=== PATIENT | female | born 1950 | race Caucasian/White ===

== ENCOUNTER 2016-12-06 17:18 | Inpatient (IN) | payer MEDICARE ==
[~2016-12-06] VITALS: Ht 162.6 cm; Wt 78.7 kg
[~2016-12-06 17:18] MED LIST: ALDACTONE25 MG PO; ALTACE10 MG; ALTACE10 MG PO; CHLORASEPTIC177 ML TOPICAL; CYMBALTA60 MG PO; FERROUS SULFAT325 MG PO; FLORASTOR250 MG PO; GABAPENTIN100 MG PO; GEMFIBROZIL600 MG PO; GLUCOPHAGE500 MG PO; HYDROCODONE-APA1 TAB PO; LEVAQUIN500 MG PO; LIPITOR40 MG PO; MUCINEX DM ER1 EAC1 PO; NORVASC10 MG PO; OMEPRAZOLE40 MG; OMEPRAZOLE40 MG PO; PEPCID20 MG PO; PERCOCET 10/3251 TA1 PO; POTASSIUM CHLO10 ME1 PO; PREDNISONE5 MG PO; QUESTRAN LIG1 PACKET PO; STERAPRED DS 1010 MG PO; TESSALON PERLE100 MG PO; VITAMIN D2000 UNIT PO; XANAX1 MG PO; ZANAFLEX4 MG PO; ZOFRAN ODT4 MG/UDTAB; ZOFRAN ODT4 MG/UDTAB PO
--- NOTE | 2016-12-06 17:43 | NUR ---
ALERT AND ORIENTED X4. ARRIVE TO ROOM VIA AMBULATORY FROM 'S OFFICE ACCOMPANIED BY DAUGHTER. COMPLAINS OF SOB. REPORTS CHRONIC PAIN. SEVERE FATIGUE. TOLERATES ACTIVITY FOR 10MIN MAX BEFORE NEEDING REST. CONTINUE ADMISSION PROCESS. BED LOCKED AND LOW. CALL LIGHT IN REACH. TWO SIDERAILS UP. SCDs ON.
--- NOTE | 2016-12-06 18:26 | NUR ---
TAKEN TO CT VIA WHEELCHAIR.
[2016-12-06 18:36] VITALS: BP 192/107; BMI 30.2
--- NOTE | 2016-12-06 19:02 | NUR ---
IV SITE TO LT HAND 22G SUCCESSFUL X2 ATTEMPTS. PREPARE SHIFT CHANGE REPORT.
[2016-12-06 19:18] LABS: BASOPHILS 0.4 % (0-2); EOSINOPHILS 0.1 % (0-7); HEMATOCRIT 38.7 % (36.0-48.0); HEMOGLOBIN 11.9 g/dL (12-16); IMMATURE GRANULOCYTES 0.2 % (0-5); LYMPHOCYTES 20.7 % (15-50); MCH 29.7 pg (26.0-34.0); MCHC 30.7 g/dL (31.0-37.0); MCV 96.5 fL (80.0-100.0); MEAN PLATELET VOLUME 11.8 fL (7.4-10.4); MONOCYTES 6.4 % (2-11); NEUTROPHILS 72.2 % (40-80); PLATELET COUNT 302 10x3/uL (130-400); RBC 4.01 10x6/uL (4.00-5.40); RDW 14.1 % (11.5-14.5); WBC 10.5 10x3/uL (4.8-10.8)
[2016-12-06 20:01] LABS: CALC OSMOLALITY 282 mosm/kg (275-300); CALCIUM 9.1 mg/dL (8.5-10.1); CARBON DIOXIDE 26.2 mmol/L (21.0-32.0); CHLORIDE - SERUM 104 mmol/L (98-107); CREATININE - SERUM 0.8 mg/dL (0.6-1.3); MAGNESIUM - SERUM 1.7 mg/dL (1.8-2.4); PHOSPHOROUS 3.7 mg/dL (2.5-4.9); POTASSIUM - SERUM 4.6 mmol/L (3.5-5.1); SODIUM 140 mmol/L (136-145); UREA NITROGEN 10 mg/dL (7-18); eGFR NON AFRICAN AMERICAN 76 mL/min (90-120)
[2016-12-06 20:04] LABS: GLUCOSE 185 mg/dL (74-106)
[2016-12-06 20:46] VITALS: BP 149/60; BP 92/73
[2016-12-06 23:58] VITALS: BP 152/80
--- NOTE | 2016-12-07 04:00 | NUR ---
RECIEVED PATIENT, BED LOW LOCKED POSITION, SIDE RAILS X2, CALL LIGHT AND WATER IN REACH, CPOC.
[2016-12-07 04:11] VITALS: BP 192/93
[2016-12-07 09:49] VITALS: BP 179/90
[2016-12-07 13:12] VITALS: BP 152/79
[2016-12-07 14:53] VITALS: Ht 162.6 cm; Wt 78.7 kg
--- NOTE | 2016-12-07 15:58 | NUR ---
ALERT AND ORIENTED X4. RESTING IN BED. LINENS SOILED FROM PERSPIRATION. LINEN AND GOWN CHANGE. FREQUENT PRODUCTIVE COUGH. SPUTUM THICK CLEAR. COMPLAINS OF BODY ACHING. TALAVERA. O2 @ 2L NC O2-SAT 96%. NO SCDs. RECIEVES LOVENOX INJ. DENIES ANY NEEDS. CONTINUE PLAN OF CARE. BED LOCKED AND LOW. CALL LIGHT IN REACH. TWO SIDERAILS UP.
--- NOTE | 2016-12-07 19:15 | NUR ---
PT RECEIVED IN BED WITH EYES OPEN VISITING WITH FAMILY. NO COMPLAINTS OR CONCERNS MADE KNOWN. REQUEST FRESH WATER AND RECEIVED. NO OTHER NEEDS MADE KNOWN. CALL LIGHT IN REACH. WILL CONTINUE TO OBSERVE.
--- NOTE | 2016-12-07 19:30 | NUR ---
PT RECEIVED IN BATHROOM. AMBULATES AD IGOR STEADY GAIT NOTED. NO NEEDS OR CONCERNS MADE KNOWN AT THIS TIME. CALL LIGHT IN REACH. WILL CONTINUE TO OBSERVE.
[2016-12-07 20:00] VITALS: BP 169/85
--- NOTE | 2016-12-07 23:49 | NUR ---
PT IN BED WITH EYES CLOSED AND CHEST RISING. PT STATES LEFT SIDE OF TONGUE FEELING SWOLLEN WITH SLIGHT SWELLING NOTED. PT STATES THAT IT STARTED FEELING SWOLLEN THIS MORNING. NO DIFFICULTY BREATHING. V/S 144/81, 98, 18 98.5 AND O2 SAT 97%. WILL CONTINUE TO OBSERVE FOR CONTINUED CHANGES. NO SIGN/SYMPTOMS OF DISTRESS NOTED. REFUSED ORAL MEDICATIONS. CALL LIGHT IN REACH.
--- NOTE | 2016-12-08 01:31 | NUR ---
PT IN BED WITH EYES CLOSED AND CHEST RISING. RESPIRATIONS EVEN AND UNLABORED. NO SIGN/SYMPTOMS OF DISTRESS NOTED. CALL LIGHTIN REACH. WILL CONTINUE TO OBSERVE.
[2016-12-08 01:32] VITALS: BP 161/86
--- NOTE | 2016-12-08 03:40 | NUR ---
PT IN BED WITH EYES CLOSED AND CHEST RISING. EASILY AROUSED TO VERBAL STIMULI. NO SIGN/SYMPTOMS OF DISTRESS. CALL LIGHT IN REACH. WILL CONTINUE TO OBSERVE.
[2016-12-08 04:16] VITALS: BP 153/92
[2016-12-08 06:26] LABS: BASOPHILS 0.1 % (0-2); EOSINOPHILS 0 % (0-7); HEMATOCRIT 40.3 % (36.0-48.0); HEMOGLOBIN 12.4 g/dL (12-16); IMMATURE GRANULOCYTES 0.7 % (0-5); LYMPHOCYTES 22.3 % (15-50); MCH 29.7 pg (26.0-34.0); MCHC 30.8 g/dL (31.0-37.0); MCV 96.4 fL (80.0-100.0); MEAN PLATELET VOLUME 11.8 fL (7.4-10.4); MONOCYTES 10.4 % (2-11); NEUTROPHILS 66.5 % (40-80); PLATELET COUNT 331 10x3/uL (130-400); RBC 4.18 10x6/uL (4.00-5.40); RDW 14.3 % (11.5-14.5); WBC 10.9 10x3/uL (4.8-10.8)
[2016-12-08 06:31] LABS: APPEARANCE HAZY (CLEAR); BILIRUBIN NEGATIVE (NEGATIVE); COLOR DK YELLOW (YELLOW); GLUCOSE NEGATIVE (NEGATIVE); KETONE MODERATE mg/dL (NEGATIVE); LEUKOCYTE ESTERASE NEGATIVE (NEGATIVE); NITRITE NEGATIVE (NEGATIVE); PROTEIN NEGATIVE (NEGATIVE); SPECIFIC GRAVITY 1.025 (1.005-1.020); UROBILINOGEN NORMAL (NORMAL)
--- NOTE | 2016-12-08 06:36 | NUR ---
PT IN BED WITH EYES CLOSED AND CHEST RISING. RECEIVED 0600 MEDICATIONS GIVEN WITHOUT DIFFICULTY. NO CONCERNS NOTED AT THIS TIME. CALL LIGHT IN REACH.
[2016-12-08 06:55] LABS: ALBUMIN 2.8 g/dL (3.4-5.0); ALKALINE PHOSPHATASE 102 U/L (46-116); ALT (SGPT) 14 U/L (10-68); BILIRUBIN - TOTAL 0.24 mg/dL (0.2-1.3); CALC OSMOLALITY 285 mosm/kg (275-300); CALCIUM 9.5 mg/dL (8.5-10.1); CARBON DIOXIDE 26.3 mmol/L (21.0-32.0); CHLORIDE - SERUM 103 mmol/L (98-107); CREATININE - SERUM 0.8 mg/dL (0.6-1.3); GLUCOSE 143 mg/dL (74-106); PROTEIN - SERUM 7.1 g/dL (6.4-8.2); SODIUM 141 mmol/L (136-145); eGFR NON AFRICAN AMERICAN 76 mL/min (90-120)
[2016-12-08 06:57] LABS: UREA NITROGEN 21 mg/dL (7-18)
--- NOTE | 2016-12-08 07:38 | NUR ---
0709-AM ROUNDING DONE WITH PATIENT APPEARING TO BE ALSEEP LAYING ON LEFT SIDE, EYES CLOSED WITH RESP EVEN AND NON LABORED. ON 2L PER NC. ON EP, LAB VALUES ARE WNL. WILL CONTINUE TO MONITOR.
[2016-12-08 08:33] VITALS: BP 185/99
[2016-12-08 12:31] VITALS: BP 183/92
--- NOTE | 2016-12-08 13:23 | NUR ---
RESTING QUIETLY WITH EYES CLOSED, RESP ARE EVEN AND NON LABORED. WILL CONTINUE TO MONITOR.
--- NOTE | 2016-12-08 16:30 | NUR ---
PATIENT TO TRY AND OBTAIN A SPUTUM FOR US, MORE SALIVA THAN SPUTUM. SHE STATES THAT SHE WILL START COUGHING AGAIN AFTER SHE EATS SOME SUPPER.
[2016-12-08 16:55] VITALS: BP 179/87
[2016-12-08 19:00] VITALS: BP 158/76
--- NOTE | 2016-12-08 19:30 | NUR ---
RECEIVED REPORT, PT SLEEPING, BED IS LOW, SRX2, CALL LIGHT IN REACH, WILL CONTINUE PLAN OF CARE
--- NOTE | 2016-12-08 23:03 | NUR ---
L. HAND IV INFITRATED, RESTARTED R. HAND IV 22 GAUGE ON 1st ATTEMT, RESTATED LEVOFLOXIN
[2016-12-09 00:20] VITALS: BP 142/77
--- NOTE | 2016-12-09 00:37 | NUR ---
ELECTRONICS INSTALLER AT BEDSIDE TO OBTAIN VITALS, CALL LIGHT IN REACH. WILL CONTINUE WITH PLAN OF CARE.
--- NOTE | 2016-12-09 04:18 | NUR ---
ASSESSMENT COMPLETE, SEE FLOWSHEET, BED IS LOW, SRX2, CALL LIGHT IN REACH, WILL CONTINUE CARE OF PLAN
[2016-12-09 04:37] VITALS: BP 169/90
[2016-12-09 06:53] LABS: BASOPHILS 0 % (0-2); EOSINOPHILS 0 % (0-7); HEMATOCRIT 40.1 % (36.0-48.0); HEMOGLOBIN 12.3 g/dL (12-16); IMMATURE GRANULOCYTES 0.4 % (0-5); LYMPHOCYTES 23.6 % (15-50); MCH 29.2 pg (26.0-34.0); MCHC 30.7 g/dL (31.0-37.0); MCV 95.2 fL (80.0-100.0); MEAN PLATELET VOLUME 11.4 fL (7.4-10.4); MONOCYTES 12.7 % (2-11); NEUTROPHILS 63.3 % (40-80); PLATELET COUNT 356 10x3/uL (130-400); RBC 4.21 10x6/uL (4.00-5.40); RDW 14.2 % (11.5-14.5); WBC 9.6 10x3/uL (4.8-10.8)
[2016-12-09 07:15] LABS: ALBUMIN 2.6 g/dL (3.4-5.0); ALKALINE PHOSPHATASE 81 U/L (46-116); ALT (SGPT) 15 U/L (10-68); CALC OSMOLALITY 283 mosm/kg (275-300); CALCIUM 8.8 mg/dL (8.5-10.1); CARBON DIOXIDE 28.8 mmol/L (21.0-32.0); CHLORIDE - SERUM 102 mmol/L (98-107); CREATININE - SERUM 0.8 mg/dL (0.6-1.3); GLUCOSE 134 mg/dL (74-106); PHOSPHOROUS 2.8 mg/dL (2.5-4.9); POTASSIUM - SERUM 3.5 mmol/L (3.5-5.1); SODIUM 139 mmol/L (136-145); UREA NITROGEN 23 mg/dL (7-18); eGFR NON AFRICAN AMERICAN 76 mL/min (90-120)
--- NOTE | 2016-12-09 08:00 | NUR ---
PATIENT IS AWAKE, BUT SLEEPY. NOT ESPECIALLY TALKATIVE.
[2016-12-09 08:20] VITALS: BP 172/96
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
[2016-12-09 12:28] VITALS: BP 174/94
[2016-12-09 16:54] VITALS: BP 141/67
--- NOTE | 2016-12-09 18:07 | NUR ---
VISITING WITH MALE MEMBER, DENIES NEEDS AT PRESENT TIME. WILL CONTINUE TO MONITOR.
--- NOTE | 2016-12-09 19:45 | NUR ---
ASSESSMENT COMPLETE, A&O, RESPERATIONS EVEN ON AT 2 LITER VIA NC. IV TO RIGHT HAND SL. SITE CLEAN AND DRY. PT DENIES PAIN OR NEEDS AT THIS TIME, BED LOW, CL IN REACH.
--- NOTE | 2016-12-09 20:27 | NUR ---
HS MEDS GIVEN, BS 186, PT REFUSED COVERAGE AT THIS TIME, STATED THAT SHE DOESNT USUALLY TAKE INSULIN AT HOME AND DOESNT WANT TO GET TOO LOW THROUGH OUT THE NIGHT. NORCO 1 TAB GIVEN AT PT REQUEST FOR C/O PAIN.
[2016-12-09 22:47] VITALS: BP 148/85
--- NOTE | 2016-12-10 00:37 | NUR ---
DOUGHNUT MAKER AT BEDSIDE TO OBTAIN VITALS, CALL LIGHT IN REACH. WILL CONTINUE WITH PLAN OF CARE.
[2016-12-10 01:51] VITALS: BP 149/71
--- NOTE | 2016-12-10 02:18 | NUR ---
RESTING WITH EYES CLOSED, RESPERATIONS EVEN, NO S/S DISTRESS NOTED.
[2016-12-10 04:37] LABS: BASOPHILS 0.1 % (0-2); EOSINOPHILS 0 % (0-7); HEMATOCRIT 38.3 % (36.0-48.0); IMMATURE GRANULOCYTES 0.9 % (0-5); LYMPHOCYTES 20.6 % (15-50); MCH 29.6 pg (26.0-34.0); MCHC 31.3 g/dL (31.0-37.0); MCV 94.3 fL (80.0-100.0); MEAN PLATELET VOLUME 11.5 fL (7.4-10.4); MONOCYTES 10.1 % (2-11); NEUTROPHILS 68.3 % (40-80); PLATELET COUNT 328 10x3/uL (130-400); RBC 4.06 10x6/uL (4.00-5.40); RDW 14.1 % (11.5-14.5); WBC 8.2 10x3/uL (4.8-10.8)
[2016-12-10 04:49] LABS: ALBUMIN 2.8 g/dL (3.4-5.0); ALKALINE PHOSPHATASE 78 U/L (46-116); ALT (SGPT) 15 U/L (10-68); CALC OSMOLALITY 285 mosm/kg (275-300); CALCIUM 8.6 mg/dL (8.5-10.1); CARBON DIOXIDE 26.5 mmol/L (21.0-32.0); CHLORIDE - SERUM 103 mmol/L (98-107); CREATININE - SERUM 0.7 mg/dL (0.6-1.3); GLUCOSE 169 mg/dL (74-106); POTASSIUM - SERUM 3.5 mmol/L (3.5-5.1); PROTEIN - SERUM 6.5 g/dL (6.4-8.2); SODIUM 140 mmol/L (136-145); UREA NITROGEN 22 mg/dL (7-18); eGFR NON AFRICAN AMERICAN 89 mL/min (90-120)
[2016-12-10 05:13] VITALS: BP 148/78
--- NOTE | 2016-12-10 07:32 | NUR ---
AM ROUNDING DONE WITH PATIENT LAYING ON LEFT SIDE, RESP ARE EVEN AND NON LABORED. RECEIVING UPDRAFT TREATMENT. SALINE LOCK SEEN TO RIGHT HAND. ON 2L PER NC. ON EP, WILL MONITOR LABS.
[2016-12-10 08:00] VITALS: BP 175/74
[2016-12-10 12:00] VITALS: BP 155/86
[2016-12-10] MEDS ORDERED: BENZONATATE200 MG PO (13:07)
[2016-12-10] MEDS ORDERED: MUCINEX DM ER1 EAC1 PO (13:07)
[2016-12-10] MEDS ORDERED: FLORAJEN3 CAPS460 MG PO (13:08)
[2016-12-10] MEDS ORDERED: SINGULAIR10 MG PO (13:08)
[2016-12-10] MEDS ORDERED: ARAVA10 MG PO (13:09)
[2016-12-10] MEDS ORDERED: LEVAQUIN750 MG PO (13:10)
--- NOTE | 2016-12-10 15:23 | NUR ---
Patient Name: HEMANTH DUMONT Admission Status: Urgent Accout number: [id number] Admission Date: 12-07-2016 : 1950 Admission Diagnosis: Attending: BRYCE Current LOS: 3 Anticipated DC Date: 12-10-2016 Planned Disposition: Home Primary Insurance: MEDICARE A & B Discharge Planning Comments: * Is the patient Alert and Oriented? Yes 0 * How many steps to enter\exit or inside your home? 25 AT DTRS 0 * PCP DR. SAXENA 0 * Pharmacy [facility] 0 * Preadmission Environment Home Alone 0 * ADLs Independent 0 * Equipment None 0 * Other Equipment NO MEDICAL EQUIPMENT PROVIDER PREFERENCE 0 * List name and contact numbers for known caregivers / representatives who currently or will assist patient after discharge: ANTONIO DEVI, DAUGHTER, 0 * Community resources currently utilized None 0 * Please name any agencies selected above. NONE 0 * Additional services required to return to the preadmission environment? No 0 * Can the patient safely return to the preadmission environment? Yes 0 * Has this patient been hospitalized within the prior 30 days at any hospital? No 0 CM MET WITH PT IN ROOM TO DISCUSS DISCHARGE PLANNING AND NEEDS. PT REPORTS LIVING AT HOME INDEPENDENTLY AND ALONE; PT REPORTS UPON DISCHARGE, SHE WILL BE STAYING WITH HER ADULT DAUGHTER. PT HAS NO MEDICAL EQUIPMENT AND NO OUTSIDE SERVICES ASSISTING IN THE HOME. CM DISCUSSED AVAILABILITY OF HOME HEALTH, REHAB SERVICES AND MEDICAL EQUIPMENT. PT DENIES DISCHARGE NEEDS, REPORTS HER DAUGHTER IS ARRANGING TRANSPORTATION TO LOC[employer]OTIVE [employer] ENGINEER PT WHEN HER DAUGHTER GETS OFF FROM WORK THIS EVENING. IMPORTANT MESSAGE FROM MEDICARE PROVIDED AND EXPLAINED. Structural Biologist: Mauro Cunningham
[2016-12-10 16:46] VITALS: BP 159/80
--- NOTE | 2016-12-10 17:46 | NUR ---
1700-VERBAL AND WRITTEN DISCHARGE INSTRUCTIONS GIVEN TO PATIENT AND SON. SALINE LOCK REMOVED WITH CATH TIP INTACT. DISCHARGED HOME VIA WHEELCHAIR.
== END 2016-12-10 17:30 | disposition home or self-care (01) | DRG 190 ==
LOC: OBSVTIME 17:18 → D.M2 17:18
PROVIDERS: Emergency Medicine; ADMIT Family Medicine
DX: J44.0 Chronic obstructive pulmonary disease with (acute) lower respiratory infection (principal); J18.9 Pneumonia, unspecified organism; F17.203 Nicotine dependence unspecified, with withdrawal; J44.1 Chronic obstructive pulmonary disease with (acute) exacerbation; J20.9 Acute bronchitis, unspecified; R91.1 Solitary pulmonary nodule; E78.5 Hyperlipidemia, unspecified; D50.9 Iron deficiency anemia, unspecified; G89.29 Other chronic pain; E04.2 Nontoxic multinodular goiter; I10 Essential (primary) hypertension; K21.9 Gastro-esophageal reflux disease without esophagitis; M06.9 Rheumatoid arthritis, unspecified; E11.65 Type 2 diabetes mellitus with hyperglycemia

== ENCOUNTER 2016-12-17 10:21 | Inpatient (IN) | payer MEDICARE ==
[~2016-12-17] VITALS: Ht 162.6 cm; Wt 81.6 kg
[~2016-12-17 10:21] MED LIST changes: +ARAVA10 MG PO; +BENZONATATE200 MG PO; +FLORAJEN3 CAPS460 MG PO; +LEVAQUIN750 MG PO; +SINGULAIR10 MG PO
[2016-12-17 11:34] LABS: BASOPHILS 0.2 % (0-2); EOSINOPHILS 0.2 % (0-7); HEMATOCRIT 41.5 % (36.0-48.0); HEMOGLOBIN 12.9 g/dL (12-16); IMMATURE GRANULOCYTES 0.8 % (0-5); LYMPHOCYTES 18.9 % (15-50); MCH 29.1 pg (26.0-34.0); MCHC 31.1 g/dL (31.0-37.0); MCV 93.5 fL (80.0-100.0); MONOCYTES 12.2 % (2-11); NEUTROPHILS 67.7 % (40-80); PLATELET COUNT 325 10x3/uL (130-400); RBC 4.44 10x6/uL (4.00-5.40); WBC 10.8 10x3/uL (4.8-10.8)
[2016-12-17 11:51] LABS: ALBUMIN 2.3 g/dL (3.4-5.0); ALKALINE PHOSPHATASE 93 U/L (46-116); ALT (SGPT) 13 U/L (10-68); CALC OSMOLALITY 281 mosm/kg (275-300); CALCIUM 8.5 mg/dL (8.5-10.1); CARBON DIOXIDE 26.8 mmol/L (21.0-32.0); CHLORIDE - SERUM 103 mmol/L (98-107); CREATININE - SERUM 0.8 mg/dL (0.6-1.3); GLUCOSE 133 mg/dL (74-106); SODIUM 140 mmol/L (136-145); UREA NITROGEN 15 mg/dL (7-18); eGFR NON AFRICAN AMERICAN 76 mL/min (90-120)
[2016-12-17 11:55] LABS: POTASSIUM - SERUM 2.8 mmol/L (3.5-5.1)
[2016-12-17 13:20] LABS: APPEARANCE HAZY (CLEAR); BILIRUBIN NEGATIVE (NEGATIVE); COLOR DK YELLOW (YELLOW); GLUCOSE NEGATIVE (NEGATIVE); KETONE MODERATE mg/dL (NEGATIVE); LEUKOCYTE ESTERASE TRACE (NEGATIVE); NITRITE NEGATIVE (NEGATIVE); PROTEIN TRACE mg/dL (NEGATIVE); UROBILINOGEN NORMAL (NORMAL)
[2016-12-17 13:22] LABS: BACTERIA MODERATE /hpf (NONE SEEN); MUCUS >1+ /lpf (NONE SEEN); RED CELLS - URINE 0-5 /hpf (0-5)
[2016-12-17 13:26] LABS: UDS - AMPHET NEGATIVE QUAL (NEGATIVE); UDS - BARB NEGATIVE QUAL (NEGATIVE); UDS - BENZO NEGATIVE QUAL (NEGATIVE); UDS - COCAINE NEGATIVE QUAL (NEGATIVE); UDS - METH NEGATIVE QUAL (NEGATIVE); UDS - OPIATE POSITIVE QUAL (NEGATIVE); UDS - PCP NEGATIVE QUAL (NEGATIVE); UDS - THC POSITIVE QUAL (NEGATIVE)
--- NOTE | 2016-12-17 18:38 | NUR ---
PATIENT RECEIVED TO FLOOR FROM ER VIA STRETCHER. PATIENT TRANSFERRED TO BED. POSITIONED FOR COMFORT. IVF INITIATED PER ORDER. C/O NAUSEA. ZOFRAN ADMINISTERED PER PRN ORDER. PATIENT STATES SHE DOESN'T THINK SHE CAN HOLD DOWN A PILL AT THIS TIME. ORAL MEDICATION HELD AT THIS TIME. FAMILY AT BEDSIDE. MARY ALARM ON. YELLOW BAND PLACED ON PATIENT. SIDE RAILS UP X2. BED IN LOW POSITION. CALL LIGHT IN REACH.
--- NOTE | 2016-12-17 19:30 | NUR ---
PT RECEIVED SITTING UP IN BED, FAMILY MEMBERS AT BEDSIDE. PT DENIES NEEDS AT THIS TIME. CALL LIGHT AND H2O IN PT REACH. BED IN LOW POSITION. SIDE RAILS UP X2.
[2016-12-17 20:00] VITALS: BP 130/94
--- NOTE | 2016-12-17 20:00 | NUR ---
PT REFUSES ALL PO MEDS EXCEPT PRN NORCO. PT STATES, "I WILL THROW IT ALL UP IF I TRY TO TAKE ALL OF THAT." EXPLAINED IMPORTANCE OF POTASSIUM D/T LOW POTASSIUM LEVELS, PT CONTINUES TO REFUSE HS MEDS.
[2016-12-17 20:10] VITALS: BP 130/94; BMI 30.9
[2016-12-18] VITALS: BP 111/61
[2016-12-18 04:00] VITALS: BP 126/62
[2016-12-18 05:09] LABS: BASOPHILS 0.2 % (0-2); EOSINOPHILS 0.7 % (0-7); HEMATOCRIT 34.4 % (36.0-48.0); HEMOGLOBIN 10.7 g/dL (12-16); IMMATURE GRANULOCYTES 0.9 % (0-5); MCH 29.3 pg (26.0-34.0); MCHC 31.1 g/dL (31.0-37.0); MCV 94.2 fL (80.0-100.0); MEAN PLATELET VOLUME 10.8 fL (7.4-10.4); MONOCYTES 12.7 % (2-11); NEUTROPHILS 63.5 % (40-80); PLATELET COUNT 309 10x3/uL (130-400); RBC 3.65 10x6/uL (4.00-5.40); RDW 13.9 % (11.5-14.5); WBC 9.2 10x3/uL (4.8-10.8)
[2016-12-18 05:20] LABS: CALC OSMOLALITY 274 mosm/kg (275-300); CALCIUM 8.1 mg/dL (8.5-10.1); CHLORIDE - SERUM 102 mmol/L (98-107); CREATININE - SERUM 0.7 mg/dL (0.6-1.3); GLUCOSE 94 mg/dL (74-106); POTASSIUM - SERUM 3.1 mmol/L (3.5-5.1); SODIUM 137 mmol/L (136-145); UREA NITROGEN 16 mg/dL (7-18); eGFR NON AFRICAN AMERICAN 89 mL/min (90-120)
--- NOTE | 2016-12-18 07:20 | NUR ---
PATIENT RECEIVED ALERT IN LOW FERRIS POSITION. RESPIRATIONS EVEN AND UNLABORED. ICE WATER PROVIDED PER REQUEST. NO FURTHER NEEDS VOICED. SIDE RAILS UP X2. BED IN LOW POSITION. CALL LIGHT IN REACH.
[2016-12-18 08:05] VITALS: BP 129/61
--- NOTE | 2016-12-18 08:06 | NUR ---
PATIENT REPOSITIONED SELF IN BED FOR COMFORT. NO SIGNS OF DISTRESS NOTED. BREAKFAST TRAY SET UP. SCHEDULED MEDICATION ADMINISTERED. SIDE RAILS UP X2. BED IN LOW POSITION. CALL LIGHT IN REACH.
--- NOTE | 2016-12-18 10:12 | HP ---
PATIENT: HEMANTH SHAH MEDICAL RECORD: [id number] ACCOUNT: [id number] LOCATION:D.[id number] : [birth year] ADMISSION DATE: 12/17/16 HISTORY AND PHYSICAL EXAMINATION HISTORY OF PRESENT ILLNESS: Ms. Shah is a 66-year-old white female that is brought to the Emergency Room for mental status changes. She has a history of multiple medical problems and is followed by Dr. Dykes, who is her primary care doctor. She is found to have a UTI and is being admitted at this time. Her white count is 10, sodium is 140, potassium 2.8, BUN 15 and creatinine 0.8. Her urine shows 10-25 wbc's per high powered field. She is confused. She is a rheumatoid arthritis patient and is on immunosuppressive drugs at this time. PAST MEDICAL HISTORY: Significant for known rheumatoid arthritis. She has a history of pulmonary mass, has had an extensive workup in the past by Dr. Edmonds and Dr. Eduardo, which was negative for malignancy or TB. It was felt that this probably is related to her rheumatoid. She has a history of neuropathy, chronic pain, diabetes, hypertension, hyperlipidemia, COPD, rheumatoid arthritis, depression, anxiety and insomnia. PAST SURGICAL HISTORY: Previous surgeries include a bilateral hysterectomy and several lung biopsies. ALLERGIES OR INTOLERANCES: INCLUDE METHOTREXATE. HOME MEDICATIONS: At this time include tizanidine 4 mg a day, amlodipine 10 mg a day, gemfibrozil 600 b.i.d., atorvastatin 40 mg a day, ramipril 10 a day, Linneus 10 q. 4 p.r.n., duloxetine 60 mg daily, gabapentin 100 mg t.i.d., potassium chloride 10 at bedtime, Singulair 10 mg a day, benzonatate 200 mg t.i.d., Mucinex DM b.i.d., famotidine 20 mg a day, omeprazole 40 mg a day, Zofran ODT, Lactinex, metformin 500 b.i.d., vitamin D and Arava ____ daily. FAMILY HISTORY: Noncontributory. SOCIAL HISTORY: The patient is a very poor historian, but looks like she is still a smoker. REVIEW OF SYSTEMS: Poor historian. She states that she just feels tired and worn out. She denies any chest pain or shortness of breath. She does complain of a little bit of lower abdominal pain and some recent dysuria, no back pain. PHYSICAL EXAMINATION: GENERAL: She is ____ lethargic, but arouses pretty easily. HEENT: Head is normocephalic. NECK: Soft and supple. HEART: Regular. LUNGS: Clear. ABDOMEN: Soft with some lower quadrant tenderness. EXTREMITIES: Reveal no edema. NEUROLOGIC: Without any gross focal deficits. IMPRESSION: 1. Urinary tract infection. 2. Metabolic encephalopathy, rheumatoid arthritis, hypertension, diabetes, chronic obstructive pulmonary disease and hyperlipidemia. HISTORY AND PHYSICAL [id number] HEMANTH SHAH JANE PLAN: Admit, IV antibiotics, cultures. See orders for plan. TRANSINT:[id number] Voice Confirmation ID: [id number] DOCUMENT ID: [id number] MIKE HANCOCK DO at 1012 CC: [id number] DICTATION DATE: 12/17/161758 INFORMATION SUPPORT PROJECT MANAGER: 12/17/162042 ADM IN [facility] [place] [id number] [place] [address]
--- NOTE | 2016-12-18 10:14 | NUR ---
PATIENT IN LOW FERRIS POSITION RESTING WITH EYES CLOSED. RESPIRATIONS EVEN AND UNLABORED. WAKES EASY. SCHEDULED POTASSIUM ADMINISTERED. DENIES NEEDS. SIDE RAILS UP X2. BED IN LOW POSITION. CALL LIGHT IN REACH.
--- NOTE | 2016-12-18 11:20 | NUR ---
ACCU CHECK 101
[2016-12-18 11:56] VITALS: Ht 162.6 cm; Wt 81.6 kg
[2016-12-18 12:38] VITALS: BP 120/63
--- NOTE | 2016-12-18 14:30 | NUR ---
PATIENT IN LEFT LATERAL POSITION RESTING WITH EYES CLOSED. RESPIRATIONS EVEN AND UNLABORED. SIDE RAILS UP X2. BED IN LOW POSITION. CALL LIGHT IN REACH.
[2016-12-18 16:01] VITALS: BP 140/70
--- NOTE | 2016-12-18 16:35 | NUR ---
PATIENT IN RIGHT LATERAL POSITION RESTING WITH EYES CLOSED. RESPIRATIONS EVEN AND UNLABORED. WAKES EASY. SCHEDULED MEDICATION ADMINISTERED. ACCU CHECK 92. SIDE RAILS UP X2. BED IN LOW POSITION. CALL LIGHT IN REACH.
[2016-12-18 20:00] VITALS: BP 153/93
--- NOTE | 2016-12-18 22:29 | NUR ---
REC'D. CHGE. OF SHIFT IN BED WATCHING TV DENIES ANY DISCOMFORT AT PRESENT TIME WILL CONTINUE TO MONITOR FOR ANY CHGES AND FOLLOW CURRENT PLAN OF CARE
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
[2016-12-19] VITALS: BP 135/64
[2016-12-19 04:00] VITALS: BP 170/94
--- NOTE | 2016-12-19 07:35 | NUR ---
PATIENT RECEIVED IN LOW FERRIS POSITION RESTING QUIETLY. RESPIRATIONS EVEN AND UNLABORED. DENIES NEEDS. SIDE RAILS UP X2. BED IN LOW POSITION. CALL LIGHT IN REACH.
[2016-12-19 07:44] VITALS: BP 170/80
--- NOTE | 2016-12-19 08:25 | NUR ---
PATIENT ALERT IN BED. NO SIGNS OF DISTRESS NOTED. ASSISTED UP TO RESTROOM THEN BACK TO BED STAND BY ASSIST. POSITIONED SELF FOR COMFORT. SCHEDULED MEDICATION ADMINISTERED. C/O PAIN 02/07. NORCO PER PRN ORDER. INCENTIVE SPIROMETER AND TEACHING ON USE PROVIDED. STATES UNDERSTANDING. WILL ENCOURAGE USE. DENIES FURTHER NEEDS. SIDE RAILS UP X2. BED IN LOW POSITION. CALL LIGHT IN REACH.
--- NOTE | 2016-12-19 11:10 | NUR ---
ACCU CHECK 99
[2016-12-19 12:40] VITALS: BP 140/68
[2016-12-19 14:54] LABS: ERYTHROCYTE SEDIMENTATION RATE 93 mm/hr (0-30)
--- NOTE | 2016-12-19 15:24 | NUR ---
ALERT IN BED VISITING WITH FAMILY. C/O PAIN 02/07. 1 TAB NORCO ADMINISTERED PER PRN ORDER. NO FURTHER NEEDS VOICED. SIDE RAILS UP X2. BED IN LOW POSITION. CALL LIGHT IN REACH.
[2016-12-19 15:50] VITALS: BP 164/89
--- NOTE | 2016-12-19 17:30 | NUR ---
PATIENT ALERT IN BED TALKING ON PHONE. NO SIGNS OF DISTRESS NOTED. DENIES NEEDS. SIDE RAILS UP X2. BED IN LOW POSITION. CALL LIGHT IN REACH.
[2016-12-19 20:00] VITALS: BP 135/88
--- NOTE | 2016-12-19 21:02 | NUR ---
PT C/O GENERALIZED PAIN RATING 5/10 ON PAIN SCALE WAS MEDICATED WITH NORCO PER ORDERS. C/L IN REACH AT BEDSIDE.
[2016-12-20 00:09] VITALS: BP 148/90; BP 156/80
--- NOTE | 2016-12-20 03:18 | NUR ---
PATIENT RESTING WITH EYES CLOSED AND NO VISIBLE SIGNS OF DISTRESS. BED IN THE LOWEST POSITION AND CALL LIGHT WITHIN REACH.
[2016-12-20 04:00] VITALS: BP 130/77
[2016-12-20 07:58] LABS: BASOPHILS 0.1 % (0-2); EOSINOPHILS 0.8 % (0-7); HEMATOCRIT 34.4 % (36.0-48.0); HEMOGLOBIN 10.8 g/dL (12-16); IMMATURE GRANULOCYTES 0.8 % (0-5); MCH 29.4 pg (26.0-34.0); MCHC 31.4 g/dL (31.0-37.0); MCV 93.7 fL (80.0-100.0); MEAN PLATELET VOLUME 10.4 fL (7.4-10.4); MONOCYTES 12.5 % (2-11); NEUTROPHILS 62.8 % (40-80); PLATELET COUNT 327 10x3/uL (130-400); RBC 3.67 10x6/uL (4.00-5.40); RDW 13.9 % (11.5-14.5); WBC 7.4 10x3/uL (4.8-10.8)
[2016-12-20 07:59] VITALS: BP 130/68
[2016-12-20 08:12] LABS: ALKALINE PHOSPHATASE 84 U/L (46-116); ALT (SGPT) 11 U/L (10-68); BILIRUBIN - TOTAL 0.33 mg/dL (0.2-1.3); CALC OSMOLALITY 275 mosm/kg (275-300); CALCIUM 8.6 mg/dL (8.5-10.1); CARBON DIOXIDE 26.1 mmol/L (21.0-32.0); CHLORIDE - SERUM 103 mmol/L (98-107); CREATININE - SERUM 0.6 mg/dL (0.6-1.3); GLUCOSE 108 mg/dL (74-106); PROTEIN - SERUM 6.3 g/dL (6.4-8.2); SODIUM 139 mmol/L (136-145); UREA NITROGEN 4 mg/dL (7-18); eGFR NON AFRICAN AMERICAN > 90 mL/min (90-120)
[2016-12-20 12:07] VITALS: BP 132/61
[2016-12-20] MEDS ORDERED: SINGULAIR10 MG PO (13:00)
[2016-12-20] MEDS ORDERED: FLORAJEN3 CAPS460 MG PO (13:00)
[2016-12-20] MEDS ORDERED: LEVAQUIN750 MG PO (13:01)
--- NOTE | 2016-12-20 13:48 | NUR ---
AWAKE AND AELRT. ORIENTED X3. REPORTS FEELING MUCH BETTER TODAY AND MORE AWARE OF WHERE SHE IS. DENIES NEEDS. REQUESTED ZOFRAN FOR NAUSEA. WILL CHECK PRN.
--- NOTE | 2016-12-20 14:36 | NUR ---
DISCUSSED PT DISCHARGE INSTRUCTIONS WITH PT AND FAMILY DC PAPERS SIGNED WITH NO QUESTIONS AT THIS TIME. IV TO L AC DC'D WITH CATHETER INTACT. PRESSURE AND DRESSING APPLIED. ESCORTED OUT VIA WC.
--- NOTE | 2016-12-20 15:35 | NUR ---
Patient Name: HEMANTH DUMONT Admission Status: ER Accout number: [id number] Admission Date: 12-17-2016 : 1950 Admission Diagnosis:URINARY TRACT INFECTION, SITE NOT SPECIFIED Attending: RAMON Current LOS: 3 Anticipated DC Date: 12-20-2016 Planned Disposition: Home with Home Health Primary Insurance: MEDICARE A & B Discharge Planning Comments: CM MET WITH PATIENT REGARDING D/C NEEDS AND PLANS. PATIENT STATED SHE IS LIVING WITH HER DAUGHTER AND IT IS SAFE. PATIENTS GRANDDAUGHTER WILL DRIVE HER HOME AT DISCHARGE. PATIENT HAS A RAMP TO ENTER HOME AND NO STAIRS INSIDE. PATIENT IS INDEPENDENT WITH HER CARE AND HAS A WALKER, WHEELCHAIR, SHOWER CHAIR, BS COMMODE, AND GLUCOMETER AT HOME. PATIENTS PCP IS DR. SAXENA AND PHARMACY IS [facility]. PATIENT SIGNED THE [facility] FORM FOR [facility]. CM WILL CONTINUE TO FOLLOW PATIENT WITH D/C NEEDS AND PLANS. PCP DR. HEMANTH [facility] [phone] JOSEPH PENNY [phone] (DAUGHTER) Geography Department Chair: Sarah Espinal Is the patient Alert and Oriented? Yes 0 * How many steps to enter\exit or inside your home? ramp 0 * PCP DR. SAXENA 0 * Pharmacy [facility] 0 * Preadmission Environment Home with Family 0 * ADLs Independent 0 * Equipment Bedside Commode Glucometer Shower Chair Walker Wheelchair 0 * List name and contact numbers for known caregivers / representatives who currently or will assist patient after discharge: JOSEPH PENNY (DAUGHTER) [phone] 0 * Community resources currently utilized None 0 * Additional services required to return to the preadmission environment? Yes 0 * Can the patient safely return to the preadmission environment? Yes 0 * Has this patient been hospitalized within the prior 30 days at any hospital? Yes 0 Grand Total: 0
--- NOTE | 2016-12-20 16:30 | NUR ---
LATE ENTRY: PATIENT DISCHARGED HOME WITH [facility]. FAMILY DROVE PATIENT HOME.
== END 2016-12-20 14:38 | disposition home health service (06) | DRG 689 ==
LOC: D.ER 10:21 → D.MS 17:45
PROVIDERS: Emergency Medicine; ADMIT Family Medicine
DX: N39.0 Urinary tract infection, site not specified (principal); G93.41 Metabolic encephalopathy; M06.9 Rheumatoid arthritis, unspecified; I10 Essential (primary) hypertension; E11.65 Type 2 diabetes mellitus with hyperglycemia; Z79.84 Long term (current) use of oral hypoglycemic drugs; J44.9 Chronic obstructive pulmonary disease, unspecified; E78.5 Hyperlipidemia, unspecified; R91.1 Solitary pulmonary nodule

== ENCOUNTER → 2016-12-24 15:06 | Outpatient (CLI) | payer MEDICARE ==
[2016-12-18 11:56] VITALS: BMI 30.9
[2016-12-24 16:47] LABS: ALBUMIN 2.2 g/dL (3.4-5.0); ANION GAP 13.8 mmol/L (8-16); BILIRUBIN - TOTAL 0.12 mg/dL (0.2-1.3); CALCIUM 8.5 mg/dL (8.5-10.1); CARBON DIOXIDE 26.8 mmol/L (21.0-32.0); CREATININE - SERUM 0.9 mg/dL (0.6-1.3); POTASSIUM - SERUM 3.6 mmol/L (3.5-5.1); PROTEIN - SERUM 5.9 g/dL (6.4-8.2)
== END | disposition home or self-care (01) ==
LOC: D.LABREF 15:06
PROVIDERS: Family Medicine
DX: I10 Essential (primary) hypertension (principal); N39.0 Urinary tract infection, site not specified; R53.1 Weakness; R53.82 Chronic fatigue, unspecified

== ENCOUNTER → 2016-12-26 16:16 | Outpatient (CLI) | payer MEDICARE ==
[2016-12-18 11:56] VITALS: BMI 30.9
[2016-12-26 16:32] LABS: APPEARANCE CLEAR (CLEAR); BILIRUBIN NEGATIVE (NEGATIVE); COLOR YELLOW (YELLOW); GLUCOSE NEGATIVE (NEGATIVE); KETONE NEGATIVE (NEGATIVE); LEUKOCYTE ESTERASE NEGATIVE (NEGATIVE); NITRITE NEGATIVE (NEGATIVE); PROTEIN NEGATIVE (NEGATIVE); SPECIFIC GRAVITY 1.015 (1.005-1.020); UROBILINOGEN NORMAL (NORMAL)
== END | disposition home or self-care (01) ==
LOC: D.LABREF 16:16
PROVIDERS: Family Medicine
DX: N39.0 Urinary tract infection, site not specified (principal); R30.9 Painful micturition, unspecified

== ENCOUNTER → 2017-01-18 23:41 | Outpatient (CLI) | payer MEDICARE ==
[2016-12-18 11:56] VITALS: BMI 30.9
[2017-01-18 23:58] LABS: APPEARANCE CLEAR (CLEAR); BILIRUBIN NEGATIVE (NEGATIVE); COLOR YELLOW (YELLOW); GLUCOSE NEGATIVE (NEGATIVE); KETONE NEGATIVE (NEGATIVE); LEUKOCYTE ESTERASE NEGATIVE (NEGATIVE); NITRITE NEGATIVE (NEGATIVE); PROTEIN NEGATIVE (NEGATIVE); SPECIFIC GRAVITY 1.005 (1.005-1.020); UROBILINOGEN NORMAL (NORMAL)
== END | disposition home or self-care (01) ==
LOC: D.LABREF 23:41
PROVIDERS: Family Medicine
DX: R30.0 Dysuria (principal)

== ENCOUNTER 2017-12-12 16:11 | Inpatient (IN) | payer MEDICARE ==
[~2017-12-12] VITALS: Ht 162.6 cm; Wt 85.0 kg
--- NOTE | ~2017-12-12 | OP ---
PATIENT NAME: HEMANTH SHAH MEDICAL RECORD: [id number] :[birth year] LOCATION:D.[facility] ADMISSION DATE:12/12/17 SURGEON: REYNA NETTLES MD DATE OF OPERATION: 12/16/2017 PROCEDURE: Fiberoptic bronchoscopy. INDICATION: Ms. Shah is a 67-year-old female. She has a history of multiple pulmonary nodules over the year. She had a biopsy a year ago. She also had a bronchoscopy last year. The nodules are now getting cavitating. A fiberoptic bronchoscopy was carried out to obtain specimen for culture and sensitivity. PROCEDURE IN DETAIL: After signing the consent form and obtaining the conscious sedation, the fiberoptic bronchoscope was easily passed through the mouth. The epiglottis was normal, moving equally on phonation. The vocal cords were normal, moving equally on phonation. The main trachea was normal. The erin was sharp. There was thick yellowish secretion of the right main bronchus. The subsegment to the right upper lobe, right lower lobe, right middle lobe within normal range. No endobronchial lesions were seen. The left main bronchus was normal. Subsegment to the left upper lobe, lingula, left lower lobe within normal range. No endobronchial lesion was seen. Specimen washing was obtained bilaterally and sent for routine culture and sensitivity, AFB and fungus and for cytology. Overall, the patient tolerated the procedure very well. MEDICATIONS GIVEN: Morphine 5 mg IM, atropine 0.6 mg IM, fentanyl 100 mcg IV in divided doses, and Versed 5 mg IV in divided doses. MONITORING: EKG, pulse, and blood pressure were monitored throughout the procedure. The patient tolerated the procedure very well. TRANSINT:[id number] Voice Confirmation ID: [id number] DOCUMENT ID: [id number] REYNA NETTLES MD CC: [id number] DICTATION DATE: 12/16/17 1747 SERVICE OBSERVER CHIEF: 12/17/17 0441 [place] [address]
--- NOTE | ~2017-12-12 | CN ---
PATIENT NAME:HEMANTH SHAH MEDICAL RECORD: [id number] : 54 LOCATION:D.[facility] ADMIT DATE: 12/12/17 ACCOUNT: [id number] CONSULTING PHYSICIAN: REYNA NETTLES MD REFERRING PHYSICIAN: FRANK SEXTON MD DATE OF CONSULTATION: 12/13/2017 Pulmonary Consultation REQUESTING PHYSICIAN: Dr. Frank Sexton. REASON FOR CONSULTATION: Acute exacerbation of COPD and pulmonary nodule. HISTORY OF PRESENT ILLNESS: Ms. Shah is a 67-year-old female who is a patient of Dr. Smith. She has a history of multiple pulmonary nodules. She had a bronchoscopy in the past as well as she has a lung biopsy that was negative for malignancy. According to the patient, the biopsy was done at [facility]. REVIEW OF SYSTEMS: As in history of present illness. PAST MEDICAL HISTORY: 1. COPD. 2. Diabetes mellitus type 2. 3. Rheumatoid arthritis. 4. Rheumatoid lung disease. 5. History of pneumonia. 6. Neuropathy. 7. Anxiety and depression. PAST SURGICAL HISTORY: 1. She has a cholecystectomy. 2. Hysterectomy. 3. She has had two lung biopsies in the past. ALLERGIES: SHE IS ALLERGIC TO METHOTREXATE. MEDICATIONS: She is on Singulair. Her other medication is reviewed. PERSONAL AND SOCIAL HISTORY: The patient still continued to smoke on an everyday basis. She is a nondrinker. She is also smoking marijuana. FAMILY HISTORY: Significant for cardiovascular disease. PHYSICAL EXAMINATION: GENERAL: SPO2 is 99%. HEENT: Conjunctivae are pink. Sclerae nonicteric. NECK: Supple, no JVD. CHEST: There is prolonged expiration with wheezing. There are also crackles. HEART: Rhythm regular, normal sound, no murmur. ABDOMEN: Soft, bowel sounds present. No hepatosplenomegaly. RECTAL: Deferred. EXTREMITIES: No cyanosis, no clubbing, no pedal edema. CENTRAL NERVOUS SYSTEM: The patient is awake and alert. There is no obvious cranial nerve abnormality. The gait was not tested. CONSULT REPORT [id number] HEMANTH SHAH IMAGING: CTA of the chest: There are no pulmonary embolism, but multiple cavity lesion bilaterally. Some of the nodules are getting worse compared to the previous CT scan. The thick lesion of the right kidney is unchanged. OTHER LABORATORY DATA: CBC: The WBC is 10.3, hemoglobin 10.5, hematocrit 34.5, the platelet count 430. Chemistry: Sodium 141, potassium 4.1, BUN is 11, creatinine 0.8. Glucose 149. IMPRESSION: 1. Acute exacerbation of chronic obstructive pulmonary disease. 2. Tracheobronchitis, rule out underlying pneumonia. 3. Multiple pulmonary nodules with cavitary lesion. 4. Rheumatoid lung disease. 5. Tobacco dependence syndrome. 6. History of tuberculosis exposure in the past. 7. Rheumatoid arthritis. RECOMMENDATION: 1. We will start on methylprednisolone IV. Start her on Zosyn and Levaquin to cover for Gram-negative as well as anaerobe. 2. Albuterol ipratropium nebulizer. 3. Brovana, budesonide nebulizer. 4. The patient had a workup and pulmonary nodule biopsy in [place] 2 years ago and it was benign. She was seen by my partner, Dr. Edmonds and she had a bronchoscopy and it was negative for any malignancy. 5. DVT prophylaxis. 6. Follow up labs and chest radiograph. Dr. Sexton, thank you for involving me in the care of Ms. Shah. TRANSINT:[id number] Voice Confirmation ID: [id number] DOCUMENT ID: [id number] REYNA NETTLES MD CC: FRANK SEXTON [id number] DICTATION DATE: 12/13/171906 EQUIPMENT INSTALLATION PROFESSIONAL: 12/13/172237 ADM IN [facility] [address] [place] [address]
[2017-12-12 19:27] LABS: BASOPHILS 0.1 % (0-2); EOSINOPHILS 0.1 % (0-7); HEMATOCRIT 34.5 % (36.0-48.0); HEMOGLOBIN 10.5 g/dL (12-16); IMMATURE GRANULOCYTES 0.5 % (0-5); LYMPHOCYTES 18.4 % (15-50); MCH 28.2 pg (26.0-34.0); MCHC 30.4 g/dL (31.0-37.0); MCV 92.7 fL (80.0-100.0); MEAN PLATELET VOLUME 10.7 fL (7.4-10.4); MONOCYTES 7.2 % (2-11); NEUTROPHILS 73.7 % (40-80); RBC 3.72 10x6/uL (4.00-5.40); RDW 15.6 % (11.5-14.5); WBC 10.3 10x3/uL (4.8-10.8)
[2017-12-12 19:33] LABS: APTT 30.2 SECONDS (22.8-39.4); INR 1.07 (0.85-1.17); PROTIME 13.5 SECONDS (11.6-15.0)
[2017-12-12 19:34] LABS: D-DIMER-QUANTITATIVE 1.97 ug/mLFEU (0.20-0.54)
[2017-12-12 19:37] LABS: PLATELET COUNT 430 10x3/uL (130-400)
[2017-12-12 19:40] LABS: ALBUMIN 2.2 g/dL (3.4-5.0); ALKALINE PHOSPHATASE 111 U/L (46-116); ALT (SGPT) 12 U/L (10-68); BILIRUBIN - TOTAL 0.17 mg/dL (0.2-1.3); CALC OSMOLALITY 281 mosm/kg (275-300); CALCIUM 9.3 mg/dL (8.5-10.1); CARBON DIOXIDE 23.5 mmol/L (21.0-32.0); CHLORIDE - SERUM 106 mmol/L (98-107); CREATININE - SERUM 0.8 mg/dL (0.6-1.3); GLUCOSE 129 mg/dL (74-106); POTASSIUM - SERUM 4.1 mmol/L (3.5-5.1); PROTEIN - SERUM 7.7 g/dL (6.4-8.2); SODIUM 141 mmol/L (136-145); UREA NITROGEN 11 mg/dL (7-18); eGFR NON AFRICAN AMERICAN 76 mL/min (90-120)
[2017-12-12 19:52] LABS: CKMB 0.6 U/L (0.0-3.6); CREATINE KINASE 33 UL (21-215); PRO BNP 437 pg/mL (0-125)
[2017-12-12 19:55] LABS: TROPONIN-I < 0.017 ng/mL (0.000-0.060)
[2017-12-13 07:02] LABS: BASOPHILS 0.1 % (0-2); EOSINOPHILS 0.9 % (0-7); HEMOGLOBIN 9.7 g/dL (12-16); IMMATURE GRANULOCYTES 0.6 % (0-5); LYMPHOCYTES 31.3 % (15-50); MCHC 30.3 g/dL (31.0-37.0); MCV 92.2 fL (80.0-100.0); MEAN PLATELET VOLUME 10.3 fL (7.4-10.4); MONOCYTES 8.8 % (2-11); NEUTROPHILS 58.3 % (40-80); PLATELET COUNT 389 10x3/uL (130-400); RBC 3.47 10x6/uL (4.00-5.40); RDW 15.6 % (11.5-14.5); WBC 8.7 10x3/uL (4.8-10.8)
[2017-12-13 07:23] LABS: ALKALINE PHOSPHATASE 101 U/L (46-116); BILIRUBIN - TOTAL 0.17 mg/dL (0.2-1.3); CALCIUM 8.7 mg/dL (8.5-10.1); CARBON DIOXIDE 22.2 mmol/L (21.0-32.0); CHLORIDE - SERUM 109 mmol/L (98-107); CREATININE - SERUM 0.6 mg/dL (0.6-1.3); GLUCOSE 85 mg/dL (74-106); PROTEIN - SERUM 6.9 g/dL (6.4-8.2); SODIUM 144 mmol/L (136-145); eGFR NON AFRICAN AMERICAN > 90 mL/min (90-120)
[2017-12-13 07:24] LABS: ALT (SGPT) 7 U/L (10-68); CALC OSMOLALITY 283 mosm/kg (275-300); POTASSIUM - SERUM 3.1 mmol/L (3.5-5.1); UREA NITROGEN 8 mg/dL (7-18)
[2017-12-13 20:22] VITALS: BP 148/88; BMI 29.2
[2017-12-13] MEDS ORDERED: HUMIRA20 MG/0.4 SQ (21:14)
[2017-12-13] MEDS ORDERED: ATIVAN1 MG PO (21:21)
[2017-12-13 22:24] VITALS: BP 148/84
[2017-12-14 06:01] VITALS: BP 121/74
[2017-12-14 07:13] LABS: ALKALINE PHOSPHATASE 106 U/L (46-116); ALT (SGPT) 7 U/L (10-68); BILIRUBIN - TOTAL 0.24 mg/dL (0.2-1.3); CALC OSMOLALITY 279 mosm/kg (275-300); CALCIUM 8.9 mg/dL (8.5-10.1); CARBON DIOXIDE 24.3 mmol/L (21.0-32.0); CHLORIDE - SERUM 106 mmol/L (98-107); CREATININE - SERUM 0.7 mg/dL (0.6-1.3); GLUCOSE 89 mg/dL (74-106); POTASSIUM - SERUM 3.1 mmol/L (3.5-5.1); PROTEIN - SERUM 6.9 g/dL (6.4-8.2); SODIUM 142 mmol/L (136-145); UREA NITROGEN 7 mg/dL (7-18); eGFR NON AFRICAN AMERICAN 89 mL/min (90-120)
[2017-12-14 07:28] LABS: BASOPHILS 0.1 % (0-2); EOSINOPHILS 1.4 % (0-7); HEMATOCRIT 33.1 % (36.0-48.0); HEMOGLOBIN 9.9 g/dL (12-16); IMMATURE GRANULOCYTES 0.6 % (0-5); LYMPHOCYTES 30.1 % (15-50); MCHC 29.9 g/dL (31.0-37.0); MCV 93.5 fL (80.0-100.0); MEAN PLATELET VOLUME 10.6 fL (7.4-10.4); MONOCYTES 9.5 % (2-11); NEUTROPHILS 58.3 % (40-80); PLATELET COUNT 404 10x3/uL (130-400); RBC 3.54 10x6/uL (4.00-5.40); RDW 15.5 % (11.5-14.5); WBC 8.4 10x3/uL (4.8-10.8)
[2017-12-14 08:24] VITALS: BP 126/55
[2017-12-14 12:02] VITALS: BP 148/52
[2017-12-14 16:29] VITALS: BP 135/69
[2017-12-14 21:54] VITALS: BP 127/58
[2017-12-15 02:37] VITALS: BP 133/60
[2017-12-15 05:01] VITALS: BP 117/69
[2017-12-15 06:34] LABS: BASOPHILS 0 % (0-2); EOSINOPHILS 0 % (0-7); HEMATOCRIT 32.8 % (36.0-48.0); HEMOGLOBIN 10.2 g/dL (12-16); IMMATURE GRANULOCYTES 0.7 % (0-5); MCH 28.5 pg (26.0-34.0); MCHC 31.1 g/dL (31.0-37.0); MCV 91.6 fL (80.0-100.0); MONOCYTES 1.3 % (2-11); PLATELET COUNT 409 10x3/uL (130-400); RBC 3.58 10x6/uL (4.00-5.40); RDW 15.4 % (11.5-14.5)
[2017-12-15 06:44] LABS: APTT 33.9 SECONDS (22.8-39.4); INR 1.15 (0.85-1.17); PROTIME 14.3 SECONDS (11.6-15.0)
[2017-12-15 06:57] LABS: % SATURATION 6 % (15-55); IRON 17 ug/dl (35-150); TOTAL IRON BIND CAPACITY 261 ug/dl (260-445); UNSAT IRON BIND CAPACITY 244 ug/dl (150-375)
[2017-12-15 07:19] LABS: ALBUMIN 1.9 g/dL (3.4-5.0); ALKALINE PHOSPHATASE 98 U/L (46-116); ALT (SGPT) 7 U/L (10-68); BILIRUBIN - TOTAL 0.21 mg/dL (0.2-1.3); CALCIUM 8.9 mg/dL (8.5-10.1); CARBON DIOXIDE 24.4 mmol/L (21.0-32.0); CHLORIDE - SERUM 105 mmol/L (98-107); CREATININE - SERUM 0.7 mg/dL (0.6-1.3); FERRITIN 93 ng/mL (3-244); PROTEIN - SERUM 7.1 g/dL (6.4-8.2); SODIUM 141 mmol/L (136-145); UREA NITROGEN 8 mg/dL (7-18); eGFR NON AFRICAN AMERICAN 89 mL/min (90-120)
[2017-12-15 07:23] LABS: CALC OSMOLALITY 285 mosm/kg (275-300); GLUCOSE 217 mg/dL (74-106); POTASSIUM - SERUM 3.8 mmol/L (3.5-5.1)
[2017-12-15 09:02] VITALS: BP 149/72
[2017-12-15 13:57] VITALS: BP 131/56
[2017-12-15 17:20] VITALS: BP 124/70
[2017-12-15 18:34] LABS: BASOPHILS 0.1 % (0-2); EOSINOPHILS 0.1 % (0-7); HEMATOCRIT 34.5 % (36.0-48.0); HEMOGLOBIN 10.8 g/dL (12-16); IMMATURE GRANULOCYTES 1.4 % (0-5); LYMPHOCYTES 11.4 % (15-50); MCH 28.6 pg (26.0-34.0); MCHC 31.3 g/dL (31.0-37.0); MCV 91.5 fL (80.0-100.0); MEAN PLATELET VOLUME 10.7 fL (7.4-10.4); MONOCYTES 4.7 % (2-11); NEUTROPHILS 82.3 % (40-80); RBC 3.77 10x6/uL (4.00-5.40); RDW 15.3 % (11.5-14.5)
[2017-12-15 18:35] LABS: PLATELET COUNT 503 10x3/uL (130-400); WBC 10.8 10x3/uL (4.8-10.8)
[2017-12-15 18:43] LABS: APTT 28.4 SECONDS (22.8-39.4); INR 1.08 (0.85-1.17); PROTIME 13.6 SECONDS (11.6-15.0)
[2017-12-15 21:15] VITALS: BP 150/84
[2017-12-16 04:08] VITALS: BP 113/67
[2017-12-16 04:44] LABS: BASOPHILS 0 % (0-2); EOSINOPHILS 0 % (0-7); HEMATOCRIT 30.8 % (36.0-48.0); HEMOGLOBIN 9.4 g/dL (12-16); IMMATURE GRANULOCYTES 1.5 % (0-5); LYMPHOCYTES 9.5 % (15-50); MCH 28.1 pg (26.0-34.0); MCHC 30.5 g/dL (31.0-37.0); MCV 92.2 fL (80.0-100.0); MEAN PLATELET VOLUME 10.3 fL (7.4-10.4); MONOCYTES 5.3 % (2-11); NEUTROPHILS 83.7 % (40-80); PLATELET COUNT 434 10x3/uL (130-400); RBC 3.34 10x6/uL (4.00-5.40); RDW 15.3 % (11.5-14.5); WBC 9.4 10x3/uL (4.8-10.8)
[2017-12-16 05:00] LABS: ANION GAP 13.7 mmol/L (8-16); BILIRUBIN - TOTAL 0.1 mg/dL (0.2-1.3); CALCIUM 8.8 mg/dL (8.5-10.1); CARBON DIOXIDE 24.6 mmol/L (21.0-32.0); POTASSIUM - SERUM 3.3 mmol/L (3.5-5.1); PROTEIN - SERUM 6.9 g/dL (6.4-8.2)
[2017-12-16 05:10] LABS: CREATININE - SERUM 0.9 mg/dL (0.6-1.3)
[2017-12-16 09:30] VITALS: BP 104/59
[2017-12-16 13:03] VITALS: BP 117/63
[2017-12-16 15:50] VITALS: Ht 162.6 cm; Wt 85.0 kg
[2017-12-16 16:37] VITALS: BP 116/62
[2017-12-16 21:36] VITALS: BP 106/67
[2017-12-17 01:03] VITALS: BP 119/63
[2017-12-17 04:58] LABS: BASOPHILS 0.1 % (0-2); EOSINOPHILS 0 % (0-7); HEMATOCRIT 30.3 % (36.0-48.0); HEMOGLOBIN 9.2 g/dL (12-16); IMMATURE GRANULOCYTES 0.9 % (0-5); LYMPHOCYTES 8.8 % (15-50); MCH 28.1 pg (26.0-34.0); MCHC 30.4 g/dL (31.0-37.0); MCV 92.7 fL (80.0-100.0); MONOCYTES 2.5 % (2-11); NEUTROPHILS 87.7 % (40-80); PLATELET COUNT 445 10x3/uL (130-400); RBC 3.27 10x6/uL (4.00-5.40); RDW 15.5 % (11.5-14.5); WBC 7.9 10x3/uL (4.8-10.8)
[2017-12-17 05:19] LABS: ANION GAP 15.7 mmol/L (8-16); BILIRUBIN - TOTAL 0.16 mg/dL (0.2-1.3); CALCIUM 8.5 mg/dL (8.5-10.1); CARBON DIOXIDE 23.7 mmol/L (21.0-32.0); POTASSIUM - SERUM 3.4 mmol/L (3.5-5.1); PROTEIN - SERUM 6.6 g/dL (6.4-8.2)
[2017-12-17 05:33] VITALS: BP 135/64
[2017-12-17 09:10] VITALS: BP 105/59
[2017-12-17] MEDS ORDERED: TESSALON PERLE100 MG PO (10:20)
[2017-12-17] MEDS ORDERED: MUCINEX600 MG PO (10:20)
[2017-12-17] MEDS ORDERED: ARAVA10 MG PO (10:22)
[2017-12-17] MEDS ORDERED: LEVAQUIN750 MG PO (10:23)
[2017-12-17 19:08] LABS: ACID FAST SMEAR Negative (()); AFB SPECIMEN PROCESSING Concentration (())
[2017-12-19 14:18] LABS: FUNGUS STAIN Final report (())
[2017-12-22 17:12] LABS: FUNGUS CULTURE RESULT 1 Candida albicans (()); FUNGUS MYCOLOGY CULTURE Preliminary report (()); FUNGUS STAIN RESULT 1 Yeast observed (())
== END 2017-12-17 14:24 | disposition home or self-care (01) | DRG 190 ==
LOC: D.ER 16:11 → D.EDHOLD 23:05 → D.MS 23:05
PROVIDERS: Emergency Medicine; Family Medicine; Internal Medicine Hematology & Oncology; Internal Medicine Pulmonary Disease; Specialist
PROC: 0B938ZZ Drainage of Right Main Bronchus, Via Natural or Artificial Opening Endoscopic (ICD-10-PCS; 2017-12-16)
PROC: 0B978ZZ Drainage of Left Main Bronchus, Via Natural or Artificial Opening Endoscopic (ICD-10-PCS; principal; 2017-12-16 11:00)
DX: J44.1 Chronic obstructive pulmonary disease with (acute) exacerbation (principal); G93.41 Metabolic encephalopathy; F17.203 Nicotine dependence unspecified, with withdrawal; R91.8 Other nonspecific abnormal finding of lung field; M06.9 Rheumatoid arthritis, unspecified; Z79.84 Long term (current) use of oral hypoglycemic drugs; I10 Essential (primary) hypertension; E78.5 Hyperlipidemia, unspecified; F32.9 Major depressive disorder, single episode, unspecified; F41.9 Anxiety disorder, unspecified; E11.65 Type 2 diabetes mellitus with hyperglycemia; D50.9 Iron deficiency anemia, unspecified

== ENCOUNTER 2018-08-21 08:00 | Outpatient (CLI) | payer MEDICARE ==
[2017-12-16 15:50] VITALS: BMI 29.2
[~2018-08-21 08:00] MED LIST changes: +ATIVAN1 MG PO; +HUMIRA20 MG/0.4 SQ; +MUCINEX600 MG PO
== END 2018-08-21 09:00 | disposition home or self-care (01) ==
LOC: D.MAMMO 08:00
DX: Z12.31 Encounter for screening mammogram for malignant neoplasm of breast (principal)

== ENCOUNTER → 2018-12-28 09:00 | Outpatient (CLI) | payer MEDICARE | END | disposition home or self-care (01) | LOC: D.RT 09:00 | DX: J44.9 Chronic obstructive pulmonary disease, unspecified (principal); R93.89 Abnormal findings on diagnostic imaging of other specified body structures ==

== ENCOUNTER → 2019-05-28 08:27 | Outpatient (CLI) | payer MEDICARE ==
[2017-12-16 15:50] VITALS: BMI 29.2
[~2019-05-28 08:27] MED LIST changes: +LOW DOSE ASPIRI81 M1 PO; +MACRODANTIN100 MG PO; +OMNICEF300 MG PO; +PLAVIX75 MG PO; +PREDNISONE10 MG PO; +TRELEGY ELLIPT1 EACH INH; +VALIUM10 MG PO
== END | disposition home or self-care (01) ==
LOC: D.CT 08:27
PROVIDERS: ATTEND Internal Medicine Pulmonary Disease
DX: R93.89 Abnormal findings on diagnostic imaging of other specified body structures (principal)

== ENCOUNTER 2019-05-28 09:30 | Emergency (ER) | payer MEDICARE ==
[~2019-05-28] VITALS: Ht 162.6 cm; Wt 72.7 kg
[~2019-05-28 09:30] MED LIST changes: -LOW DOSE ASPIRI81 M1 PO; -MACRODANTIN100 MG PO; -OMNICEF300 MG PO; -PLAVIX75 MG PO; -PREDNISONE10 MG PO; -TRELEGY ELLIPT1 EACH INH; -VALIUM10 MG PO
[2019-05-28 09:36] VITALS: Ht 162.6 cm; Wt 72.7 kg
[2019-05-28 12:26] VITALS: BP 119/61
== END 2019-05-28 12:26 | disposition home or self-care (01) ==
LOC: D.ER 09:30
DX: M25.571 Pain in right ankle and joints of right foot (principal); M25.551 Pain in right hip; M25.561 Pain in right knee; E11.9 Type 2 diabetes mellitus without complications; W19.XXXA Unspecified fall, initial encounter; M06.9 Rheumatoid arthritis, unspecified

== ENCOUNTER 2019-06-01 15:17 | Emergency (ER) | payer MEDICARE ==
[~2019-06-01] VITALS: Ht 162.6 cm; Wt 76.4 kg
[2019-06-01 15:20] VITALS: Ht 162.6 cm; Wt 76.4 kg
[2019-06-01] MEDS ORDERED: TRELEGY ELLIPT1 EACH INH (15:26)
[2019-06-01 17:58] VITALS: BP 134/74
== END 2019-06-01 18:00 | disposition home or self-care (01) ==
LOC: D.ER 15:17
DX: S00.03XA Contusion of scalp, initial encounter (principal); W19.XXXA Unspecified fall, initial encounter; S16.1XXA Strain of muscle, fascia and tendon at neck level, initial encounter

== ENCOUNTER 2019-06-07 17:12 | Inpatient (IN) | payer MEDICARE ==
[~2019-06-07] VITALS: Ht 162.6 cm; Wt 70.9 kg
--- NOTE | ~2019-06-07 | HEMODYNAMI ---
PATIENT:HEMANTH DUMONT MEDICAL RECORD: [id number] : 54 LOCATION:[facility] D.2122 ADMISSION DATE: 06/07/19 Generatedon:06/08/201915:06 Patient name: HEMANTH DUMONT Patient #: [id number] : 1950 Date of study: 06/08/2019 Page: Of Hemodynamic Procedure Report Patient Data Patient Demographics Procedure consent was obtained First Name: HEMANTH Gender: Female Last Name: TIM : 1950 Middle Initial: BRAD Age: 68 year(s) Patient #: [id number] Race: Unknown SSN: [id number] Additional ID: [id number] Contact details Address: [address] [place] [address] ROAD State: [place] City: [place] Zip code: [address] Admission Admission Data Admission Date: 06/07/2019 Admission Time: 17:12 Arrival Date: 06/08/2019 Arrival Time: 0:00 Admit Source: Other Insurance Payor: Medicare Room #: D.2122 PSYCHIATRIC #: [id number] Height (in.): 64 BSA: 1.77 (m2) Height (cm.): 162.56 BMI: 27 (kg/m2) Weight (lbs.): 157.32 Weight (kg.): 71.36 Lab Results Lab Result Date: 06/08/2019 Lab Result Time: 0:00 Biochemistry Name Units Result Min Max BUN mg/dl 16 --(---*)-- 7 18 Creatinine mg/dl 0.9 --(-*--)-- 0.6 1.3 eGFR ml/min 66 *-(----)-- 90 120 NONAFRICAN CBC Name Units Result Min Max Hemoglobin g/dl 10.4 *-(----)-- 13.5 17.5 Procedure Procedure Types Cath Procedure Diagnostic Procedure LHC LH w/Coronaries Sedation Charges Moderate Sedation up to 15 minutes PCI Procedure Coronary Stent Coronary Stent Initial Procedure Description Procedure Date Procedure Date: 06/08/2019 Procedure Start Time: 14:14 Procedure End Time: 14:30 Procedure Staff Name Function Liz Tee RT Scrub Arash Pérez MD Performing Physician Chelsea Johnson RT Monitor Dora Mcdonnell RN Nurse Indication Chest discomfort Procedure Data Cath Procedure Fluoroscopy Diagnostic fluoroscopy Total fluoroscopy Time: 2.8 time: 2.8 min min Diagnostic fluoroscopy Total fluoroscopy dose: 436 dose: 436 mGy mGy Contrast Material Contrast Material Type Amount (ml) Isovue 300 75 Entry Location Entry Primary Successful Side Size Upsize Upsize Entry Closure Succes sful Closure Location (Fr) 1 (Fr) 2 (Fr) Remarks Device Remarks Femoral Right 5 Fr 6 Fr Exoseal artery Short Estimated blood loss: 10 ml Diagnostic catheters Device Type Used For End Catheter Placement MULTIPACK JL 4.0 5Fr Procedure catheter MULTIPACK 3DRC 5Fr Procedure catheter MULTIPACK Pigtail 5 Fr Ventriculography catheter Procedure Complications No complications Procedure Medications Medication Administration Route Dosage 0.9% NaCl I.V. 100 ml/hr Oxygen etCO2 Nasal cannula 2 l/min Lidocaine 2% added to field 20 Heparin Flush Bag added to field 2 bags (1000units/500ml NS) Versed I.V. 1 mg Fentanyl I.V. 25 mcg Heparin Bolus I.V. 4000 units Integrilin (Bolus I.V. 6.8 ml 2mg/ml) Integrilin (Bolus wasted 3.2 ml 2mg/ml) Plavix P.O. 600 mg Heparin Bolus I.V. 2000 units Hemodynamics Rest BSA: 1.77 (m2) HGB: 10.4 (g/dl) O2 Consumption: Estimated: 182.54 (ml/min) O2 Co nsumption indexed: Estimated:103.13 (ml/min/m) Heart Rate: 96 (bpm) Pressure Samples Time Site Value (mmHg) Purpose Heart Use Rate(bpm) 14:19 LV 135/5,10 Snapshot 97 Gradients Valve Time Site Site Mean SEP/DFP Peak To Heart Use 1 2 (mmHg) (sec/min) Peak Rate (mmHg) (bpm) Aortic 14:19 LV AO 96 Snapshots Pre Cath Intra NCS Post Cath Vital Signs Time Heart Resp SPO2 etCO2 NIBP (mmHg) Rhythm Pain Sedation Rate (ipm) (%) (mmHg) Status Level (bpm) 14:02:55 100 19 99 26.5 120/74(96) NSR 0 (11) 10(A) , No pain 14:07:07 92 15 99 25 123/80(109) NSR 0 (11) 10(A) , No pain 14:11:21 94 19 99 28.8 122/75(104) NSR 0 (11) 10(A) , No pain 14:15:25 98 21 99 28.8 120/79(107) NSR 0 (11) 10(A) , No pain 14:19:39 93 18 99 28.1 133/72(112) NSR 0 (11) 10(A) , No pain 14:23:55 93 20 100 22.7 134/78(116) NSR 0 (11) 10(A) , No pain 14:28:11 93 19 100 30.4 131/77(112) NSR 0 (11) 10(A) , No pain Medications Time Medication Route Dose Verified Delivered Reason Notes Effectiveness by by 13:59:57 0.9% NaCl I.V. 100 Arash John used for ml/hr [place] Sathya procedure MD LOPEZ 14:00:05 Oxygen etCO2 2 Arash Naranjoa used for Nasal l/min [facility] procedure cannula MD LOPEZ 14:00:10 Lidocaine 2% added 20ml Arash Antoine used for to vial [facility] procedure field MD HANNON 14:00:14 Heparin Flush added 2 Arash Gerberory used for Bag to bags [facility] procedure (1000units/500ml field MD HANNON NS) 14:03:20 Versed I.V. 1 mg Arash John for sedation [facility] Mcdonnell MD, RN 14:03:29 Fentanyl I.V. 25 Arash Naranjoa for sedation mcg [facility] Mauri Mcdonnell MD, RN 14:23:53 Heparin Bolus I.V. 4000 Arash Naranjoa for verif ied units [facility] anticoagulation with Dr. MD LOPEZ [place] 14:24:07 Integrilin I.V. 6.8 Arash Dora for (Bolus 2mg/ml) ml [facility] Mauri Mcdonnell antiplatelet MD LOPEZ therapy 14:24:28 Integrilin wasted 3.2 Arash Dora for (Bolus 2mg/ml) ml [facility] Mauri Mcdonnell antiplatelet MD LOPEZ therapy 14:24:34 Plavix P.O. 600 Arash John for mg [facility] Mauri Mcdonnell antiplatelet RN therapy 15:05:51 Heparin Bolus I.V. 2000 Arash John for units [facility] Mauri Mcdonnell anticoagulation [place] Log Time Note 13:38:04 Arrival Date: 06/08/2019 12:00:00 AM 13:38:07 Admit Source: Other 13:38:36 Insurance Payor : Medicare 13:38:43 Patient Height : 64 inches 13:38:47 Patient Weight : 157.32 lbs 13:40:06 Lab Result : eGFR NONAFRICAN 66 ml/min 13:40:06 Lab Result : Hemoglobin 10.4 g/dl 13:40:06 Lab Result : BUN 16 mg/dl 13:40:06 Lab Result : Creatinine 0.9 mg/dl 13:40:14 Diagnostic Cath Status : Urgent 13:40:44 Indication : Chest discomfort 13:41:03 Procedure Status Urgent Heart Cath (IP). 13:41:06 Dora Mcdonnell RN sent for patient. Start room use. 13:41:08 Time tracking: Regular hours (M-F 7:00 - 5:00) 13:41:13 Plan of Care:Hemodynamics will remain stable., Cardiac rhythm will remain stable., Comfort level will be maintained., Respiratory function will remain adequate., Patient/ family verbilizes understanding of procedure., Procedure tolerated without complication., Recovers from procedure without complications.. 13:41:49 Patient received from Med II to CCL 2 Alert and oriented. Tansferred to table in Supine position. 13:42:01 2) 60-89 Mildly reduced kidney function, and other findings (as for stage 1) point to kidney disease. 13:42:22 Maximum allowable contrast dose (3.7 X eGFR X 0.75)183 ml. 13:51:49 Risk of Mortality: .5 13:51:52 Risk of blood transfusion: 10.0 13:51:55 Risk of ASTRID: 2.1 13:59:57 0.9% NaCl 100 ml/hr I.V. was administered by Dora Mcdonnell RN; used for procedure; Verbal order read back and verified. 14:00:05 Oxygen 2 l/min etCO2 Nasal cannula was administered by Dora Mcdonnell RN; used for procedure; Verbal order read back and verified. 14:00:10 Lidocaine 2% 20ml vial added to field was administered by Arash Pérez MD; used for procedure; Verbal order read back and verified. 14:00:14 Heparin Flush Bag (1000units/500ml NS) 2 bags added to field was administered by Arash Pérez MD; used for procedure; Verbal order read back and verified. 14:01:42 Warm blankets applied, and darrius hugger turned on for patient comfort. 14:01:42 Signed procedure consent form obtained from patient. 14:01:43 Correct patient and procedure confirmed by team. 14:01:44 ECG and BP/O2 sat monitors applied to patient. 14:01:47 Vital chart was started 14:01:50 Baseline sample Acquired. 14:01:53 Full Disclosure recording started 14:02:03 H&P Date Dictated: 06/07/2019 Within 30 days and on chart., H&P Addendum completed by physician on day of procedure. (MUST COMPLETE FOR ALL OUTPATIENTS). 14:02:05 Pre-procedure instructions explained to patient. 14:02:06 Family in waiting room. 14:02:08 Patient NPO since Midnight. 14:02:13 Is the patient allergic to Iodine/contrast media? No. 14:02:16 Was the patient premedicated? Yes 14:02:18 Is patient on blood thinner?No 14:02:21 Patient diabetic? Yes. 14:02:23 If diabetic: On Metformin? Yes 14:02:27 Snore? Yes 14:02:28 Sleep apnea? No 14:02:35 Airway obstruction? Yes COPD 14:02:41 Patient pain scale 0/10 ?. 14:02:46 IV patent on arrival in right forearm with 0.9% NaCl at KVO. 14:02:50 If on Metformin: Last Dose? 06/06/2019 14:02:51 Lab results completed and on chart. 14:02:56 --------ALL STOP TIME OUT------ 14:02:56 Physician arrived 14:02:57 Final Timeout: patient, procedure, and site verified with staff and physician. All members of the team are in agreement. 14:03:07 Right groin site verified by team. 14:03:11 Fire Safety Assessment: A--An alcohol-based skin anteseptic being used preoperatively., C--Open oxygen or nitrous oxide is being used., D--An ESU, laser, or fiber-optic light is being used. 14:03:17 Sedation plan: IV Moderate Sedation Medication:Versed, Fentanyl 14:03:20 Versed 1 mg I.V. was administered by Dora Mcdonnell RN; for sedation; Verbal order read back and verified. 14:03:22 Use device set Femoral Dx 14:03:29 Fentanyl 25 mcg I.V. was administered by Dora Mcdonnell RN; for sedation; Verbal order read back and verified. 14:04:28 Bag Decanter (2002S) opened to sterile field. 14:04:28 ACIST Syringe (74142) opened to sterile field. 14:04:29 Medline Cath Pack ([id number]) opened to sterile field. 14:04:30 ACIST Hand Control (02834) opened to sterile field. 14:04:31 ACIST Manifold (33603) opened to sterile field. 14:04:32 DIAGNOSTIC Multipack 5Fr catheter set (FD5551) opened to sterile field. 14:04:38 Tegaderm 4 x 4 (1626W) opened to sterile field. 14:04:39 SHEATH 5FR [place] (OUL611) opened to sterile field. 14:04:41 EMERALD Guide Wire (055-627) opened to sterile field. 14:13:48 Procedure started. 14:14:27 Local anesthetic to right femoral artery with Lidocaine 2% by Arash Pérez MD.INITIAL ACCESS ONLY 14:14:35 A 5 Fr sheath was inserted into the Right Femoral artery 14:15:30 A MULTIPACK JL 4.0 5Fr catheter was advanced over the wire and used for Procedure. 14:16:12 LCA angiography performed. 14:17:20 Catheter removed. 14:17:29 A MULTIPACK 3DRC 5Fr catheter was advanced over the wire and used for Procedure. 14:17:32 RCA angiography performed. 14:18:05 Catheter removed. 14:18:07 Zero performed for pressure channel P1 14:18:41 SHEATH 6FR [place] (OMX888) opened to sterile field. 14:18:42 WHISPER 300cm guide wire ([id number]) opened to sterile field. 14:18:42 GUIDE 5FR EBU 3.5 catheter ([id number]) opened to sterile field. 14:18:43 INFLATOR Merit Hardik (CJ8546) opened to sterile field. 14:18:49 A MULTIPACK Pigtail 5 Fr catheter was advanced over the wire and used for Ventriculography. 14:20:12 EF : 55 % 14:20:13 Catheter removed. 14:20:14 Proceeding to intervention. 14:20:22 Sheath upsized to a 6 Fr Short. 14:20:42 Pre PCI Site: [place] mCirc has 80% stenosis. 14:20:51 6 Fr EBU3.5 guide catheter was inserted over the wire 14:23:39 whisper wire advanced. 14:23:53 Heparin Bolus 4000 units I.V. was administered by Dora Mcdonnell RN; for anticoagulation; verified with Dr. Sanford Verbal order read back and verified. 14:24:07 Integrilin (Bolus 2mg/ml) 6.8 ml I.V. was administered by Dora Mcdonnell RN; for antiplatelet therapy; Verbal order read back and verified. 14:24:28 Integrilin (Bolus 2mg/ml) 3.2 ml wasted was administered by Dora Mcdonnell RN; for antiplatelet therapy; Verbal order read back and verified. 14:24:34 Plavix 600 mg P.O. was administered by Dora Mcdonnell RN; for antiplatelet therapy; Verbal order read back and verified. 14:25:56 Place stent Inflation Number: 1 A INTEGRITY OTW 3.0 X 15 stent ([id number]) was prepped and advanced across the Mid CX 80. The stent was deployed at 14 MARGARETH for 0:10 (min:sec) 0. 14:26:06 EXOSEAL 6Fr (EX600) opened to sterile field. 14:27:00 ACT drawn and resulted at 177 seconds. (normal therapeutic range 180-240 seconds). 14:27:06 ACC Post-intervention LETICIA Flow is 3. 14:27:07 Wire removed. 14:27:08 Guide catheter removed. 14:27:57 Sheath removed intact; hemostasis achieved with Exoseal to the Right Femoral artery. 14:28:00 Procedure ended.(Physican Out) 14:28:11 Fluoroscopy time 02.80 minutes. 14::17 Fluoroscopy dose: 436 mGy 14:: Flurop Dose total: 436 14:: Dose Area Product 22605 mGy/cm. 14:: Contrast amount:Isovue 300 75ml. 14::28 Maximum allowable dose exceeded? No. 14::30 Sharps counted by scrub and verified by R.N. 14::36 Insertion/operative site no bleeding no hematoma. 14:28:41 Post right femoral artery:stable 14::56 Post Procedure Pulses reassessed and unchanged 14:29:03 Post-procedure physical assessment completed. ASA score P 2 - A patient with mild systemic disease as per Arash Pérez MD. 14:29:07 Post procedure rhythm: unchanged. 14:29:10 Estimated blood loss: 10 ml 14:29:11 Post procedure instruction explained to patient.Patient verbalizes understanding. 14:29:24 Procedure type changed to Cath procedure, Diagnostic procedure, LHC, [facility] w/Coronaries, Sedation Charges, Moderate Sedation up to 15 minutes, PCI procedure, Coronary Stent, Coronary Stent Initial 14:: Procedure and supply charges have been captured, reviewed, submitted and are correct. 14::56 Procedure Complication : No complications 14:29:59 Vital chart was stopped 14:30:01 [facility] Findings: MVD- PCI performed (see procedure note) 14:30:07 Operative report dictated upon procedure completion. 14:30:08 See physician's report for complete and final results. 14:30:11 Report given to [facility]. 14:30:14 Patient transfered to [facility] with Stretcher. 14:30:17 Full Disclosure recording stopped 14:30:17 Procedure ended. 14:30:26 ACC-PCI Only Patient was given prescriptions, or instructed by Arash Pérez MD to start/continue the following medications upon discharge: Plavix 14::28 End room use (Document Last) 14:35:32 End room use (Document Last) 14:36:11 FEMSTOP Gold ([id number]) opened to sterile field. 14:40:35 femstop placed for preventative measures bc patient is coughing 15:05:51 Heparin Bolus 2000 units I.V. was administered by Dora Mcdonnell RN; for anticoagulation; Verbal order read back and verified. Intervention Summary Intervention Notes Time ActionType Lesion and Equipment Action# Pressure Duration Attributes Used 14::56 Place stent Mid CX INTEGRITY 1 14 00:10 OTW 3.0 X 15 stent ([id number]) Device Usage Item Name Manufacture Quantity Catalog Hospital Part Current Minimal L ot# / Number Charge Number Stock Stock Serial# Code ACIST Acist 1 23648 679690 080670 765615 20 Syringe Medical (28692) Systems Inc Bag Microtek 1 2001S 317657 36235 945411 5 Decanter Medical Inc. () Medline Medline 1 [id number] 342665 45076 436034 5 Cath Pack ([id number]) ACIST Hand Acist 1 18866 901665 291580 964807 5 Control Medical (90977) Systems Inc ACIST Acist 1 11384 840216 284737 409708 5 Manifold Medical (63411) Systems Inc DIAGNOSTIC Cardinal 1 YV1189 825994 06468 718020 30 HubCast 5Fr catheter set (QE8762) Tegaderm 4 3M 1 1626W 344573 991022 979027 5 x 4 (1626W) SHEATH 5FR Terumo 1 HQG284 342893 549435 675078 5 [place] (AFC665) EMERALD Cardinal 1 502-455 766822 528874 282112 5 Guide Wire AppSocially (502-455) MULTIPACK Cardinal 1 956808 5 JL 4.0 5Fr Health catheter MULTIPACK Cardinal 1 141491 5 3DRC 5Fr AppSocially catheter SHEATH 6FR Terumo 1 RDK345 762234 547425 010247 40 [place] (SND436) GUIDE 5FR Medtronic 1 QC9EXR92 813797 054297 202366 1 EBU 3.5 catheter ([id number]) WHISPER Cowan 1 [id number] 388429 197389 868886 5 300cm guide Vascular wire ([id number]) INFLATOR Merit 1 VB1699 717174 414617 707523 15 Style Blox, Inc. Medical BasixCompak (ZP5631) MULTIPACK Cardinal 1 557184 5 Pigtail 5 Health Fr catheter INTEGRITY Medtronic 1 [id number] 532625 572290 861589 1 0 [id number] OTW 3.0 X 15 stent ([id number]) EXOSEAL 6Fr Cardinal 1 EX600 163485 198948 337820 10 (EX600) Health FEMSTOP St Carl 1 Y03592 514045 760754 592983 5 Gold (F38725) Signature Audit [place] Stage Time Signature Unsigned Intra-Procedure 06/08/2019 Chelsea Johnson 2:34:43 PM RT(R) Intra-Procedure 06/08/2019 Dora Mcdonnell 2:35:32 PM RN Intra-Procedure 06/08/2019 Arash Pastor RN 2:41:25 PM Mauri HANNON 06/08/2019 3:05:28 PM Intra-Procedure 06/08/2019 Dora Mcdonnell 3:06:00 PM RN Intra-Procedure 06/08/2019 Arash Saucedo 3:06:24 PM Mauri HANNON Signatures Performing Physician : Signature : Arash Pérez MD Date : Time : Monitor : Chelsea Johnson Signature : RT Date : Time : Nurse : Dora Mcdonnell RN Signature : Date : Time : [address] [place] [address]
[~2019-06-07 17:12] MED LIST changes: +TRELEGY ELLIPT1 EACH INH
--- NOTE | 2019-06-07 17:36 | NUR ---
TRANSFERED FROM ADMISSIONS BY W/C. OREINTED TO ROOM. CALL LIGHT IN REACH. WILL CONT. PLAN OF CARE.
--- NOTE | 2019-06-07 17:45 | NUR ---
RECIEVED PT TO ROOM. PT ALERT AND CONFUSED. SPEECH GARBBLED. RR EVEN AND UNLABORED. UPON GETTING WT PT STATED SHE FELT THAT SHE WAS ABOUT TO PASS OUT. GOT HER BACK TO BED. TELEMETRY PUT ON PT AT THIS TIME. BED LOCKED AND IN LOWEST POSITION, CALL LIGHT WITHIN REACH. WILL CTM
[2019-06-07 18:03] LABS: BASOPHILS 0.3 % (0-2); EOSINOPHILS 0.7 % (0-7); HEMATOCRIT 39.1 % (36.0-48.0); HEMOGLOBIN 11.6 g/dL (12-16); IMMATURE GRANULOCYTES 1.3 % (0-5); LYMPHOCYTES 34.6 % (15-50); MCH 28.6 pg (26.0-34.0); MCHC 29.7 g/dL (31.0-37.0); MCV 96.3 fL (80.0-100.0); MEAN PLATELET VOLUME 10.6 fL (7.4-10.4); MONOCYTES 10.3 % (2-11); NEUTROPHILS 52.8 % (40-80); PLATELET COUNT 434 10x3/uL (130-400); RBC 4.06 10x6/uL (4.00-5.40); RDW 15.7 % (11.5-14.5); WBC 9.7 10x3/uL (4.8-10.8)
[2019-06-07 18:08] VITALS: BP 101/69; BMI 26.8
[2019-06-07 18:12] LABS: APTT 26.4 SECONDS (22.8-39.4); INR 1.01 (0.85-1.17); PROTIME 12.8 SECONDS (11.6-15.0)
[2019-06-07 18:14] LABS: CALC OSMOLALITY 289 mosm/kg (275-300); CHLORIDE - SERUM 105 mmol/L (98-107); CREATININE - SERUM 1.2 mg/dL (0.6-1.3); GLUCOSE 194 mg/dL (74-106); SODIUM 142 mmol/L (136-145); UREA NITROGEN 18 mg/dL (7-18); eGFR NON AFRICAN AMERICAN 48 mL/min (90-120)
[2019-06-07 18:28] VITALS: BP 101/69
[2019-06-07 18:30] LABS: ALBUMIN 2.1 g/dL (3.4-5.0); ALKALINE PHOSPHATASE 116 U/L (46-116); ALT (SGPT) 13 U/L (10-68); BILIRUBIN - TOTAL 0.28 mg/dL (0.2-1.3); CKMB 1.5 U/L (0.0-3.6); CREATINE KINASE 40 UL (21-215); PROTEIN - SERUM 6.8 g/dL (6.4-8.2); THYROID STIMULATING HORMONE 0.38 uIU/mL (0.36-3.74)
[2019-06-07 18:32] LABS: TROPONIN-I < 0.017 ng/mL (0.000-0.060)
--- NOTE | 2019-06-07 19:09 | NUR ---
RECEIVED CRITICAL LAB RESULTS. PAGED FRANCO SOSA APN.
--- NOTE | 2019-06-07 19:10 | NUR ---
RECEIVED A PHONE CALL FROM ARTIE GONSALEZ WANTING INFORMATION ON PATIENT. PATIENT AGREED THAT IT WAS OK THAT SPEAK WITH HER. MRS. GONSALEZ WOULD LIKE TO CALLED IF THERE ARE ANY CHANGES.
[2019-06-07 19:32] LABS: APPEARANCE CLOUDY (CLEAR); BILIRUBIN NEGATIVE (NEGATIVE); COLOR YELLOW (YELLOW); GLUCOSE NEGATIVE (NEGATIVE); KETONE NEGATIVE (NEGATIVE); NITRITE POSITIVE (NEGATIVE); PROTEIN 2+ mg/dL (NEGATIVE); UROBILINOGEN NORMAL (NORMAL)
[2019-06-07 19:36] LABS: BACTERIA MANY /hpf (NEGATIVE); RED CELLS - URINE NONE SEEN /hpf (0-5); WHITE CELLS - URINE 25-50 /hpf (NEGATIVE)
[2019-06-07 19:39] LABS: UDS - AMPHET NEGATIVE QUAL (NEGATIVE); UDS - BARB NEGATIVE QUAL (NEGATIVE); UDS - BENZO POSITIVE QUAL (NEGATIVE); UDS - COCAINE NEGATIVE QUAL (NEGATIVE); UDS - OPIATE POSITIVE QUAL (NEGATIVE); UDS - PCP NEGATIVE QUAL (NEGATIVE); UDS - THC POSITIVE QUAL (NEGATIVE)
[2019-06-07 20:00] VITALS: BP 136/66
[2019-06-07 23:00] VITALS: BP 124/64
[2019-06-08 02:49] LABS: BASOPHILS 0.3 % (0-2); EOSINOPHILS 0.8 % (0-7); HEMATOCRIT 34.5 % (36.0-48.0); HEMOGLOBIN 10.4 g/dL (12-16); LYMPHOCYTES 43.3 % (15-50); MCH 28.9 pg (26.0-34.0); MCHC 30.1 g/dL (31.0-37.0); MCV 95.8 fL (80.0-100.0); MEAN PLATELET VOLUME 10.5 fL (7.4-10.4); MONOCYTES 11.4 % (2-11); NEUTROPHILS 43.2 % (40-80); PLATELET COUNT 364 10x3/uL (130-400); RDW 15.8 % (11.5-14.5)
[2019-06-08 02:50] LABS: WBC 6.2 10x3/uL (4.8-10.8)
[2019-06-08 02:54] LABS: CALC OSMOLALITY 281 mosm/kg (275-300); CALCIUM 8.7 mg/dL (8.5-10.1); CARBON DIOXIDE 25.5 mmol/L (21.0-32.0); CHLORIDE - SERUM 108 mmol/L (98-107); CREATININE - SERUM 0.9 mg/dL (0.6-1.3); GLUCOSE 103 mg/dL (74-106); POTASSIUM - SERUM 3.2 mmol/L (3.5-5.1); SODIUM 141 mmol/L (136-145); UREA NITROGEN 16 mg/dL (7-18); eGFR NON AFRICAN AMERICAN 66 mL/min (90-120)
[2019-06-08 03:09] LABS: ALBUMIN 1.8 g/dL (3.4-5.0); ALKALINE PHOSPHATASE 99 U/L (46-116); BILIRUBIN - TOTAL 0.15 mg/dL (0.2-1.3); CKMB 1.1 U/L (0.0-3.6); CREATINE KINASE 35 UL (21-215); MAGNESIUM - SERUM 2.6 mg/dL (1.8-2.4); PRO BNP 716 pg/mL (0-125); PROTEIN - SERUM 5.7 g/dL (6.4-8.2)
[2019-06-08 03:10] LABS: ALT (SGPT) 17 U/L (10-68); TROPONIN-I < 0.017 ng/mL (0.000-0.060)
[2019-06-08 04:00] VITALS: BP 109/60; BP 98/62
[2019-06-08 08:33] LABS: CHOL - HDL RATIO 3.8 ratio (2.3-4.1); LDL-HDL RATIO 0.9 ratio (1.5-3.5)
[2019-06-08 13:22] VITALS: Ht 162.6 cm; Wt 70.9 kg
--- NOTE | 2019-06-08 13:51 | CN ---
PATIENT NAME:HEMANTH DUMONT MEDICAL RECORD: [id number] : 54 LOCATION:D. D.2122 ADMIT DATE: 06/07/19 ACCOUNT: [id number] CONSULTING PHYSICIAN: RYAN FRAGA MD REFERRING PHYSICIAN: AL SAXENA MD DATE OF CONSULTATION: 06/08/2019 HISTORY OF PRESENT ILLNESS: A 68-year-old female with no known history of coronary artery disease. She has a history of hypertension, hyperlipidemia, ongoing tobacco use, chronic obstructive pulmonary disease as well as diabetes. She presented to the primary care physician with chest tightness and pressure over the past week or so, described more as a heaviness radiating to the jaw and then to the back. We are asked to see her concerning her cardiovascular status. PAST MEDICAL HISTORY: Includes; 1. History of obstructive pulmonary disease. 2. Hypertension. 3. Hyperlipidemia. 4. Rheumatoid arthritis, on remittive agents. 5. Diabetes mellitus. MEDICATIONS: Include Glucophage 500 mg p.o. b.i.d., Zofran 4 mg p.o. every 6 hours p.r.n., omeprazole 40 mg p.o. daily, Trelegy Ellipta 1 puff every day, potassium 10 mEq at bedtime, Neurontin 100 t.i.d., Cymbalta 60 every day, ramipril 10 every day, amlodipine 10 every day, atorvastatin 40 every day, Lopid 600 mg every day. ALLERGIES: SULFASALAZINE, ALENDRONATE, METHOTREXATE. SOCIAL HISTORY: Smokes less than a pack a day. Nondrinker. No set exercise program. Easily able to take care of all ADLs. REVIEW OF SYSTEMS: The patient reports easy bruising but reports no swollen glands. The patient reports no fever, no night sweats, no significant weight gain, no significant weight loss. No significant exercise tolerance. The patient reports no dry eyes, no irritation, no vision change. Patient reports no difficulty hearing and no ear pain. Patient reports no frequent nose bleeds or nose and sinus problems. Patient reports on arm pain on exertion. No shortness of breath while lying down. No history of heart murmur. Patient reports no cough, no wheezing or coughing up blood. Patient reports no abdominal pain, no vomiting. Normal appetite. No diarrhea and not vomiting blood. No nausea and no constipation. Patient reports no incontinence. No difficulty urinating. No hematuria. No increased frequency. Patient reports no muscle aches. No weakness, no arthralgias, no back pain. No swelling of the extremities. Patient reports no abnormal mole, no jaundice, no rashes. Reports no loss of consciousness. No weakness and no numbness. No seizures, dizziness, or headaches. The patient reports no depression, no sleep disturbance, feeling safe in a relationship and no alcohol abuse. Patient reports on fatigue. Reports no runny nose or sinus pressure. No itching, no hives, and no frequent sneezing. PHYSICAL EXAMINATION: GENERAL: Pleasant female, in no acute distress, appears somewhat older than stated age. VITAL SIGNS: Blood pressure 109/60, pulse 68. CONSULT REPORT [id number] HEMANTH DUMONT BRAD TORRES: Normocephalic, atraumatic. NECK: No bruits are noted. HEART: Regular. Frequent extrasystoles. LUNGS: Slight prolonged expiratory phase. ABDOMEN: Soft, nontender. EXTREMITIES: Pulses 2+. No edema. DIAGNOSTIC DATA: ECG shows nonspecific ST-T changes, PACs, poor R-wave progression. IMPRESSION: Acute coronary syndrome, multiple risk factors. Plan for angiography. Intervention based on the above. TRANSINT:[id number] Voice Confirmation ID: [id number] DOCUMENT ID: [id number] RYAN FRAGA MD at 1351 CC: [id number] DICTATION DATE: 06/08/19 0853 ARRANGING FUNERAL DIRECTOR: 06/08/19 0943 ADM IN [place] [address] [place] [address]
[2019-06-08 13:53] VITALS: BP 128/68
[2019-06-08 18:40] VITALS: BP 133/84
--- NOTE | 2019-06-08 19:26 | NUR ---
RECIEVED BEDSIDE SHIFT REPORT. UP IN BED WITH EYES CLOSED. EASILY AROUSES WITH VERBAL STIMULI. ORIENTED X4. IV TO RIGHT FA SL. DSG TO RIGHT GROIN CDI WITH BRUSING TO AREA. DENIES ANY NEEDS AT THIS TIME.
[2019-06-08 20:00] VITALS: BP 154/82
[2019-06-09] VITALS: BP 138/63
[2019-06-09 04:30] VITALS: BP 132/81
[2019-06-09 05:34] LABS: BASOPHILS 0.3 % (0-2); EOSINOPHILS 1.1 % (0-7); HEMATOCRIT 31.4 % (36.0-48.0); HEMOGLOBIN 9.5 g/dL (12-16); MCH 28.7 pg (26.0-34.0); MCHC 30.3 g/dL (31.0-37.0); MCV 94.9 fL (80.0-100.0); MEAN PLATELET VOLUME 11.1 fL (7.4-10.4); MONOCYTES 12.1 % (2-11); NEUTROPHILS 46.5 % (40-80); PLATELET COUNT 357 10x3/uL (130-400); RBC 3.31 10x6/uL (4.00-5.40); WBC 7.1 10x3/uL (4.8-10.8)
[2019-06-09 05:41] LABS: CALC OSMOLALITY 284 mosm/kg (275-300); CARBON DIOXIDE 23.2 mmol/L (21.0-32.0); CHLORIDE - SERUM 111 mmol/L (98-107); CREATININE - SERUM 0.8 mg/dL (0.6-1.3); GLUCOSE 83 mg/dL (74-106); PHOSPHOROUS 2.8 mg/dL (2.5-4.9); POTASSIUM - SERUM 3.9 mmol/L (3.5-5.1); SODIUM 144 mmol/L (136-145); eGFR NON AFRICAN AMERICAN 76 mL/min (90-120)
[2019-06-09 05:45] LABS: MAGNESIUM - SERUM 1.7 mg/dL (1.8-2.4); UREA NITROGEN 11 mg/dL (7-18)
[2019-06-09 08:06] VITALS: BP 145/79
[2019-06-09] MEDS ORDERED: MACRODANTIN100 MG PO (10:58)
[2019-06-09] MEDS ORDERED: PLAVIX75 MG PO (10:59)
[2019-06-09 11:43] VITALS: BP 137/78
--- NOTE | 2019-06-09 11:55 | NUR ---
FSBS 113
[2019-06-09] MEDS ORDERED: LOW DOSE ASPIRI81 M1 PO (12:08)
--- NOTE | 2019-06-09 13:28 | MORECARE ---
CASE MANAGEMENT DISCHARGE SUMMARY PATIENT: HEMANTH DUMONT UNIT: [id number] ADM DATE: 06/07/19 AGE: 68 : 54 SEX: F ROOM/BED: D.2122 AUTHOR: TALYA BLACK PHYSICIAN: REFERRING PHYSICIAN: AL SAXENA MD DATE OF SERVICE: 06/09/19 Discharge Plan Patient Name: [facility]EMANTH DUMONT [facility] [facility] 1950 Planned Disposition: Home Anticipated Discharge Date: Discharge Date: Expected LOS: Initial Reviewer: [email or web address] Initial Review Date: 06/09/2019 Generated: 06/09/19 2:28 pm DCPIA - Discharge Planning Initial Assessment Updated by [email or web address]: Terra Ernandez on 06/09/19 1:28 pm * Is the patient Alert and Oriented? Yes * PCP HEMANTH * Pharmacy [facility] * Preadmission Environment Home with Family * ADLs Independent * Other Equipment WALKER AND BSC * List name and contact numbers for known caregivers / representatives who currently or will assist patient after discharge: GINO SMITH, * Please name any agencies selected above. STATES GINO SMITH IS CAREGIVER * Additional services required to return to the preadmission environment? No * Can the patient safely return to the preadmission environment? Yes * Has this patient been hospitalized within the prior 30 days at any hospital? No Patient Name: HEMANTH DUMONT Page 37867 at 1328 All edits/amendments must be made on the electronic document DICTATION DATE: 06/09/191327 EVP [employer] LEADERSHIP: JERSON 06/09/19 1328 RPT#: [id number] DC DATE: STATUS: ADM IN [facility] [address] [place] [address] END OF REPORT
--- NOTE | 2019-06-09 13:35 | MORECARE ---
CASE MANAGEMENT DISCHARGE SUMMARY PATIENT: HEMANTH DUMONT UNIT: [id number] ADM DATE: 06/07/19 AGE: 68 : 54 SEX: F ROOM/BED: D.7170 AUTHOR: SOFIADOC PHYSICIAN: REFERRING PHYSICIAN: AL SAXENA MD DATE OF SERVICE: 06/09/19 Discharge Plan Patient Name: HEMANTH DUMONT [facility] [facility] 1950 Planned Disposition: Home Anticipated Discharge Date: Discharge Date: Expected LOS: Initial Reviewer: [email or web address] Initial Review Date: 06/09/2019 Generated: 06/09/19 2:35 pm Comments DCP- Discharge Planning Updated by [email or web address]: Terra Ernandez on 06/09/19 12:[address] Patient Name: HEMANTH DUMONT Admission Status: Urgent Accout number: [id number] Admission Date: 06-07-2019 : 1950 Admission Diagnosis: Attending: AL SAXENA Current LOS: 2 Anticipated DC Date: Planned Disposition: Home Primary Insurance: MEDICARE A & B Discharge Planning Comments: CM MET WITH PATIENT AFTER OBTAINING VERBAL CONSENT. I SPOKE WITH PATIENT AND HER DAUGHTER LUIS. LUIS WILL DRIVE HER HOME AT DISCHARGE. I AM GIVING HER INFORMATION ON DME COMPANIES, SHE WANTS TO SEE IF HER INS WILL COVER A HOSPITAL BED. HER DAUGHTER LIVES WITH HER AND HELPS CARE FOR HER. STATES NO HH, REHAB OR OTHER EQUP NEEDED. CM TO FOLLOW. Pilot: Terra Ernandez DCPIA - Discharge Planning Initial Assessment Updated by [email or web address]: Terra Ernandez on 06/09/19 1:28 pm * Is the patient Alert and Oriented? Yes * PCP HEMANTH * Pharmacy [facility] * Preadmission Environment Home with Family * ADLs Independent * Other Equipment WALKER AND BSC * List name and contact numbers for known caregivers / representatives who currently or will assist patient after discharge: LUIS, DAUGHTER, * Please name any agencies selected above. STATES DAUGHTER LUIS IS CAREGIVER * Additional services required to return to the preadmission environment? No * Can the patient safely return to the preadmission environment? Yes * Has this patient been hospitalized within the prior 30 days at any hospital? No Last DP export: 06/09/19 12:29 p Patient Name: HEMANTH DUMONT Page 89977 at 1335 All edits/amendments must be made on the electronic document DICTATION DATE: 06/09/191334 SECURITY GUARDS DISPATCHER: JERSON 06/09/191334 RPT#: [id number] DC DATE: STATUS: ADM IN [facility] [address] [place] [address] END OF REPORT
--- NOTE | 2019-06-09 13:52 | NUR ---
REVIEWED THE DISCHARGE INSTRUCTIONS WITH PT AND DAUGHTER BOTH STATES UNDERSTANDING COPY GIVEN SALINE LOCK SITE FREE OF REDNESS OR EDEMA PT DISCHARGED HOME LEFT UNIT VIA W/C IN STABLE CONDITION WITH ALL PERSONAL BELONGINGS
--- NOTE | 2019-06-09 15:51 | MORECARE ---
CASE MANAGEMENT DISCHARGE SUMMARY PATIENT: HEMANTH DUMONT UNIT: [id number] ADM DATE: 06/07/19 AGE: 68 : 52 SEX: F ROOM/BED: D.7200 AUTHOR: SOFIA,DOC PHYSICIAN: REFERRING PHYSICIAN: AL SAXENA MD DATE OF SERVICE: 06/09/19 Discharge Plan Patient Name: HEMANTH DUMONT [facility] [facility] 1950 Planned Disposition: Home Anticipated Discharge Date: Discharge Date: 06/09/2019 Expected LOS: Initial Reviewer: [email or web address] Initial Review Date: 06/09/2019 Generated: 06/09/19 4:51 pm Comments DCP- Discharge Planning Updated by [email or web address]: Terragrayson Ernandez on 06/09/19 12:[address] Patient Name: HEMANTH DUMONT Admission Status: Urgent Accout number: [id number] Admission Date: 06-07-2019 : 1950 Admission Diagnosis: Attending: AL SAXENA Current LOS: 2 Anticipated DC Date: Planned Disposition: Home Primary Insurance: MEDICARE A & B Discharge Planning Comments: CM MET WITH PATIENT AFTER OBTAINING VERBAL CONSENT. I SPOKE WITH PATIENT AND HER DAUGHTER LUIS. LUIS WILL DRIVE HER HOME AT DISCHARGE. I AM GIVING HER INFORMATION ON DME COMPANIES, SHE WANTS TO SEE IF HER INS WILL COVER A HOSPITAL BED. HER DAUGHTER LIVES WITH HER AND HELPS CARE FOR HER. STATES NO HH, REHAB OR OTHER EQUP NEEDED. CM TO FOLLOW. Long Wall Mining Machine Helper: Terra Ernandez DCPIA - Discharge Planning Initial Assessment Updated by [email or web address]: Terra Ernandez on 06/09/19 1:28 pm * Is the patient Alert and Oriented? Yes * PCP HEMANTH * Pharmacy [facility] * Preadmission Environment Home with Family * ADLs Independent * Other Equipment WALKER AND BSC * List name and contact numbers for known caregivers / representatives who currently or will assist patient after discharge: LUIS DAUGHTER, * Please name any agencies selected above. STATES GINO SMITH IS CAREGIVER * Additional services required to return to the preadmission environment? No * Can the patient safely return to the preadmission environment? Yes * Has this patient been hospitalized within the prior 30 days at any hospital? No Last DP export: 06/09/19 12:35 p Patient Name: HEMANTH DUMONT Page 63354 at 1551 All edits/amendments must be made on the electronic document DICTATION DATE: 06/09/19 155 MOTION PICTURE PROJECTIONIST APPRENTICE: JERSON 06/09/191550 RPT#: [id number] DC DATE:06/09/19 STATUS: DIS IN [facility] [address] [place] [address] END OF REPORT
--- NOTE | 2019-06-11 14:23 | OP ---
PATIENT NAME: HEMANTH DUMONT MEDICAL RECORD: [id number] :54 LOCATION:D.M2 D.2 ADMISSION DATE:06/07/19 SURGEON: RYAN FRAGA MD DATE OF OPERATION: 06/08/2019 PROCEDURE: Left heart catheterization, selective coronary angiography, right femoral artery approach. CATHETERS: A 5-Haitian sheath, 5/4 left and right Tiffany, 5/4 pig. The procedure was well tolerated. The patient was returned to [place]. Sheath was removed. ExoSeal device placed. FINDINGS: Left ventriculography in 30-degree FOWLER view: Normal wall motion and normal systolic function. CORONARY ANATOMY: LEFT MAIN: Left main is free of disease. LAD: Free of disease in the diagonal system. CIRCUMFLEX: Has to 80% to 90% stenosis in mid portion fairly discrete. RIGHT CORONARY ARTERY: Dominant artery, gives rise to PDA, free of disease. IMPRESSION: Plan intervention of the OM momentarily. DESCRIPTION OF PROCEDURE: A 5-Haitian sheath was exchanged for a 6-Haitian sheath. EBU 3.5 guide catheter provided good guide catheter support followed by a 300 cm Whisper wire. Stent deployed was a 3.0 x 14 mm Integrity nondrug-eluting stent up to 14 atmospheres. Final angiography shows excellent resolution of 80% to 90% stenosis, no significant residual. LETICIA flow was 3 throughout the procedure. Heparin was used and Integrilin as well as. Plavix was loaded in the lab. Sheath closed with ExoSeal device. TRANSINT:[id number] Voice Confirmation ID: [id number] DOCUMENT ID: [id number] RYAN FRAGA MD at 1423 CC: [id number] DICTATION DATE: 06/08/19 1438 PAPER COLORER: 06/08/192101 DIS IN 06/09/19 [facility] [address] [facility] [place] [address]
== END 2019-06-09 13:52 | disposition home or self-care (01) | DRG 249 ==
LOC: D.M2 17:12
PROVIDERS: Internal Medicine Interventional Cardiology; Internal Medicine Nephrology; ADMIT Family Medicine; ATTEND Family Medicine
PROC: B2111ZZ Fluoroscopy of Multiple Coronary Arteries using Low Osmolar Contrast (ICD-10-PCS; 2019-06-08)
PROC: B2151ZZ Fluoroscopy of Left Heart using Low Osmolar Contrast (ICD-10-PCS; 2019-06-08)
PROC: 02703DZ Dilation of Coronary Artery, One Artery with Intraluminal Device, Percutaneous Approach (ICD-10-PCS; principal; 2019-06-08 13:40)
PROC: 4A023N7 Measurement of Cardiac Sampling and Pressure, Left Heart, Percutaneous Approach (ICD-10-PCS; 2019-06-08 13:40)
DX: I24.9 Acute ischemic heart disease, unspecified (principal); N39.0 Urinary tract infection, site not specified; F17.213 Nicotine dependence, cigarettes, with withdrawal; E87.6 Hypokalemia; E83.42 Hypomagnesemia; I10 Essential (primary) hypertension; E78.5 Hyperlipidemia, unspecified; D50.9 Iron deficiency anemia, unspecified; E11.9 Type 2 diabetes mellitus without complications; J44.9 Chronic obstructive pulmonary disease, unspecified; K21.9 Gastro-esophageal reflux disease without esophagitis; M06.9 Rheumatoid arthritis, unspecified; F41.8 Other specified anxiety disorders; I25.10 Atherosclerotic heart disease of native coronary artery without angina pectoris; R55 Syncope and collapse; R00.0 Tachycardia, unspecified

== ENCOUNTER 2019-06-20 13:44 | Inpatient (IN) | payer MEDICARE ==
[~2019-06-20] VITALS: Ht 162.6 cm; Wt 68.2 kg
[~2019-06-20 13:44] MED LIST changes: +LOW DOSE ASPIRI81 M1 PO; +MACRODANTIN100 MG PO; +PLAVIX75 MG PO
[2019-06-20 14:35] LABS: BASOPHILS 0.4 % (0-2); EOSINOPHILS 1.6 % (0-7); HEMATOCRIT 35.9 % (36.0-48.0); HEMOGLOBIN 10.7 g/dL (12-16); IMMATURE GRANULOCYTES 0.7 % (0-5); LYMPHOCYTES 32.1 % (15-50); MCH 29.1 pg (26.0-34.0); MCHC 29.8 g/dL (31.0-37.0); MCV 97.6 fL (80.0-100.0); MEAN PLATELET VOLUME 11.2 fL (7.4-10.4); MONOCYTES 9.8 % (2-11); NEUTROPHILS 55.4 % (40-80); RBC 3.68 10x6/uL (4.00-5.40); RDW 15.8 % (11.5-14.5); WBC 10.2 10x3/uL (4.8-10.8)
[2019-06-20 14:36] LABS: PLATELET COUNT 440 10x3/uL (130-400)
[2019-06-20 14:39] LABS: APTT 22.7 SECONDS (22.8-39.4)
[2019-06-20 14:40] LABS: INR 1.01 (0.85-1.17); PROTIME 12.8 SECONDS (11.6-15.0)
[2019-06-20 14:56] LABS: CALC OSMOLALITY 274 mosm/kg (275-300); CALCIUM 9.1 mg/dL (8.5-10.1); CARBON DIOXIDE 23.2 mmol/L (21.0-32.0); CHLORIDE - SERUM 102 mmol/L (98-107); GLUCOSE 106 mg/dL (74-106); POTASSIUM - SERUM 3.9 mmol/L (3.5-5.1); SODIUM 137 mmol/L (136-145); UREA NITROGEN 14 mg/dL (7-18); eGFR NON AFRICAN AMERICAN 59 mL/min (90-120)
[2019-06-20 15:12] LABS: ALKALINE PHOSPHATASE 102 U/L (46-116); ALT (SGPT) 9 U/L (10-68); BILIRUBIN - TOTAL 0.25 mg/dL (0.2-1.3); CREATINE KINASE 22 UL (21-215); PROTEIN - SERUM 6.1 g/dL (6.4-8.2); TROPONIN-I < 0.017 ng/mL (0.000-0.060)
[2019-06-20 15:18] LABS: APPEARANCE CLEAR (CLEAR); BILIRUBIN NEGATIVE (NEGATIVE); COLOR YELLOW (YELLOW); GLUCOSE NEGATIVE (NEGATIVE); KETONE NEGATIVE (NEGATIVE); NITRITE NEGATIVE (NEGATIVE); PROTEIN NEGATIVE (NEGATIVE); UROBILINOGEN NORMAL (NORMAL)
[2019-06-20 16:03] VITALS: BP 124/63
[2019-06-20 16:43] VITALS: BP 124/63
--- NOTE | 2019-06-20 17:01 | NUR ---
2000 MLS OF LR INFUSED. PT WENT TO THE FLOOR WITH 500 MLS OF LR LEFT TO INFUSE AND STILL INFUSING.
[2019-06-20 17:49] VITALS: BP 145/58; BMI 25.9
[2019-06-20 18:11] LABS: CKMB 1.2 U/L (0.0-3.6); CREATINE KINASE 25 UL (21-215); TROPONIN-I 0.018 ng/mL (0.000-0.060)
--- NOTE | 2019-06-20 18:36 | NUR ---
PATIENT ASSESSMENT COMPLETE. SHE IS REQUESTING FOOD. GIVING HER SOME MILK AND CRACKERS. DIETARY IS CLOSED, SO I COULD NOT GET A FOOD ORDER IN. WILL FIND A SANDWICH.
[2019-06-20 20:00] VITALS: BP 139/64
[2019-06-20 23:32] LABS: CKMB 1.2 U/L (0.0-3.6); CREATINE KINASE 23 UL (21-215)
[2019-06-20 23:33] LABS: TROPONIN-I < 0.017 ng/mL (0.000-0.060)
[2019-06-21 00:25] LABS: UDS - AMPHET NEGATIVE QUAL (NEGATIVE); UDS - BARB NEGATIVE QUAL (NEGATIVE); UDS - BENZO POSITIVE QUAL (NEGATIVE); UDS - COCAINE NEGATIVE QUAL (NEGATIVE); UDS - OPIATE POSITIVE QUAL (NEGATIVE); UDS - PCP NEGATIVE QUAL (NEGATIVE); UDS - THC NEGATIVE QUAL (NEGATIVE)
[2019-06-21 04:00] VITALS: BP 140/86
[2019-06-21 05:47] LABS: BASOPHILS 0 % (0-2); EOSINOPHILS 0 % (0-7); HEMOGLOBIN 9.5 g/dL (12-16); IMMATURE GRANULOCYTES 0.7 % (0-5); LYMPHOCYTES 17.1 % (15-50); MCH 28.5 pg (26.0-34.0); MCHC 29.7 g/dL (31.0-37.0); MCV 96.1 fL (80.0-100.0); MEAN PLATELET VOLUME 11.1 fL (7.4-10.4); MONOCYTES 1.3 % (2-11); NEUTROPHILS 80.9 % (40-80); PLATELET COUNT 373 10x3/uL (130-400); RBC 3.33 10x6/uL (4.00-5.40); RDW 15.9 % (11.5-14.5)
[2019-06-21 06:00] LABS: WBC 5.4 10x3/uL (4.8-10.8)
[2019-06-21 06:24] LABS: ALBUMIN 1.6 g/dL (3.4-5.0); ALKALINE PHOSPHATASE 73 U/L (46-116); ALT (SGPT) 7 U/L (10-68); BILIRUBIN - TOTAL 0.23 mg/dL (0.2-1.3); CALCIUM 8.4 mg/dL (8.5-10.1); CARBON DIOXIDE 22.8 mmol/L (21.0-32.0); CHLORIDE - SERUM 108 mmol/L (98-107); CKMB 0.7 U/L (0.0-3.6); CREATINE KINASE 14 UL (21-215); CREATININE - SERUM 0.8 mg/dL (0.6-1.3); MAGNESIUM - SERUM 1.3 mg/dL (1.8-2.4); POTASSIUM - SERUM 4.2 mmol/L (3.5-5.1); PROTEIN - SERUM 5.3 g/dL (6.4-8.2); SODIUM 143 mmol/L (136-145); TROPONIN-I < 0.017 ng/mL (0.000-0.060); eGFR NON AFRICAN AMERICAN 76 mL/min (90-120)
[2019-06-21 06:25] LABS: CALC OSMOLALITY 287 mosm/kg (275-300); GLUCOSE 173 mg/dL (74-106); UREA NITROGEN 10 mg/dL (7-18)
--- NOTE | 2019-06-21 07:47 | NUR ---
A/A/OX4. STATES SHE HAS RECEIVED SOME RELIEF FROM THE TYLENOL GIVEN EARLIER AND IS RESTING EASIER. NO REQUESTS VOICED. TRIPLE LUMEN CVL IN PLACE TO RIGHT IJ WITH DRESSING C/D/I. NAJERA PATENT AND DRAINING LIGHT YELLOW URINE TO BEDSIDE DRAINAGE, REFUSES STAT LOCK. 02 ON PER N/C AT 3 L/M WITHOUT ANY SOB OR RESP DISTRESS NOTED. ASSESSMENT COMPLETED AND WILL CONTINUE POC.
[2019-06-21 08:00] VITALS: BP 146/72
[2019-06-21 12:00] VITALS: BP 137/74
[2019-06-21 13:50] VITALS: Ht 162.6 cm; Wt 68.2 kg
--- NOTE | 2019-06-21 17:06 | MORECARE ---
CASE MANAGEMENT DISCHARGE SUMMARY PATIENT: HEMANTH SHAH UNIT: [id number] ADM DATE: 06/20/19 AGE: 68 : 52 SEX: F ROOM/BED: D.2659 AUTHOR: SOFIADOC PHYSICIAN: REFERRING PHYSICIAN: LUIS CASTELLANO MD DATE OF SERVICE: 06/21/19 Discharge Plan Patient Name: HEMANTH SHAH Facility[facility]:[place] : 1950 Planned Disposition: Home Anticipated Discharge Date: Discharge Date: Expected LOS: Initial Reviewer: [email or web address] Initial Review Date: 06/21/2019 Generated: 06/21/19 6:06 pm DCP- Discharge Planning Updated by [email or web address]: Brandi Salazar on 06/20/19 2:[address] CM met with patient to discuss dc plans/needs.. Patient is alert/oriented, gives permission to complete CM assessment. Stairs/steps: 6 w/partial rail. Patient lives with her daughter, Roxana Blackmon (unknown #). PCP: Dr. Saxena. Pharmacy: [facility]. HHS: None. DME: ROXANA Bain, states family is trying to obtain a hospital bed. Emergency contact: Buzz Shah (son) [phone]. ADL's: Dependent with bathing, walking, toileting, meal preparation. Denies additional services at this time and feels safe returning to previous environment. CM offered HHS, Rehab prior to returning home. Patient was hospitalized within the past 30 days. Denies use of community resources STEREOTYPE FINISHER. Transportation at time of discharge: Buzz Shah (son) [phone] or Dora Pablo (dtr-in-law) [phone]. CM will follow and assist PRN. DCPIA - Discharge Planning Initial Assessment Updated by [email or web address]: Mauro Cunningham on 06/21/19 5:03 pm * Is the patient Alert and Oriented? Yes * How many steps to enter\exit or inside your home? * PCP DR. SAXENA * Pharmacy [facility] [place] * Preadmission Environment Home with Family * ADLs Independent * Equipment Bedside Commode Walker * Other Equipment NO MEDICAL EQUIPMENT PROVIDER PREFERENCE * List name and contact numbers for known caregivers / representatives who currently or will assist patient after discharge: ANTONIO CAPPS, DTR, BUZZ SHAH, SON, * Verbal permission to speak to the caregivers and representatives has been obtained from the patient. N/A * Community resources currently utilized None * Please name any agencies selected above. NONE * Additional services required to return to the preadmission environment? No * Can the patient safely return to the preadmission environment? Yes * Has this patient been hospitalized within the prior 30 days at any hospital? Yes Patient Name: HEMANTH SHAH Page 59986 at 1706 All edits/amendments must be made on the electronic document DICTATION DATE: 06/21/191704 BIODIESEL ENGINE SPECIALIST: JERSON 06/21/191704 RPT#: [id number] DC DATE: STATUS: ADM IN [facility] [address] [place] [address] END OF REPORT
--- NOTE | 2019-06-21 17:14 | MORECARE ---
CASE MANAGEMENT DISCHARGE SUMMARY PATIENT: HEMANTH SHAH UNIT: [id number] ADM DATE: 06/20/19 AGE: 68 : 52 SEX: F ROOM/BED: D.4752 AUTHOR: TALYA BLACK PHYSICIAN: REFERRING PHYSICIAN: LUIS CASTELLANO MD DATE OF SERVICE: 06/21/19 Discharge Plan Patient Name: HEMANTH SHAH Facility: [facility]:[place] : 1950 Planned Disposition: Home Anticipated Discharge Date: Discharge Date: Expected LOS: Initial Reviewer: [email or web address] Initial Review Date: 06/21/2019 Generated: 06/21/19 6:14 pm Comments DCP- Discharge Planning Updated by [email or web address]: Mauro Cunningham on 06/21/19 4:[address] Patient Name: HEMANTH SHAH Admission Status: ER Accout number: [id number] Admission Date: 06-20-2019 : 1950 Admission Diagnosis: Attending: LUIS WILLS Current LOS: 1 Anticipated DC Date: Planned Disposition: Home Primary Insurance: MEDICARE A & B Discharge Planning Comments: CM MET WITH PT IN ROOM TO DISCUSS DISCHARGE PLANNING AND NEEDS. PT REPORTS LIVING AT HOME INDEPENDENTLY WITH FAMILY. PT HAS BEDSIDE COMMODE AND WALKER WITH NO MEDICAL EQUIPMENT PROVIDER PREFERNCE. PT REPORTS DR. SAXENA IS IN THE PROCESS OF GETTING HER A HOSPITAL BED FOR HOME USE. PT HAS NO OUTSIDE SERVICES ASSISTING IN THE HOME. CM DISCUSSED AVAILABILITY OF HOME HEALTH, REHAB SERVICES AND MEDICAL EQUIPMENT. PT DENIES DISCHARGE NEEDS, REPORTS HER DAUGHTER WILL PICK HER UP FOR DISCHARGE HOME. PATIENT PLANS TO DISCHARGE HOME WITH FAMILY, DAUGHTER TO TRANSPORT HOME AT DISCHARGE. PT HAS NO ANTICIPATE DISCHARGE NEEDS. CM TO FOLLOW AND ASSIST IF NEEDED. Destination Sign Repairer: Mauro Cunningham DCP- Discharge Planning Updated by [email or web address]: Brandi Salazar on 06/20/19 2:[address] CM met with patient to discuss dc plans/needs.. Patient is alert/oriented, gives permission to complete CM assessment. Stairs/steps: 6 w/partial rail. Patient lives with her daughter, Roxana Blackmon (unknown #). PCP: Dr. Saxena. Pharmacy: [facility]. HHS: None. DME: ROXANA Bain, states family is trying to obtain a hospital bed. Emergency contact: Buzz Shah (son) [phone]. ADL's: Dependent with bathing, walking, toileting, meal preparation. Denies additional services at this time and feels safe returning to previous environment. CM offered HHS, Rehab prior to returning home. Patient was hospitalized within the past 30 days. Denies use of community resources COMPUTER NETWORKER. Transportation at time of discharge: Buzz Shah (son) [phone] or Dora Pablo (dtr-in-law) [phone]. CM will follow and assist PRN. DCPIA - Discharge Planning Initial Assessment Updated by [id number]: Mauro Cunningham on 06/21/19 5:03 pm * Is the patient Alert and Oriented? Yes * How many steps to enter\exit or inside your home? * PCP DR. SAXENA * Pharmacy [facility] * Preadmission Environment Home with Family * ADLs Independent * Equipment Bedside Commode Walker * Other Equipment NO MEDICAL EQUIPMENT PROVIDER PREFERENCE * List name and contact numbers for known caregivers / representatives who currently or will assist patient after discharge: ANTONIO CAPPS, DTR, BUZZ SHAH, SON, * Verbal permission to speak to the caregivers and representatives has been obtained from the patient. N/A * Community resources currently utilized None * Please name any agencies selected above. NONE * Additional services required to return to the preadmission environment? No * Can the patient safely return to the preadmission environment? Yes * Has this patient been hospitalized within the prior 30 days at any hospital? Yes Last DP export: 06/21/19 4:06 Patient Name: HEMANTH SHAH Page [id number] at 5084 All edits/amendments must be made on the electronic document DICTATION DATE: 06/21/191713 TRAVEL GUIDE: JERSON 06/21/191713 RPT#: [id number] DC DATE: STATUS: ADM IN [facility] [address] [place] [address] END OF REPORT
--- NOTE | 2019-06-21 17:30 | NUR ---
I have reviewed this patient and I concur with the Shift Assessment completed by the Licensed Practical Nurse today this shift.
--- NOTE | 2019-06-21 19:00 | NUR ---
EVENING ROUNDS COMPLETE. PT LAYING IN BED. NO SIGNS OF DISTRESS. AAOX4. PT DENIES ANY PAIN OR NEEDS AT THIS TIME. CL IN REACH, BED IN LOWEST POSITION.
[2019-06-21 20:00] VITALS: BP 126/58
[2019-06-22] VITALS (7 sets, daily range): BP systolic 110–158; BP diastolic 45–76
[2019-06-22 07:06] LABS: ALBUMIN 1.9 g/dL (3.4-5.0); BILIRUBIN - TOTAL 0.18 mg/dL (0.2-1.3); CALCIUM 8.5 mg/dL (8.5-10.1); CARBON DIOXIDE 24.6 mmol/L (21.0-32.0); CREATININE - SERUM 0.9 mg/dL (0.6-1.3); PHOSPHOROUS 3.6 mg/dL (2.5-4.9); POTASSIUM - SERUM 3.6 mmol/L (3.5-5.1); PROTEIN - SERUM 5.4 g/dL (6.4-8.2)
[2019-06-22 07:12] LABS: MAGNESIUM - SERUM 1.7 mg/dL (1.8-2.4)
[2019-06-22 07:23] LABS: HEMATOCRIT 30.4 % (36.0-48.0); HEMOGLOBIN 9.4 g/dL (12-16); LYMPHOCYTES 15.3 % (15-50); MCH 29.7 pg (26.0-34.0); MCHC 30.9 g/dL (31.0-37.0); MCV 95.9 fL (80.0-100.0); MEAN PLATELET VOLUME 11.6 fL (7.4-10.4); NEUTROPHILS 81.6 % (40-80); PLATELET COUNT 320 10x3/uL (130-400); RBC 3.17 10x6/uL (4.00-5.40); RDW 16.1 % (11.5-14.5)
[2019-06-22 07:24] LABS: WBC 7.3 10x3/uL (4.8-10.8)
--- NOTE | 2019-06-22 08:25 | NUR ---
ASSESSMENT DONE. DENIES NEEDS
[2019-06-22] MEDS ORDERED: VALIUM10 MG PO (10:29)
--- NOTE | 2019-06-22 17:45 | NUR ---
I have reviewed this patient and I concur with the Shift Assessment completed by the Licensed Practical Nurse today this shift.
--- NOTE | 2019-06-22 21:14 | NUR ---
PT ALERT AND ORIENTED X4. RR EVEN AND UNLABORED. ASSISTED PT TO BATHEROOM. NO S/S OF DISTRESS. VITALS STABLE. BED LOW CALLL LIGHT WITHIN REACH. WILL CONTINUE TO MONITOR.
--- NOTE | 2019-06-23 00:54 | NUR ---
PT RESTING IN BED WITH EYES CLOSED. RR EVEN AND UNLABORED. NO S/S OF DISTRESS. BED LOW CALL LIGHT WITHIN REACH. WILL CONTINUE TO MONITOR.
--- NOTE | 2019-06-23 04:03 | NUR ---
I have reviewed this patient and I concur with the Shift Assessment completed by the Licensed Practical Nurse today this shift.
[2019-06-23 04:30] VITALS: BP 118/60
[2019-06-23 06:02] LABS: BASOPHILS 0 % (0-2); EOSINOPHILS 0.1 % (0-7); HEMATOCRIT 28.2 % (36.0-48.0); HEMOGLOBIN 8.3 g/dL (12-16); IMMATURE GRANULOCYTES 0.6 % (0-5); LYMPHOCYTES 19.1 % (15-50); MCH 28.7 pg (26.0-34.0); MCHC 29.4 g/dL (31.0-37.0); MCV 97.6 fL (80.0-100.0); MEAN PLATELET VOLUME 11.1 fL (7.4-10.4); NEUTROPHILS 72.2 % (40-80); PLATELET COUNT 346 10x3/uL (130-400); RBC 2.89 10x6/uL (4.00-5.40); RDW 16.5 % (11.5-14.5); WBC 8.1 10x3/uL (4.8-10.8)
[2019-06-23 06:15] LABS: ALBUMIN 1.9 g/dL (3.4-5.0); ALKALINE PHOSPHATASE 58 U/L (46-116); ALT (SGPT) 10 U/L (10-68); BILIRUBIN - TOTAL 0.17 mg/dL (0.2-1.3); CALC OSMOLALITY 292 mosm/kg (275-300); CALCIUM 8.1 mg/dL (8.5-10.1); CARBON DIOXIDE 27.6 mmol/L (21.0-32.0); CHLORIDE - SERUM 111 mmol/L (98-107); CREATININE - SERUM 0.8 mg/dL (0.6-1.3); GLUCOSE 115 mg/dL (74-106); MAGNESIUM - SERUM 2.4 mg/dL (1.8-2.4); PHOSPHOROUS 2.7 mg/dL (2.5-4.9); POTASSIUM - SERUM 3.7 mmol/L (3.5-5.1); PROTEIN - SERUM 5.3 g/dL (6.4-8.2); SODIUM 146 mmol/L (136-145); UREA NITROGEN 15 mg/dL (7-18); eGFR NON AFRICAN AMERICAN 76 mL/min (90-120)
[2019-06-23 07:53] VITALS: BP 143/70
[2019-06-23 11:27] VITALS: BP 153/78
[2019-06-23 15:44] VITALS: BP 164/72
[2019-06-23] MEDS ORDERED: OMNICEF300 MG PO (16:09)
[2019-06-23] MEDS ORDERED: PREDNISONE10 MG PO (16:09)
--- NOTE | 2019-06-23 16:32 | NUR ---
SPOKE WITH PT RE FLU SHOT. SHE STATES " I DON'T TAKE FLU SHOTS". ALSO DECLINED REFERRAL TO TOBACCO QUITLINE.
--- NOTE | 2019-06-23 18:02 | NUR ---
I have reviewed this patient and I concur with the Shift Assessment completed by the Licensed Practical Nurse today this shift.
--- NOTE | 2019-06-23 18:11 | NUR ---
PT TAKEN DOWN VIA WC AND LEFT WITH FAMILY IN PERSONAL CAR.
--- NOTE | 2019-06-24 17:38 | MORECARE ---
CASE MANAGEMENT DISCHARGE SUMMARY PATIENT: HEMANTH SHAH UNIT: [id number] ADM DATE: 06/20/19 AGE: 68 : 52 SEX: F ROOM/BED: D.3111 AUTHOR: TALYA BLACK PHYSICIAN: REFERRING PHYSICIAN: LUIS CASTELLANO MD DATE OF SERVICE: 06/24/19 Discharge Plan Patient Name: HEMANTH SHAH Facility: [facility]:[place] : 1950 Planned Disposition: Home Anticipated Discharge Date: 06/23/19 Discharge Date: 06/23/2019 Expected LOS: 3 Initial Reviewer: [email or web address] Initial Review Date: 06/21/2019 Generated: 06/24/19 6:37 pm DCP- Discharge Planning Updated by [email or web address]: Mauro Cunningham on 06/21/19 4:[address] Patient Name: HEMANTH SHAH Admission Status: ER Accout number: [id number] Admission Date: 06-20-2019 : 1950 Admission Diagnosis: Attending: LUIS WILLS Current LOS: 1 Anticipated DC Date: Planned Disposition: Home Primary Insurance: MEDICARE A & B Discharge Planning Comments: CM MET WITH PT IN ROOM TO DISCUSS DISCHARGE PLANNING AND NEEDS. PT REPORTS LIVING AT HOME INDEPENDENTLY WITH FAMILY. PT HAS BEDSIDE COMMODE AND WALKER WITH NO MEDICAL EQUIPMENT PROVIDER PREFERNCE. PT REPORTS DR. SAXENA IS IN THE PROCESS OF GETTING HER A HOSPITAL BED FOR HOME USE. PT HAS NO OUTSIDE SERVICES ASSISTING IN THE HOME. CM DISCUSSED AVAILABILITY OF HOME HEALTH, REHAB SERVICES AND MEDICAL EQUIPMENT. PT DENIES DISCHARGE NEEDS, REPORTS HER DAUGHTER WILL PICK HER UP FOR DISCHARGE HOME. PATIENT PLANS TO DISCHARGE HOME WITH FAMILY, DAUGHTER TO TRANSPORT HOME AT DISCHARGE. PT HAS NO ANTICIPATE DISCHARGE NEEDS. CM TO FOLLOW AND ASSIST IF NEEDED. Pattern Layout Worker: Mauro Cunningham DCP- Discharge Planning Updated by [id number]: Brandi Salazar on 06/20/19 2:[address] CM met with patient to discuss dc plans/needs.. Patient is alert/oriented, gives permission to complete CM assessment. Stairs/steps: 6 w/partial rail. Patient lives with her daughter, Roxana Blackmon (unknown #). PCP: Dr. Saxena. Pharmacy: [facility]. HHS: None. DME: ROXANA Bain, states family is trying to obtain a hospital bed. Emergency contact: Buzz Shah (son) [phone]. ADL's: Dependent with bathing, walking, toileting, meal preparation. Denies additional services at this time and feels safe returning to previous environment. CM offered HHS, Rehab prior to returning home. Patient was hospitalized within the past 30 days. Denies use of community resources LINEN MANAGER. Transportation at time of discharge: Buzz Shah (son) [phone] or Doragreg Shah (dtr-in-law) [phone]. CM will follow and assist PRN. DCPIA - Discharge Planning Initial Assessment Updated by [email or web address]: Mauro Cunningham on 06/21/19 5:03 pm * Is the patient Alert and Oriented? Yes * How many steps to enter\exit or inside your home? * PCP DR. SAXENA * Pharmacy [facility] * Preadmission Environment Home with Family * ADLs Independent * Equipment Bedside Commode Walker * Other Equipment NO MEDICAL EQUIPMENT PROVIDER PREFERENCE * List name and contact numbers for known caregivers / representatives who currently or will assist patient after discharge: ANTONIO CAPPS, DTR, BUZZ SHAH, SON, * Verbal permission to speak to the caregivers and representatives has been obtained from the patient. N/A * Community resources currently utilized None * Please name any agencies selected above. NONE * Additional services required to return to the preadmission environment? No * Can the patient safely return to the preadmission environment? Yes * Has this patient been hospitalized within the prior 30 days at any hospital? Yes Coverage Notice Reviewer: [email or web address] Martin Ernandez Notice Issued Date-Time: 06/23/2019 16:36 Notice Type: IM Discharge Notice Notice Delivered To: Patient Relationship to Patient: Drapery Sewer Hand Name: Delivery Method: HAND - Hand Delivered Kaylie Days: Prior Verbal Notification: Recipient Understood Notice: Yes Recipient Signature: Yes Med Rec Note Co-signed by Attending: Coverage Notice Comment: Last DP export: 06/21/19 4:15 Patient Name: HEMANTH SHAH Page 79500 at 1738 All edits/amendments must be made on the electronic document DICTATION DATE: 06/24/191736 CLINICAL DATA RESEARCH: JERSON 06/24/191736 RPT#: [id number] DC DATE:06/23/19 STATUS: DIS IN [facility] [address] [place] [address] END OF REPORT
== END 2019-06-23 18:12 | disposition home or self-care (01) | DRG 871 ==
LOC: D.ER 13:44 → D.M2 16:25
PROVIDERS: Family Medicine; ADMIT Family Medicine Adult Medicine; ATTEND Family Medicine Adult Medicine
DX: A41.9 Sepsis, unspecified organism (principal); J18.9 Pneumonia, unspecified organism; J44.1 Chronic obstructive pulmonary disease with (acute) exacerbation; J44.0 Chronic obstructive pulmonary disease with (acute) lower respiratory infection; F17.213 Nicotine dependence, cigarettes, with withdrawal; I25.10 Atherosclerotic heart disease of native coronary artery without angina pectoris; M06.9 Rheumatoid arthritis, unspecified; I10 Essential (primary) hypertension; E78.5 Hyperlipidemia, unspecified; E11.9 Type 2 diabetes mellitus without complications; K21.9 Gastro-esophageal reflux disease without esophagitis; F41.8 Other specified anxiety disorders; M79.7 Fibromyalgia; F12.90 Cannabis use, unspecified, uncomplicated; D50.9 Iron deficiency anemia, unspecified

== ENCOUNTER → 2019-08-16 16:32 | Outpatient (CLI) | payer MEDICARE ==
[2019-06-21 13:50] VITALS: BMI 25.7
[~2019-08-16 16:32] MED LIST changes: +OMNICEF300 MG PO; +PREDNISONE10 MG PO; +VALIUM10 MG PO
[2019-08-16 17:18] LABS: CHOL - HDL RATIO 3.6 ratio (2.3-4.1); LDL-HDL RATIO 1.8 ratio (1.5-3.5)
== END | disposition home or self-care (01) ==
LOC: D.LABREF 16:32
PROVIDERS: ATTEND Nurse Practitioner Adult Health
DX: R53.83 Other fatigue (principal)

== ENCOUNTER 2019-11-04 18:55 | Inpatient (IN) | payer MEDICARE ==
[~2019-11-04] VITALS: Ht 162.6 cm; Wt 70.3 kg
[~2019-11-04 18:55] MED LIST changes: +AZITHROMYCIN500 MG PO; +BETAPACE 80 MG80 MG PO
[2019-11-04 19:35] LABS: BASOPHILS 0.2 % (0-2); EOSINOPHILS 0.1 % (0-7); HEMATOCRIT 32.1 % (36.0-48.0); HEMOGLOBIN 9.3 g/dL (12-16); IMMATURE GRANULOCYTES 0.7 % (0-5); LYMPHOCYTES 20.2 % (15-50); MCH 28.4 pg (26.0-34.0); MCV 98.2 fL (80.0-100.0); MEAN PLATELET VOLUME 10.7 fL (7.4-10.4); MONOCYTES 8.5 % (2-11); NEUTROPHILS 70.3 % (40-80); PLATELET COUNT 288 10x3/uL (130-400); RBC 3.27 10x6/uL (4.00-5.40); RDW 16.5 % (11.5-14.5); WBC 17.8 10x3/uL (4.8-10.8)
[2019-11-04 19:35] LABS: BILIRUBIN NEGATIVE (NEGATIVE); GLUCOSE NEGATIVE (NEGATIVE); KETONE NEGATIVE (NEGATIVE); NITRITE NEGATIVE (NEGATIVE); UROBILINOGEN NORMAL (NORMAL)
[2019-11-04 19:46] LABS: CALC OSMOLALITY 276 mosm/kg (275-300); CALCIUM 8.8 mg/dL (8.5-10.1); CARBON DIOXIDE 27.1 mmol/L (21.0-32.0); CHLORIDE - SERUM 103 mmol/L (98-107); POTASSIUM - SERUM 3.6 mmol/L (3.5-5.1); SODIUM 138 mmol/L (136-145); UREA NITROGEN 11 mg/dL (7-18); eGFR NON AFRICAN AMERICAN 58 mL/min (90-120)
[2019-11-04 19:47] LABS: GLUCOSE 129 mg/dL (74-106)
[2019-11-04 20:10] LABS: ALBUMIN 2.1 g/dL (3.4-5.0); ALKALINE PHOSPHATASE 88 U/L (30-120); ALT (SGPT) 11 U/L (10-68); BILIRUBIN - TOTAL 0.38 mg/dL (0.2-1.3); CREATINE KINASE 326 UL (21-215); MAGNESIUM - SERUM 1.6 mg/dL (1.8-2.4); THYROID STIMULATING HORMONE 0.35 uIU/mL (0.36-3.74)
[2019-11-04 20:11] LABS: TROPONIN-I < 0.017 ng/mL (0.000-0.060)
[2019-11-04 20:12] LABS: CKMB 2.3 U/L (0.0-3.6)
[2019-11-04] MEDS ORDERED: ARAVA10 MG PO (20:14)
[2019-11-04 21:07] VITALS: BP 105/78
[2019-11-05 00:07] VITALS: BP 128/91; BMI 26.6
[2019-11-05 04:00] VITALS: BP 183/76
[2019-11-05 05:22] LABS: BASOPHILS 0.2 % (0-2); EOSINOPHILS 0.1 % (0-7); HEMATOCRIT 27.4 % (36.0-48.0); HEMOGLOBIN 7.8 g/dL (12-16); IMMATURE GRANULOCYTES 0.5 % (0-5); LYMPHOCYTES 20.1 % (15-50); MCH 27.8 pg (26.0-34.0); MCHC 28.5 g/dL (31.0-37.0); MCV 97.5 fL (80.0-100.0); MEAN PLATELET VOLUME 11.4 fL (7.4-10.4); MONOCYTES 9.5 % (2-11); NEUTROPHILS 69.6 % (40-80); PLATELET COUNT 275 10x3/uL (130-400); RBC 2.81 10x6/uL (4.00-5.40); RDW 16.6 % (11.5-14.5); WBC 15.7 10x3/uL (4.8-10.8)
[2019-11-05 05:42] LABS: ANION GAP 13.3 mmol/L (8-16); CALCIUM 8.1 mg/dL (8.5-10.1); CARBON DIOXIDE 23.9 mmol/L (21.0-32.0); CREATININE - SERUM 0.9 mg/dL (0.6-1.3); MAGNESIUM - SERUM 1.4 mg/dL (1.8-2.4); PHOSPHOROUS 3.3 mg/dL (2.5-4.9); POTASSIUM - SERUM 3.2 mmol/L (3.5-5.1)
[2019-11-05 08:53] VITALS: BP 189/83
[2019-11-05 12:13] VITALS: BP 126/76
[2019-11-05 16:58] VITALS: BP 158/84
--- NOTE | 2019-11-05 18:51 | MORECARE ---
CASE MANAGEMENT DISCHARGE SUMMARY PATIENT: HEMANTH DUMONT UNIT: [id number] ADM DATE: 11/04/19 AGE: 69 : 52 SEX: F ROOM/BED: D.2224 AUTHOR: TALYA BLACK PHYSICIAN: REFERRING PHYSICIAN: RYAN MARTINEZ MD DATE OF SERVICE: 11/05/19 Discharge Plan Patient Name: HEMANTH DUMONT [facility] [facility] 1950 Planned Disposition: Anticipated Discharge Date: Discharge Date: Expected LOS: Initial Reviewer: [email or web address] Initial Review Date: 11/04/2019 Generated: 11/05/19 7:50 pm Comments DCP- Discharge Planning Updated by [email or web address]: Natalya Melgar on 11/05/19 5:[address] CM has attempted multiple times today to call patient in room and her phone number and can't get her to answer. CM also called daughter number that's listed and number disconnected. CM tried to call son and didn't get answer. Patient is in isolation. CM will continue to follow and assist with discharge planning / needs. Patient Name: HEMANTH DUMONT Page 20290 at 1851 All edits/amendments must be made on the electronic document DICTATION DATE: 11/05/191849 RACEBOOK WRITER: JERSON 11/05/191849 RPT#: [id number] DC DATE: STATUS: ADM IN [facility] [address] [place] [address] END OF REPORT
[2019-11-05 20:00] VITALS: BP 156/74
[2019-11-06] VITALS (8 sets, daily range): BP systolic 118–205; BP diastolic 51–125
[2019-11-06 05:20] LABS: BASOPHILS 0.2 % (0-2); EOSINOPHILS 0.3 % (0-7); HEMATOCRIT 25.8 % (36.0-48.0); IMMATURE GRANULOCYTES 0.5 % (0-5); LYMPHOCYTES 18.1 % (15-50); MCH 27.7 pg (26.0-34.0); MCHC 28.3 g/dL (31.0-37.0); MCV 97.7 fL (80.0-100.0); MEAN PLATELET VOLUME 11.5 fL (7.4-10.4); MONOCYTES 8.1 % (2-11); NEUTROPHILS 72.8 % (40-80); PLATELET COUNT 282 10x3/uL (130-400); RBC 2.64 10x6/uL (4.00-5.40); RDW 16.4 % (11.5-14.5); WBC 12.2 10x3/uL (4.8-10.8)
[2019-11-06 05:43] LABS: CALC OSMOLALITY 275 mosm/kg (275-300); CALCIUM 7.6 mg/dL (8.5-10.1); CARBON DIOXIDE 21.8 mmol/L (21.0-32.0); CHLORIDE - SERUM 106 mmol/L (98-107); CREATININE - SERUM 0.8 mg/dL (0.6-1.3); GLUCOSE 76 mg/dL (74-106); MAGNESIUM - SERUM 1.5 mg/dL (1.8-2.4); POTASSIUM - SERUM 3.3 mmol/L (3.5-5.1); SODIUM 139 mmol/L (136-145); UREA NITROGEN 9 mg/dL (7-18); eGFR NON AFRICAN AMERICAN 76 mL/min (90-120)
[2019-11-06 05:47] LABS: PHOSPHOROUS 2.4 mg/dL (2.5-4.9)
[2019-11-06 05:50] LABS: HEMOGLOBIN 7.3 g/dL (12-16)
[2019-11-06 09:54] LABS: UDS - AMPHET NEGATIVE QUAL (NEGATIVE); UDS - BARB NEGATIVE QUAL (NEGATIVE); UDS - BENZO POSITIVE QUAL (NEGATIVE); UDS - COCAINE NEGATIVE QUAL (NEGATIVE); UDS - OPIATE POSITIVE QUAL (NEGATIVE); UDS - PCP NEGATIVE QUAL (NEGATIVE); UDS - THC POSITIVE QUAL (NEGATIVE)
[2019-11-07 00:55] VITALS: BP 120/48
[2019-11-07 05:24] LABS: BASOPHILS 0.2 % (0-2); EOSINOPHILS 0.6 % (0-7); HEMATOCRIT 29.5 % (36.0-48.0); HEMOGLOBIN 8.6 g/dL (12-16); IMMATURE GRANULOCYTES 0.4 % (0-5); LYMPHOCYTES 22.4 % (15-50); MCH 28.3 pg (26.0-34.0); MCHC 29.2 g/dL (31.0-37.0); MEAN PLATELET VOLUME 11.4 fL (7.4-10.4); MONOCYTES 9.7 % (2-11); NEUTROPHILS 66.7 % (40-80); RBC 3.04 10x6/uL (4.00-5.40); RDW 16.3 % (11.5-14.5); WBC 12.3 10x3/uL (4.8-10.8)
[2019-11-07 05:34] LABS: PLATELET COUNT 359 10x3/uL (130-400)
[2019-11-07 05:49] LABS: CALCIUM 7.8 mg/dL (8.5-10.1); CARBON DIOXIDE 18.9 mmol/L (21.0-32.0); PHOSPHOROUS 1.9 mg/dL (2.5-4.9)
[2019-11-07 05:56] LABS: MAGNESIUM - SERUM 1.9 mg/dL (1.8-2.4); POTASSIUM - SERUM 2.9 mmol/L (3.5-5.1)
[2019-11-07 06:50] VITALS: BP 167/79
[2019-11-07 09:01] VITALS: BP 121/55
--- NOTE | 2019-11-07 12:06 | MORECARE ---
CASE MANAGEMENT DISCHARGE SUMMARY PATIENT: HEMANTH DUMONT UNIT: [id number] ADM DATE: 11/04/19 AGE: 69 : 52 SEX: F ROOM/BED: D.2224 AUTHOR: TALYA BLACK PHYSICIAN: REFERRING PHYSICIAN: RYAN MARTINEZ MD DATE OF SERVICE: 11/07/19 Discharge Plan Patient Name: HEMANTH DUMONT Facility: [facility]:[place] : 1950 Planned Disposition: Anticipated Discharge Date: Discharge Date: Expected LOS: Initial Reviewer: [email or web address] Initial Review Date: 11/04/2019 Generated: 11/07/19 1:06 pm Comments DCP- Discharge Planning Updated by [email or web address]: Marycruz Walker on 11/07/19 11:[address] I HAVE ATTEMPTED TO CALL PATIENT'S DAUGHTER AND I HAVE NOT HAD ANY LUCK. PER PATIENTS NURSE HER DAUGHTER HAS NOT CALLED. LOOKING BACK ON THE PATIENTS LAST ADMISSION TO THE HOSPITAL (09/21/19) I WAS THE CM WHO SAW HER. FROM THOSE NOTES SHE WAS LIVING WITH HER SON'S MOTHER IN [place] AND WAS INDEPENDENT. SHE HAD REQUESTED MEALS ON WHEELS AND A REFERRAL WAS MADE AT THAT TIME. SHE HAS A WASLKER AND SHOWER CHAIR AT HOME. THE PATIENT IS NOT ABLE TO ANSWER QUESTIONS AT THIS TIME. CM WILL CONTIUE TO FOLLOW AND ASSIST NEEDED DCP- Discharge Planning Updated by [email or web address]: Natalya Melgar on 11/05/19 5:[address] CM has attempted multiple times today to call patient in room and her phone number and can't get her to answer. CM also called daughter number that's listed and number disconnected. CM tried to call son and didn't get answer. Patient is in isolation. CM will continue to follow and assist with discharge planning / needs. Last DP export: 11/05/19 5:50 pm Patient Name: HEMANTH DUMONT Page 06021 at 1206 All edits/amendments must be made on the electronic document DICTATION DATE: 11/07/19 1206 SHOP FOREMAN: JERSON 11/07/19 1206 RPT#: [id number] DC DATE: STATUS: ADM IN [facility] [address] [facility] [place] [address] END OF REPORT
--- NOTE | 2019-11-07 12:27 | MORECARE ---
CASE MANAGEMENT DISCHARGE SUMMARY PATIENT: HEMANTH DUMONT UNIT: [id number] ADM DATE: 11/04/19 AGE: 69 : 52 SEX: F ROOM/BED: D.2224 AUTHOR: SOFIA,DOC PHYSICIAN: REFERRING PHYSICIAN: RYAN MARTINEZ MD DATE OF SERVICE: 11/07/19 Discharge Plan Patient Name: HEMANTH DUMONT Facility: [facility]:[place] : 1950 Planned Disposition: Anticipated Discharge Date: Discharge Date: Expected LOS: Initial Reviewer: [email or web address] Initial Review Date: 11/04/2019 Generated: 11/07/19 1:27 pm Comments DCP- Discharge Planning Updated by [email or web address]: Marycruz Walker on 11/07/19 11:[address] Martha with Inpatient rehab called and stated that they would take her if she is agreeable and when she is stable with her mentation. DCP- Discharge Planning Updated by [email or web address]: Marycruz Walker on 11/07/19 11:[address] I HAVE ATTEMPTED TO CALL PATIENT'S DAUGHTER AND I HAVE NOT HAD ANY LUCK. PER PATIENTS NURSE HER DAUGHTER HAS NOT CALLED. LOOKING BACK ON THE PATIENTS LAST ADMISSION TO THE HOSPITAL (09/21/19) I WAS THE CM WHO SAW HER. FROM THOSE NOTES SHE WAS LIVING WITH HER SON'S MOTHER IN [place] AND WAS INDEPENDENT. SHE HAD REQUESTED MEALS ON WHEELS AND A REFERRAL WAS MADE AT THAT TIME. SHE HAS A WASLKER AND SHOWER CHAIR AT HOME. THE PATIENT IS NOT ABLE TO ANSWER QUESTIONS AT THIS TIME. CM WILL CONTIUE TO FOLLOW AND ASSIST NEEDED DCP- Discharge Planning Updated by [email or web address]: Natalya Melgar on 11/05/19 5:[address] CM has attempted multiple times today to call patient in room and her phone number and can't get her to answer. CM also called daughter number that's listed and number disconnected. CM tried to call son and didn't get answer. Patient is in isolation. CM will continue to follow and assist with discharge planning / needs. DCPIA - Discharge Planning Initial Assessment Updated by [email or web address]: Marycruz Walker on 11/07/19 12:06 pm * Is the patient Alert and Oriented? Yes * PCP SAXENA * [facility] * Preadmission Environment Home with Family * ADLs Independent * Equipment Rolling Walker Shower Chair * List name and contact numbers for known caregivers / representatives who currently or will assist patient after discharge: ANTONIO (DAUGHTER) [phone] * Community resources currently utilized Meals on Wheels * Please name any agencies selected above. ?? MEALS ON WHEELS Last DP export: 11/07/19 11:06 am Patient Name: HEMANTH DUMONT Page 67221 at 1227 All edits/amendments must be made on the electronic document DICTATION DATE: 11/07/19 1227 DIRECTOR OF COMMUNICATIONS: JERSON 11/07/19 1227 RPT#: [id number] DC DATE: STATUS: ADM IN [facility] [address] [place] [address] END OF REPORT
[2019-11-07 13:41] VITALS: BP 146/72
[2019-11-07 18:29] VITALS: BP 146/65
[2019-11-07 21:49] VITALS: BP 140/82
[2019-11-08 01:49] VITALS: BP 138/79
[2019-11-08 05:30] LABS: BASOPHILS 0.3 % (0-2); HEMOGLOBIN 8.2 g/dL (12-16); IMMATURE GRANULOCYTES 0.5 % (0-5); LYMPHOCYTES 31.5 % (15-50); MCH 28.1 pg (26.0-34.0); MCHC 29.3 g/dL (31.0-37.0); MCV 95.9 fL (80.0-100.0); MEAN PLATELET VOLUME 10.8 fL (7.4-10.4); MONOCYTES 10.9 % (2-11); NEUTROPHILS 55.8 % (40-80); PLATELET COUNT 328 10x3/uL (130-400); RBC 2.92 10x6/uL (4.00-5.40); RDW 16.2 % (11.5-14.5)
[2019-11-08 05:43] LABS: WBC 7.7 10x3/uL (4.8-10.8)
[2019-11-08 05:52] LABS: ANION GAP 14.6 mmol/L (8-16); CALCIUM 8.2 mg/dL (8.5-10.1); CARBON DIOXIDE 20.4 mmol/L (21.0-32.0); CREATININE - SERUM 0.9 mg/dL (0.6-1.3)
[2019-11-08 06:01] VITALS: BP 146/67
[2019-11-08 06:02] LABS: PHOSPHOROUS 2.7 mg/dL (2.5-4.9)
[2019-11-08 09:37] VITALS: BP 179/77
[2019-11-08 13:42] VITALS: BP 153/79
[2019-11-08 17:16] VITALS: BP 152/62
[2019-11-08 20:00] VITALS: BP 119/67
[2019-11-09] VITALS (7 sets, daily range): BP systolic 124–194; BP diastolic 65–92; Ht 162.6 cm; Wt 70.3 kg
[2019-11-09 04:32] LABS: BASOPHILS 0.1 % (0-2); EOSINOPHILS 1.2 % (0-7); HEMATOCRIT 28.2 % (36.0-48.0); HEMOGLOBIN 8.2 g/dL (12-16); LYMPHOCYTES 33.3 % (15-50); MCH 28.3 pg (26.0-34.0); MCHC 29.1 g/dL (31.0-37.0); MCV 97.2 fL (80.0-100.0); MEAN PLATELET VOLUME 10.7 fL (7.4-10.4); MONOCYTES 10.5 % (2-11); NEUTROPHILS 53.9 % (40-80); PLATELET COUNT 328 10x3/uL (130-400); RDW 16.2 % (11.5-14.5); WBC 6.8 10x3/uL (4.8-10.8)
[2019-11-09 05:02] LABS: ANION GAP 15.1 mmol/L (8-16); CALCIUM 8.3 mg/dL (8.5-10.1); CARBON DIOXIDE 21.7 mmol/L (21.0-32.0); POTASSIUM - SERUM 3.8 mmol/L (3.5-5.1)
[2019-11-09 05:05] LABS: PHOSPHOROUS 3.6 mg/dL (2.5-4.9)
[2019-11-10] VITALS: BP 186/78
[2019-11-10 04:00] VITALS: BP 178/82
[2019-11-10 09:00] VITALS: BP 137/66
[2019-11-10 14:18] VITALS: BP 114/74
[2019-11-10 20:00] VITALS: BP 175/87
[2019-11-11] VITALS: BP 129/73
[2019-11-11 04:00] VITALS: BP 139/84
[2019-11-11 17:50] VITALS: BP 131/85
[2019-11-11 22:30] VITALS: BP 121/72
[2019-11-12 01:25] VITALS: BP 125/76
[2019-11-12 04:13] VITALS: BP 149/80
[2019-11-12 04:53] LABS: BASOPHILS 0.6 % (0-2); EOSINOPHILS 1.1 % (0-7); HEMATOCRIT 35.6 % (36.0-48.0); HEMOGLOBIN 10.6 g/dL (12-16); IMMATURE GRANULOCYTES 3.8 % (0-5); LYMPHOCYTES 40.4 % (15-50); MCH 28.6 pg (26.0-34.0); MCHC 29.8 g/dL (31.0-37.0); MEAN PLATELET VOLUME 9.9 fL (7.4-10.4); MONOCYTES 12.6 % (2-11); NEUTROPHILS 41.5 % (40-80); RBC 3.71 10x6/uL (4.00-5.40); RDW 16.5 % (11.5-14.5); WBC 6.6 10x3/uL (4.8-10.8)
[2019-11-12 05:19] LABS: ANION GAP 13.9 mmol/L (8-16); CALCIUM 9.1 mg/dL (8.5-10.1); CARBON DIOXIDE 24.3 mmol/L (21.0-32.0); CREATININE - SERUM 1.1 mg/dL (0.6-1.3); PLATELET COUNT 518 10x3/uL (130-400); POTASSIUM - SERUM 3.2 mmol/L (3.5-5.1)
[2019-11-12 09:27] VITALS: BP 146/88
[2019-11-12 13:19] VITALS: BP 156/80
[2019-11-12 17:47] VITALS: BP 122/69
--- NOTE | 2019-11-12 19:21 | MORECARE ---
CASE MANAGEMENT DISCHARGE SUMMARY PATIENT: HEMANTH DUMONT UNIT: [id number] ADM DATE: 11/04/19 AGE: 69 : 52 SEX: F ROOM/BED: D.2224 AUTHOR: SOFIA,DOC PHYSICIAN: REFERRING PHYSICIAN: RYAN MARTINEZ MD DATE OF SERVICE: 11/12/19 Discharge Plan Patient Name: HEMANTH DUMONT Facility: [facility]:[place] : 1950 Planned Disposition: Home with Home Health Anticipated Discharge Date: Discharge Date: Expected LOS: Initial Reviewer: [email or web address] Initial Review Date: 11/04/2019 Generated: 11/12/19 8:20 pm Comments DCP- Discharge Planning Updated by [id number]: Marycruz Walker on 11/07/19 11:[address] Martha with Inpatient rehab called and stated that they would take her if she is agreeable and when she is stable with her mentation. DCP- Discharge Planning Updated by [email or web address]: Marycruz Walker on 11/07/19 11:[address] I HAVE ATTEMPTED TO CALL PATIENT'S DAUGHTER AND I HAVE NOT HAD ANY LUCK. PER PATIENTS NURSE HER DAUGHTER HAS NOT CALLED. LOOKING BACK ON THE PATIENTS LAST ADMISSION TO THE HOSPITAL (09/21/19) I WAS THE CM WHO SAW HER. FROM THOSE NOTES SHE WAS LIVING WITH HER SON'S MOTHER IN [place] AND WAS INDEPENDENT. SHE HAD REQUESTED MEALS ON WHEELS AND A REFERRAL WAS MADE AT THAT TIME. SHE HAS A WASLKER AND SHOWER CHAIR AT HOME. THE PATIENT IS NOT ABLE TO ANSWER QUESTIONS AT THIS TIME. CM WILL CONTIUE TO FOLLOW AND ASSIST NEEDED DCP- Discharge Planning Updated by [id number]: Natalya Melgar on 11/05/19 5:[address] CM has attempted multiple times today to call patient in room and her phone number and can't get her to answer. CM also called daughter number that's listed and number disconnected. CM tried to call son and didn't get answer. Patient is in isolation. CM will continue to follow and assist with discharge planning / needs. DCPIA - Discharge Planning Initial Assessment Updated by [email or web address]: Marycruz Walker on 11/07/19 12:06 pm * Is the patient Alert and Oriented? Yes * PCP SAXENA * [facility] * Preadmission Environment Home with Family * ADLs Independent * Equipment Rolling Walker Shower Chair * List name and contact numbers for known caregivers / representatives who currently or will assist patient after discharge: ANTONIO (DAUGHTER) [phone] * Community resources currently utilized [employer] Whe[employer] * Please name any agencies selected above. ?? [employer] Last DP export: 11/07/19 11:27 am Patient Name: HEMANTH DUMONT Page [id number] at 1921 All edits/amendments must be made on the electronic document DICTATION DATE: 11/12/191919 STUDENT ASSISTANCE COUNSELOR: JERSON 11/12/191919 RPT#: [id number] DC DATE: STATUS: ADM IN [facility] [address] [place] [address] END OF REPORT
--- NOTE | 2019-11-12 19:27 | MORECARE ---
CASE MANAGEMENT DISCHARGE SUMMARY PATIENT: HEMANTH DUMONT UNIT: [id number] ADM DATE: 11/04/19 AGE: 69 : 52 SEX: F ROOM/BED: D.2224 AUTHOR: SOFIA,DOC PHYSICIAN: REFERRING PHYSICIAN: RYAN MARTINEZ MD DATE OF SERVICE: 11/12/19 Discharge Plan Patient Name: HEMANTH DUMONT Facility: [facility]:[place] : 1950 Planned Disposition: Home with Home Health Anticipated Discharge Date: Discharge Date: Expected LOS: Initial Reviewer: [email or web address] Initial Review Date: 11/04/2019 Generated: 11/12/19 8:27 pm Comments DCP- Discharge Planning Updated by [id number]: Marycruz Walker on 11/12/19 6:[address] LATE ENTRY 1420 SPOKE WITH PATIENT ABOUT INPATIENT REHAB AND SHE DID NOT WANT TO GO, SHE WANTED TO GO HOME, BUT WAS AGREEABLE TO HOME HEALTH. SHE DID NOT KNOW THE COMPANY THAT SHE HAS USED INTHE PAST, BUT ASKED BE TO LOOK IT UP AND IS OK WITH THAT ONE. IMM SERVED AND EXPLAINED TO HER. COPY PLACED IN CHART. CM WILL CONTINUE TO ASSIST WITH DC PLANNING DCP- Discharge Planning Updated by [email or web address]: Marycruz Walker on 11/07/19 11:[address] Martha with Inpatient rehab called and stated that they would take her if she is agreeable and when she is stable with her mentation. DCP- Discharge Planning Updated by [email or web address]: Marycruz Walker on 11/07/19 11:[address] I HAVE ATTEMPTED TO CALL PATIENT'S DAUGHTER AND I HAVE NOT HAD ANY LUCK. PER PATIENTS NURSE HER DAUGHTER HAS NOT CALLED. LOOKING BACK ON THE PATIENTS LAST ADMISSION TO THE HOSPITAL (09/21/19) I WAS THE CM WHO SAW HER. FROM THOSE NOTES SHE WAS LIVING WITH HER SON'S MOTHER IN [place] AND WAS INDEPENDENT. SHE HAD REQUESTED MEALS ON WHEELS AND A REFERRAL WAS MADE AT THAT TIME. SHE HAS A WASLKER AND SHOWER CHAIR AT HOME. THE PATIENT IS NOT ABLE TO ANSWER QUESTIONS AT THIS TIME. CM WILL CONTIUE TO FOLLOW AND ASSIST NEEDED DCP- Discharge Planning Updated by [email or web address]: Natalya Melgar on 11/05/19 5:[address] CM has attempted multiple times today to call patient in room and her phone number and can't get her to answer. CM also called daughter number that's listed and number disconnected. CM tried to call son and didn't get answer. Patient is in isolation. CM will continue to follow and assist with discharge planning / needs. DCPIA - Discharge Planning Initial Assessment Updated by [id number]: Marycruz Walker on 11/07/19 12:06 pm * Is the patient Alert and Oriented? Yes * PCP HEMANTH * [facility] * Preadmission Environment Home with Family * ADLs Independent * Equipment Rolling Walker Shower Chair * List name and contact numbers for known caregivers / representatives who currently or will assist patient after discharge: ANTONIO (DAUGHTER) [phone] * Community resources currently utilized Meals [employer] Wheels * Please name any agencies selected above. ?? [employer] Coverage Notice Reviewer: [email or web address] Martin Walker Notice Issued Date-Time: 11/12/2019 14:20 Notice Type: IM Discharge Notice Notice Delivered To: Patient Relationship to Patient: Bacteriologist Industrial Name: Delivery Method: HAND - Hand Delivered Kaylie Days: Prior Verbal Notification: Recipient Understood Notice: Yes Recipient Signature: Yes Med Rec Note Co-signed by Attending: Coverage Notice Comment: Reviewer: [id number] Walker Notice Issued Date-Time: 11/12/2019 14:20 Notice Type: Patient Choice Letter Notice Delivered To: Patient Relationship to Patient: Bacteriologist Industrial Name: Delivery Method: HAND - Hand Delivered Kaylie Days: Prior Verbal Notification: Recipient Understood Notice: Yes Recipient Signature: Yes Med Rec Note Co-signed by Attending: Coverage Notice Comment: [facility] Last DP export: 11/12/19 6:21 p Patient Name: HEMANTH DUMONT Page [id number] at 1927 All edits/amendments must be made on the electronic document DICTATION DATE: 11/12/191926 MANAGER LIGHTING: JERSON 11/12/191926 RPT#: [id number] DC DATE: STATUS: ADM IN [facility] [address] [place] [address] END OF REPORT
[2019-11-12 20:00] VITALS: BP 110/66
[2019-11-13 00:57] VITALS: BP 144/78
[2019-11-13 04:57] VITALS: BP 154/76
[2019-11-13 05:08] LABS: BASOPHILS 0.2 % (0-2); EOSINOPHILS 0.8 % (0-7); HEMATOCRIT 36.5 % (36.0-48.0); HEMOGLOBIN 10.6 g/dL (12-16); IMMATURE GRANULOCYTES 2.3 % (0-5); LYMPHOCYTES 30.3 % (15-50); MCH 28.2 pg (26.0-34.0); MCV 97.1 fL (80.0-100.0); MEAN PLATELET VOLUME 10.4 fL (7.4-10.4); MONOCYTES 12.6 % (2-11); NEUTROPHILS 53.8 % (40-80); PLATELET COUNT 544 10x3/uL (130-400); RBC 3.76 10x6/uL (4.00-5.40); RDW 16.6 % (11.5-14.5)
[2019-11-13 05:16] LABS: WBC 8.8 10x3/uL (4.8-10.8)
[2019-11-13 05:24] LABS: CALCIUM 9.7 mg/dL (8.5-10.1); CARBON DIOXIDE 21.6 mmol/L (21.0-32.0); CREATININE - SERUM 1.1 mg/dL (0.6-1.3); POTASSIUM - SERUM 3.6 mmol/L (3.5-5.1)
[2019-11-13 08:47] VITALS: BP 152/92
[2019-11-13 12:48] VITALS: BP 131/79
--- NOTE | 2019-11-13 13:25 | MORECARE ---
CASE MANAGEMENT DISCHARGE SUMMARY PATIENT: HEMANTH DUMONT UNIT: [id number] ADM DATE: 11/04/19 AGE: 69 : 52 SEX: F ROOM/BED: D.2224 AUTHOR: SOFIA,DOC PHYSICIAN: REFERRING PHYSICIAN: RYAN MARTINEZ MD DATE OF SERVICE: 11/13/19 Discharge Plan Patient Name: HEMANTH DUMONT Facility: [facility]:[place] : 1950 Planned Disposition: Home with Home Health Anticipated Discharge Date: Discharge Date: Expected LOS: Initial Reviewer: [email or web address] Initial Review Date: 11/04/2019 Generated: 11/13/19 2:24 pm Comments DCP- Discharge Planning Updated by [id number]: Marycruz Walker on 11/12/19 6:[address] LATE ENTRY 1420 SPOKE WITH PATIENT ABOUT INPATIENT REHAB AND SHE DID NOT WANT TO GO, SHE WANTED TO GO HOME, BUT WAS AGREEABLE TO HOME HEALTH. SHE DID NOT KNOW THE COMPANY THAT SHE HAS USED INTHE PAST, BUT ASKED BE TO LOOK IT UP AND IS OK WITH THAT ONE. IMM SERVED AND EXPLAINED TO HER. COPY PLACED IN CHART. CM WILL CONTINUE TO ASSIST WITH DC PLANNING DCP- Discharge Planning Updated by [id number]: Marycruz Walker on 11/07/19 11:[address] Martha with Inpatient rehab called and stated that they would take her if she is agreeable and when she is stable with her mentation. DCP- Discharge Planning Updated by [id number]: Marycruz Walker on 11/07/19 11:[address] I HAVE ATTEMPTED TO CALL PATIENT'S DAUGHTER AND I HAVE NOT HAD ANY LUCK. PER PATIENTS NURSE HER DAUGHTER HAS NOT CALLED. LOOKING BACK ON THE PATIENTS LAST ADMISSION TO THE HOSPITAL (09/21/19) I WAS THE CM WHO SAW HER. FROM THOSE NOTES SHE WAS LIVING WITH HER SON'S MOTHER IN [place] AND WAS INDEPENDENT. SHE HAD REQUESTED MEALS ON WHEELS AND A REFERRAL WAS MADE AT THAT TIME. SHE HAS A WASLKER AND SHOWER CHAIR AT HOME. THE PATIENT IS NOT ABLE TO ANSWER QUESTIONS AT THIS TIME. CM WILL CONTIUE TO FOLLOW AND ASSIST NEEDED DCP- Discharge Planning Updated by [email or web address]: Natalya Melgar on 11/05/19 5:[address] CM has attempted multiple times today to call patient in room and her phone number and can't get her to answer. CM also called daughter number that's listed and number disconnected. CM tried to call son and didn't get answer. Patient is in isolation. CM will continue to follow and assist with discharge planning / needs. DCPIA - Discharge Planning Initial Assessment Updated by [id number]: Marycruz Walker on 11/07/19 12:06 pm * Is the patient Alert and Oriented? Yes * PCP HEMANTH * [facility] * Preadmission Environment Home with Family * ADLs Independent * Equipment Rolling Walker Shower Chair * List name and contact numbers for known caregivers / representatives who currently or will assist patient after discharge: ANTONIO (DAUGHTER) [phone] * Community resources currently utilized Me[employer] Wheels * Please name any agencies selected above. ?? [employer] External Providers External Provider: [facility] Next Contact Date: Service Request Date: Service Type: Resolution: Reviewer: Comments: Coverage Notice Reviewer: [id number] Martin Walker Notice Issued Date-Time: 11/12/2019 14:20 Notice Type: IM Discharge Notice Notice Delivered To: Patient Relationship to Patient: Editor Sound Name: Delivery Method: HAND - Hand Delivered Kaylie Days: Prior Verbal Notification: Recipient Understood Notice: Yes Recipient Signature: Yes Med Rec Note Co-signed by Attending: Coverage Notice Comment: Reviewer: [id number] Martin Walker Notice Issued Date-Time: 11/12/2019 14:20 Notice Type: Patient Choice Letter Notice Delivered To: Patient Relationship to Patient: Editor Sound Name: Delivery Method: HAND - Hand Delivered Kaylie Days: Prior Verbal Notification: Recipient Understood Notice: Yes Recipient Signature: Yes Med Rec Note Co-signed by Attending: Coverage Notice Comment: [facility] Last DP export: 11/12/19 6:27 p Patient Name: HEMANTH DUMONT Page 52426 at 1325 All edits/amendments must be made on the electronic document DICTATION DATE: 11/13/19 1324 LOCK MAINTENANCE SUPERVISOR: JERSON 11/13/19 1324 RPT#: [id number] DC DATE: STATUS: ADM IN [facility] [address] [place] [address] END OF REPORT
--- NOTE | 2019-11-13 13:42 | MORECARE ---
CASE MANAGEMENT DISCHARGE SUMMARY PATIENT: HEMANTH DUMONT UNIT: [id number] ADM DATE: 11/04/19 AGE: 69 : 52 SEX: F ROOM/BED: D.2224 AUTHOR: SOFIA,DOC PHYSICIAN: REFERRING PHYSICIAN: RYAN MARTINEZ MD DATE OF SERVICE: 11/13/19 Discharge Plan Patient Name: HEMANTH DUMONT Facility: [facility]:[place] : 1950 Planned Disposition: Home with Home Health Anticipated Discharge Date: Discharge Date: Expected LOS: Initial Reviewer: [id number] Initial Review Date: 11/04/2019 Generated: 11/13/19 2:42 pm Comments DCP- Discharge Planning Updated by [id number]: Marycruz Walker on 11/13/19 12:[address] I SPOKE WITH PATIENT'S DAUGHTER ABOUT HER BEING DISCHARGED TODAY WITH HOME HEALTH AND PT. SHE IS GREATFUL FOR THIS AND DID NOT CARE WHAT COMPANY WE USED, SHE STATED THAT SHE HAS NOT HAD HH IN THE PAST. REFERRAL SENT TO [facility] DCP- Discharge Planning Updated by [email or web address]: Marycruz Walker on 11/12/19 6:[address] LATE ENTRY 1420 SPOKE WITH PATIENT ABOUT INPATIENT REHAB AND SHE DID NOT WANT TO GO, SHE WANTED TO GO HOME, BUT WAS AGREEABLE TO HOME HEALTH. SHE DID NOT KNOW THE COMPANY THAT SHE HAS USED INTHE PAST, BUT ASKED BE TO LOOK IT UP AND IS OK WITH THAT ONE. IMM SERVED AND EXPLAINED TO HER. COPY PLACED IN CHART. CM WILL CONTINUE TO ASSIST WITH DC PLANNING DCP- Discharge Planning Updated by [id number]: Marycruz Walker on 11/07/19 11:[address] Martha with Inpatient rehab called and stated that they would take her if she is agreeable and when she is stable with her mentation. DCP- Discharge Planning Updated by [id number]: Marycruz Walker on 11/07/19 11:[address] I HAVE ATTEMPTED TO CALL PATIENT'S DAUGHTER AND I HAVE NOT HAD ANY LUCK. PER PATIENTS NURSE HER DAUGHTER HAS NOT CALLED. LOOKING BACK ON THE PATIENTS LAST ADMISSION TO THE HOSPITAL (09/21/19) I WAS THE CM WHO SAW HER. FROM THOSE NOTES SHE WAS LIVING WITH HER SON'S MOTHER IN [place] AND WAS INDEPENDENT. SHE HAD REQUESTED MEALS ON WHEELS AND A REFERRAL WAS MADE AT THAT TIME. SHE HAS A WASLKER AND SHOWER CHAIR AT HOME. THE PATIENT IS NOT ABLE TO ANSWER QUESTIONS AT THIS TIME. CM WILL CONTIUE TO FOLLOW AND ASSIST NEEDED DCP- Discharge Planning Updated by [id number]: Natalya Ramón on 11/05/19 5:[address] CM has attempted multiple times today to call patient in room and her phone number and can't get her to answer. CM also called daughter number that's listed and number disconnected. CM tried to call son and didn't get answer. Patient is in isolation. CM will continue to follow and assist with discharge planning / needs. DCPIA - Discharge Planning Initial Assessment Updated by [id number]: Marycruz Walker on 11/07/19 12:06 pm * Is the patient Alert and Oriented? Yes * PCP SAXENA * [facility] * Preadmission Environment Home with Family * ADLs Independent * Equipment Rolling Walker Shower Chair * List name and contact numbers for known caregivers / representatives who currently or will assist patient after discharge: ANTONIO (DAUGHTER) [phone] * Community resources currently utilized Me[employer] Wheels * Please name any agencies selected above. ?? [employer] Coverage Notice Reviewer: [id number] Martin Walker Notice Issued Date-Time: 11/12/2019 14:20 Notice Type: IM Discharge Notice Notice Delivered To: Patient Relationship to Patient: Cord Tire Builder Name: Delivery Method: HAND - Hand Delivered Kaylie Days: Prior Verbal Notification: Recipient Understood Notice: Yes Recipient Signature: Yes Med Rec Note Co-signed by Attending: Coverage Notice Comment: Reviewer: [id number] Martin Walker Notice Issued Date-Time: 11/12/2019 14:20 Notice Type: Patient Choice Letter Notice Delivered To: Patient Relationship to Patient: Cord Tire Builder Name: Delivery Method: HAND - Hand Delivered Kaylie Days: Prior Verbal Notification: Recipient Understood Notice: Yes Recipient Signature: Yes Med Rec Note Co-signed by Attending: Coverage Notice Comment: [facility] Last DP export: 11/13/19 12:25 p Patient Name: HEMANTH DUMONT Page [id number] at 1342 All edits/amendments must be made on the electronic document DICTATION DATE: 11/13/191341 IMAGING NURSE: JERSON 11/13/19 134 RPT#: [id number] DC DATE: STATUS: ADM IN [facility] [address] [place] [address] END OF REPORT
--- NOTE | 2019-11-13 14:09 | MORECARE ---
CASE MANAGEMENT DISCHARGE SUMMARY PATIENT: HEMANTH DUMONT UNIT: [id number] ADM DATE: 11/04/19 AGE: 69 : 54 SEX: F ROOM/BED: D.2224 AUTHOR: SOFIA,DOC PHYSICIAN: REFERRING PHYSICIAN: RYAN MARTINEZ MD DATE OF SERVICE: 11/13/19 Discharge Plan Patient Name: HEMANTH DUMONT Facility: [facility]:[place] : 1950 Planned Disposition: Home with Home Health Anticipated Discharge Date: Discharge Date: Expected LOS: Initial Reviewer: [id number] Initial Review Date: 11/04/2019 Generated: 11/13/19 3:08 pm Comments DCP- Discharge Planning Updated by [id number]: Marycruz Walker on 11/13/19 1:[address] PATIENT WILL BE DISCHARGING WITH [facility] TODAY DCP- Discharge Planning Updated by [id number]: Marycruz Walker on 11/13/19 12:[address] I SPOKE WITH PATIENT'S DAUGHTER ABOUT HER BEING DISCHARGED TODAY WITH HOME HEALTH AND PT. SHE IS GREATFUL FOR THIS AND DID NOT CARE WHAT COMPANY WE USED, SHE STATED THAT SHE HAS NOT HAD HH IN THE PAST. REFERRAL SENT TO [facility] DCP- Discharge Planning Updated by [email or web address]: Marycruz Walker on 11/12/19 6:[address] LATE ENTRY 1420 SPOKE WITH PATIENT ABOUT INPATIENT REHAB AND SHE DID NOT WANT TO GO, SHE WANTED TO GO HOME, BUT WAS AGREEABLE TO HOME HEALTH. SHE DID NOT KNOW THE COMPANY THAT SHE HAS USED INTHE PAST, BUT ASKED BE TO LOOK IT UP AND IS OK WITH THAT ONE. IMM SERVED AND EXPLAINED TO HER. COPY PLACED IN CHART. CM WILL CONTINUE TO ASSIST WITH DC PLANNING DCP- Discharge Planning Updated by [id number]: Marycruz Walker on 11/07/19 11:[address] Martha with Inpatient rehab called and stated that they would take her if she is agreeable and when she is stable with her mentation. DCP- Discharge Planning Updated by [id number]: Marycruz Walker on 11/07/19 11:[address] I HAVE ATTEMPTED TO CALL PATIENT'S DAUGHTER AND I HAVE NOT HAD ANY LUCK. PER PATIENTS NURSE HER DAUGHTER HAS NOT CALLED. LOOKING BACK ON THE PATIENTS LAST ADMISSION TO THE HOSPITAL (09/21/19) I WAS THE CM WHO SAW HER. FROM THOSE NOTES SHE WAS LIVING WITH HER SON'S MOTHER [place] AND WAS INDEPENDENT. SHE HAD REQUESTED MEALS ON WHEELS AND A REFERRAL WAS MADE AT THAT TIME. SHE HAS A WASLKER AND SHOWER CHAIR AT HOME. THE PATIENT IS NOT ABLE TO ANSWER QUESTIONS AT THIS TIME. CM WILL CONTIUE TO FOLLOW AND ASSIST NEEDED DCP- Discharge Planning Updated by [id number]: Natalya Melgar on 11/05/19 5:[address] CM has attempted multiple times today to call patient in room and her phone number and can't get her to answer. CM also called daughter number that's listed and number disconnected. CM tried to call son and didn't get answer. Patient is in isolation. CM will continue to follow and assist with discharge planning / needs. DCPIA - Discharge Planning Initial Assessment Updated by [id number]: Marycruz Walker on 11/07/19 12:06 pm * Is the patient Alert and Oriented? Yes * PCP SAXENA * [facility] * Preadmission Environment Home with Family * ADLs Independent * Equipment Rolling Walker Shower Chair * List name and contact numbers for known caregivers / representatives who currently or will assist patient after discharge: ANTONIO (DAUGHTER) [phone] * Community resources currently utilized Meals [employer] Wheels * Please name any agencies selected above. ?? [employer] Coverage Notice Reviewer: [id number] Martin Walker Notice Issued Date-Time: 11/12/2019 14:20 Notice Type: IM Discharge Notice Notice Delivered To: Patient Relationship to Patient: Yarding Supervisor Name: Delivery Method: HAND - Hand Delivered Kaylie Days: Prior Verbal Notification: Recipient Understood Notice: Yes Recipient Signature: Yes Med Rec Note Co-signed by Attending: Coverage Notice Comment: Reviewer: [id number] Martin Walker Notice Issued Date-Time: 11/12/2019 14:20 Notice Type: Patient Choice Letter Notice Delivered To: Patient Relationship to Patient: Yarding Supervisor Name: Delivery Method: HAND - Hand Delivered Kaylie Days: Prior Verbal Notification: Recipient Understood Notice: Yes Recipient Signature: Yes Med Rec Note Co-signed by Attending: Coverage Notice Comment: [facility] Last DP export: 11/13/19 12:42 p Patient Name: HEMANTH DUMONT Page [id number] at 1409 All edits/amendments must be made on the electronic document DICTATION DATE: 11/13/191407 GOLF SUPERINTENDENT: JERSON 11/13/191407 RPT#: [id number] DC DATE: STATUS: ADM IN [facility] [address] [place] [address] END OF REPORT
--- NOTE | 2019-11-14 09:00 | MORECARE ---
CASE MANAGEMENT DISCHARGE SUMMARY PATIENT: HEMANTH DUMONT UNIT: [id number] ADM DATE: 11/04/19 AGE: 69 : 54 SEX: F ROOM/BED: D.2224 AUTHOR: SOFIA,DOC PHYSICIAN: REFERRING PHYSICIAN: RYAN MARTINEZ MD DATE OF SERVICE: 11/14/19 Discharge Plan Patient Name: HEMANTH DUMONT Facility: [facility]:[place] : 1950 Planned Disposition: Home with Home Health Anticipated Discharge Date: Discharge Date: 11/13/2019 Expected LOS: Initial Reviewer: [id number] Initial Review Date: 11/04/2019 Generated: 11/14/19 10:00 am Comments DCP- Discharge Planning Updated by [id number]: Marycruz Walker on 11/13/19 1:[address] PATIENT WILL BE DISCHARGING WITH [facility] TODAY DCP- Discharge Planning Updated by [email or web address]: Marycruz Walker on 11/13/19 12:[address] I SPOKE WITH PATIENT'S DAUGHTER ABOUT HER BEING DISCHARGED TODAY WITH HOME HEALTH AND PT. SHE IS GREATFUL FOR THIS AND DID NOT CARE WHAT COMPANY WE USED, SHE STATED THAT SHE HAS NOT HAD HH IN THE PAST. REFERRAL SENT TO [facility] DCP- Discharge Planning Updated by [id number]: Marycruz Walker on 11/12/19 6:[address] LATE ENTRY 1420 SPOKE WITH PATIENT ABOUT INPATIENT REHAB AND SHE DID NOT WANT TO GO, SHE WANTED TO GO HOME, BUT WAS AGREEABLE TO HOME HEALTH. SHE DID NOT KNOW THE COMPANY THAT SHE HAS USED INTHE PAST, BUT ASKED BE TO LOOK IT UP AND IS OK WITH THAT ONE. IMM SERVED AND EXPLAINED TO HER. COPY PLACED IN CHART. CM WILL CONTINUE TO ASSIST WITH DC PLANNING DCP- Discharge Planning Updated by [id number]: Marycruz Walker on 11/07/19 11:[address] Martha with Inpatient rehab called and stated that they would take her if she is agreeable and when she is stable with her mentation. DCP- Discharge Planning Updated by [email or web address]: Marycruz Walker on 11/07/19 11:[address] I HAVE ATTEMPTED TO CALL PATIENT'S DAUGHTER AND I HAVE NOT HAD ANY LUCK. PER PATIENTS NURSE HER DAUGHTER HAS NOT CALLED. LOOKING BACK ON THE PATIENTS LAST ADMISSION TO THE HOSPITAL (09/21/19) I WAS THE CM WHO SAW HER. FROM THOSE NOTES SHE WAS LIVING WITH HER SON'S MOTHER IN [place] AND WAS INDEPENDENT. SHE HAD REQUESTED MEALS ON WHEELS AND A REFERRAL WAS MADE AT THAT TIME. SHE HAS A WASLKER AND SHOWER CHAIR AT HOME. THE PATIENT IS NOT ABLE TO ANSWER QUESTIONS AT THIS TIME. CM WILL CONTIUE TO FOLLOW AND ASSIST NEEDED DCP- Discharge Planning Updated by [email or web address]: Natalya Melgar on 11/05/19 5:[address] CM has attempted multiple times today to call patient in room and her phone number and can't get her to answer. CM also called daughter number that's listed and number disconnected. CM tried to call son and didn't get answer. Patient is in isolation. CM will continue to follow and assist with discharge planning / needs. DCPIA - Discharge Planning Initial Assessment Updated by [id number]: Marycruz Walker on 11/07/19 12:06 pm * Is the patient Alert and Oriented? Yes * PCP SAXENA * Pharmacy [place] * Preadmission Environment Home with Family * ADLs Independent * Equipment Rolling Walker Shower Chair * List name and contact numbers for known caregivers / representatives who currently or will assist patient after discharge: ANTONIO (DAUGHTER) [phone] * Community resources currently utilized Meals [employer] Wheels * Please name any agencies selected above. ?? [employer] Coverage Notice Reviewer: [id number] Martin Walker Notice Issued Date-Time: 11/12/2019 14:20 Notice Type: IM Discharge Notice Notice Delivered To: Patient Relationship to Patient: Medical Corps Officer Name: Delivery Method: HAND - Hand Delivered Kaylie Days: Prior Verbal Notification: Recipient Understood Notice: Yes Recipient Signature: Yes Med Rec Note Co-signed by Attending: Coverage Notice Comment: Reviewer: [id number] Martin Walker Notice Issued Date-Time: 11/12/2019 14:20 Notice Type: Patient Choice Letter Notice Delivered To: Patient Relationship to Patient: Medical Corps Officer Name: Delivery Method: HAND - Hand Delivered Kaylie Days: Prior Verbal Notification: Recipient Understood Notice: Yes Recipient Signature: Yes Med Rec Note Co-signed by Attending: Coverage Notice Comment: [facility] Last DP export: 11/13/19 1:08 p Patient Name: HEMANTH DUMONT Page [id number] at 0900 All edits/amendments must be made on the electronic document DICTATION DATE: 11/14/19899 [place] FLOORS INSTALLER: JERSON 11/14/19899 RPT#: [id number] DC DATE:11/13/19 STATUS: DIS IN [facility] [address] [place] [address] END OF REPORT
== END 2019-11-13 16:58 | disposition home health service (06) | DRG 871 ==
LOC: D.ER 18:55 → D.MS 20:33
PROVIDERS: Emergency Medicine; Internal Medicine Nephrology; ADMIT Family Medicine; ATTEND Family Medicine
DX: A41.9 Sepsis, unspecified organism (principal); G93.41 Metabolic encephalopathy; J09.X9 Influenza due to identified novel influenza A virus with other manifestations; E86.0 Dehydration; W19.XXXA Unspecified fall, initial encounter; J44.9 Chronic obstructive pulmonary disease, unspecified; E78.5 Hyperlipidemia, unspecified; E11.40 Type 2 diabetes mellitus with diabetic neuropathy, unspecified; K21.9 Gastro-esophageal reflux disease without esophagitis; F41.8 Other specified anxiety disorders; R91.8 Other nonspecific abnormal finding of lung field; M06.9 Rheumatoid arthritis, unspecified; M25.561 Pain in right knee; E87.6 Hypokalemia

== ENCOUNTER 2019-11-17 14:45 | Inpatient (IN) | payer MEDICARE ==
[~2019-11-17] VITALS: Ht 162.6 cm; Wt 73.6 kg
[2019-11-17 15:23] LABS: HEMATOCRIT 37.6 % (36.0-48.0); HEMOGLOBIN 11.2 g/dL (12-16); MCH 29.1 pg (26.0-34.0); MCHC 29.8 g/dL (31.0-37.0); MCV 97.7 fL (80.0-100.0); MEAN PLATELET VOLUME 11.5 fL (7.4-10.4); PLATELET COUNT 479 10x3/uL (130-400); RBC 3.85 10x6/uL (4.00-5.40); RDW 16.5 % (11.5-14.5); WBC 22.7 10x3/uL (4.8-10.8)
[2019-11-17 15:26] LABS: ANION GAP 26.3 mmol/L (8-16); CARBON DIOXIDE 13.1 mmol/L (21.0-32.0); CREATININE - SERUM 5.2 mg/dL (0.6-1.3); POTASSIUM - SERUM 5.4 mmol/L (3.5-5.1)
[2019-11-17 15:32] LABS: ALBUMIN 2.1 g/dL (3.4-5.0); BILIRUBIN - TOTAL 0.68 mg/dL (0.2-1.3)
[2019-11-17 15:55] LABS: LYMPHOCYTES 16 % (15-50); MONOCYTES 8 % (2-11); NEUTROPHILS 64 % (40-80); PLATELET ESTIMATE NORMAL
--- NOTE | 2019-11-17 16:37 | NUR ---
PT STOOL POSITIVE FOR OCCULT BLOOD. ADVISED DR. JORDAN AND YI FERRARI
[2019-11-17 17:38] LABS: BACTERIA MANY /hpf (NEGATIVE); BILIRUBIN NEGATIVE (NEGATIVE); EPITHELIAL CELLS 0-5 /hpf (0-5); GLUCOSE NEGATIVE (NEGATIVE); KETONE NEGATIVE (NEGATIVE); NITRITE NEGATIVE (NEGATIVE); RED CELLS - URINE 0-5 /hpf (0-5); SPECIFIC GRAVITY 1.015 (1.005-1.020); UROBILINOGEN NORMAL (NORMAL); WHITE CELLS - URINE >50 /hpf (NEGATIVE)
[2019-11-17 17:39] LABS: INR 1.12 (0.85-1.17); PROTIME 14.3 SECONDS (11.6-15.0)
[2019-11-17 17:40] LABS: APTT 30.1 SECONDS (22.8-39.4)
[2019-11-17 17:58] LABS: CREATINE KINASE 2036 UL (21-215); MAGNESIUM - SERUM 1.6 mg/dL (1.8-2.4)
[2019-11-17 18:07] VITALS: BP 106/62
--- NOTE | 2019-11-17 19:00 | NUR ---
REPORT RECEIVED. BEDSIDE SHIFT REPORT COMPLETE. PT CARE ASSUMED. PT LAYING IN BED RR EVEN AND UNLABORED ON RA. NO S/SX OF DISTRESS OBSERVED. PT IS LETHARGIC BUT AROUSABLE. ALERT TO SITUATION. PROVIDED LINEN CHANGE FOR INCONTINENCE. STOOL VERY RUNNY. PT C/O TO PAIN TO RIGHT SIDE AND STATED IT WAS FROM A FALL. SMALL WOUND ON RIGHT FA, CLEANED AND COVERED. BRUSING NOTED TO RIGHT THIGH. LARGE QUANTITY OF MEDICATION FOUND IN PTS BELONGING. SEALED, COUNTED, AND READY TO BE SENT TO PHARMACY. CALL LIGHT IN REACH. WILL CPOC.
[2019-11-17 20:00] VITALS: BP 108/60
--- NOTE | 2019-11-17 23:30 | NUR ---
NEW 22G PIV SITED TO LEFT FA X1 ATTEMPT. PT TOLERATED WELL. FLUIDS CONTINUE TO INFUSE ORDERED.
[2019-11-18] VITALS (12 sets, daily range): BP systolic 59–112; BP diastolic 47–99; BMI 25.0; BMI 24.9
[2019-11-18 05:21] LABS: BASOPHILS 0.2 % (0-2); EOSINOPHILS 0.1 % (0-7); HEMOGLOBIN 9.8 g/dL (12-16); IMMATURE GRANULOCYTES 3.1 % (0-5); MCH 28.8 pg (26.0-34.0); MCHC 30.6 g/dL (31.0-37.0); MEAN PLATELET VOLUME 11.9 fL (7.4-10.4); MONOCYTES 11.8 % (2-11); NEUTROPHILS 73.8 % (40-80); PLATELET COUNT 473 10x3/uL (130-400); RDW 16.2 % (11.5-14.5); WBC 17.5 10x3/uL (4.8-10.8)
[2019-11-18 05:22] LABS: MCV 94.1 fL (80.0-100.0)
--- NOTE | 2019-11-18 06:07 | NUR ---
PT REMAINS LETHARGIC BUT MORE AROUSABLE THIS AM. NO DISTRESS OBSERVED WILL CTM.
[2019-11-18 06:14] LABS: ALBUMIN 1.6 g/dL (3.4-5.0); ALKALINE PHOSPHATASE 112 U/L (30-120); ALT (SGPT) 34 U/L (10-68); BILIRUBIN - TOTAL 0.66 mg/dL (0.2-1.3); CARBON DIOXIDE 10.6 mmol/L (21.0-32.0); CHLORIDE - SERUM 98 mmol/L (98-107); CREATININE - SERUM 5.4 mg/dL (0.6-1.3); MAGNESIUM - SERUM 1.3 mg/dL (1.8-2.4); POTASSIUM - SERUM 4.9 mmol/L (3.5-5.1); PROTEIN - SERUM 5.9 g/dL (6.4-8.2); SODIUM 129 mmol/L (136-145); eGFR NON AFRICAN AMERICAN 8 mL/min (90-120)
[2019-11-18 06:16] LABS: CREATINE KINASE 1164 UL (21-215); GLUCOSE 128 mg/dL (74-106)
[2019-11-18 06:17] LABS: CKMB 13.9 U/L (0.0-3.6)
[2019-11-18 06:20] LABS: CALC OSMOLALITY 280 mosm/kg (275-300); UREA NITROGEN 69 mg/dL (7-18)
--- NOTE | 2019-11-18 08:57 | NUR ---
PT LETHARGIC, RESPONDS TO MODERATE STIMULATION. UNABLE TO WAKE UP FOR A FULL CONVERSATION. CURRENTLY DRY, PUREWICK IN PLACE BUT NO URINE PRODUCED YET. WILL COLLECT FOR UDA WHEN IT BECOMES AVALIBALE. CHECKING FREQUENTLY. DELIVERED BAG FULL OF PATIENTS HOME MEDICATIONS TO THE PHARMACY, COUNTED BY JESSICA HANDY. CL IN REACH, SRX2.
--- NOTE | 2019-11-18 14:48 | NUR ---
SPOKE TO PTS DAUGHTER, DAUGHTER STATES THAT EVER SINCE THE PTS LAST VISIT TO THE HOSPITAL THEY HAVE NOT BEEN ABLE TO GET HER TO EAT, DRINK, OR TAKE MEDICATIONS. STATES THAT THEY BELIEVE SHE MAY HAVE HAD A STROKE D/T THE PT WAS LETHARGIC BUT STILL ABLE TO GET UP. SHE HAD WENT TO THE BATHROOM, WHEN SHE SAT DOWN BOTH HER EYES CROSSED "WEIRDLY" AND THEN SHE COLLAPSED AND THEY CALLED 911. FAMILY ALSO INFORMED ME THE PT HAD BEEN DROPPED ON HER HEAD/SHOULDER AREA BY EMS THEY CARRIED HER FROM THE HOUSE. WILL INFORM THE DOCT.
[2019-11-18 16:32] LABS: UDS - AMPHET NEGATIVE QUAL (NEGATIVE); UDS - BARB NEGATIVE QUAL (NEGATIVE); UDS - BENZO POSITIVE QUAL (NEGATIVE); UDS - COCAINE NEGATIVE QUAL (NEGATIVE); UDS - OPIATE POSITIVE QUAL (NEGATIVE); UDS - PCP NEGATIVE QUAL (NEGATIVE); UDS - THC NEGATIVE QUAL (NEGATIVE)
--- NOTE | 2019-11-18 17:00 | NUR ---
WHILE PLACING NAJERA, DR. WISDOM ROUNDED. HE STATED HE BELIEVED PT WAS DETOXING FROM HER MEDICATIONS. I INFORMED HIM OF THE FAMILYS CONCERNS THAT IT MAY BE A SROKE, HE STATED HE DID NOT BELIEVE THAT WAS THE CASE. INFORMED OF PTS SEEMINGLY WEAKER RIGHT SIDE WHILE PATRICIA SOSA AND I CHANGED HER. HARD TO EVALUATE FOR WEAKNES D/T PTS INABILITY TO COOPERATE BUT WHEN ROLLING HER FOR CAHNGING, SHE SEEMS MORE FLACID ON THE RIGHT SIDE. CL IN REACH, SRX2.
--- NOTE | 2019-11-18 17:34 | NUR ---
I have reviewed this patient and I concur with the Shift Assessment completed by the Licensed Practical Nurse today this shift.
--- NOTE | 2019-11-18 17:49 | NUR ---
PT STATE UNCHANGED. HAD NOT URINIATED TODAY,PLACED NAJERA PER STERILE NURSING PROTOCOL (VERBAL OK FROM RENAL MACHINE SWEEPER BRUSH MAKER). PT HAD LESS THAN ONE MIL OF URINE COME OUT WITH NAJERA. WILL CONT. TO MONITOR FOR FURTHER CAHNGES. SPOKE AGAIN WITH PTS DAUGHTER.
--- NOTE | 2019-11-18 19:30 | NUR ---
REPORT RECEIVED. PT CARE ASSUMED. PT SEMI-FOWLERS, PURSED LIP BREATHING OBSERVED. FSBS 86, BP 71/55. NO OUTPUT SINCE NAJERA WAS PLACE ON PREVIOUS SHIFT. PT LETHARGIC AND ONLY MINIMALLY RESONSIVE TO PAINFUL STIMULI. PT UNABLE TO FOLLOW COMMANDS. INCREASED WEAKNESS NOTED TO RIGHT SIDE. RAPID RESPONSE CALLED R/T CHANGE IN LOC.
--- NOTE | 2019-11-18 20:00 | NUR ---
CALLED TO RAPID RESPONSE FOR PATIENT HAVING DECREASED LOC. PATIENT ONLY HAS GARBLED SPEECH, UNABLE TO OPEN EYES, WITHDRAWS FROM PAIN WITH L SIDE. R LOWER EXTREMITY FLACCIDITY AND ONLY SLIGHT TWITCH IN R UPPER EXTREM NOTED WITH PAINFUL STIMULI. PUPILS UNEQUAL IN REACTION L FIXED WITH 6/6. L PUPIL IRREGULAR.
--- NOTE | 2019-11-18 21:50 | NUR ---
ATTEMPTED TO CONTACT PATIENTS FAMILY REGARDING PT BEING TRANSFERED TO ICU. THE CONTACT NUMBERS ON PTS PROFILE FOR STEPHANIE(SON) AND ANTONIO(DAUGHTER) WORKED.
--- NOTE | 2019-11-18 21:56 | NUR ---
PTS ELIZABETH GONSALEZ ([phone]) NOTIFED OF PTS TRANSFER TO ICU.
--- NOTE | 2019-11-18 23:20 | NUR ---
PT REPORT RECEIVED ON PT, ASSESSMENT SHOWS PATIENT IS LETHARGIC BUT WILL HAVE SOME BRIEF MOMENTS RESPONSE TO PAIN, PT'S EOM LEFT TO RIGHT SHIFTING WITH PUPIL RESPONSE SLUGISH WITH RIGHT>LEFT, PT WITHDRAWS BILAT LOWER EXT TO PAIN, AND RESPONDS TO PAIN ON RIGHT HAND WITH NO MOVEMENT, PAINFUL WITHDRAWING OF LEFT HAND. IV STARTED TO KEFT FA X 3 ATTEMTPS, B/P STILL TRENDING LOW, WILL GIVE REMAINDER OF IVF AND MONITOR FOR CHANGES
[2019-11-19] VITALS (82 sets, daily range): BP systolic 53–192; BP diastolic 33–122; Ht 162.6 cm; Wt 73.6 kg
--- NOTE | 2019-11-19 01:35 | NUR ---
DR WISDOM CALLED ABOUT LOW B/P NEW ORDERS NOTED
--- NOTE | 2019-11-19 03:00 | NUR ---
PT REASSESSMWENT COMPLETED AT THIS TIME, B/P STILL STAYING LOW, IVF GOING, WILL MONITOR FOR ADDITIONAL INTERVENTIONS NEEDED
--- NOTE | 2019-11-19 05:55 | NUR ---
DR WISDOM CALLED AND UPDATED ON PATIENTS COND. NEW ORDERS NOTED
--- NOTE | 2019-11-19 07:00 | NUR ---
0700 BEDSIDE REPORT RECEIVED FROM ARCHIE SHARRI BOOTH
[2019-11-19 07:43] LABS: MCH 28.3 pg (26.0-34.0); MCHC 30.8 g/dL (31.0-37.0); MEAN PLATELET VOLUME 11.4 fL (7.4-10.4); RDW 16.1 % (11.5-14.5); WBC 13.9 10x3/uL (4.8-10.8)
[2019-11-19 07:44] LABS: HEMATOCRIT 22.7 % (36.0-48.0); MCV 91.9 fL (80.0-100.0); PLATELET COUNT 340 10x3/uL (130-400); RBC 2.47 10x6/uL (4.00-5.40)
[2019-11-19 08:08] LABS: LYMPHOCYTES 5 % (15-50); MONOCYTES 8 % (2-11); NEUTROPHILS 54 % (40-80); PLATELET ESTIMATE NORMAL
[2019-11-19 08:30] LABS: BILIRUBIN - TOTAL 0.82 mg/dL (0.2-1.3); CREATININE - SERUM 4.8 mg/dL (0.6-1.3)
--- NOTE | 2019-11-19 08:30 | NUR ---
0830 NEW ORDERS NOTED FROM NEPHROLOGY STOPPED D5 1/2 NS INCREASED BICARB TO 150 ML/HOUR STRARTED 4 GRAMS MG+ PER LYTES PROTOCOL
[2019-11-19 08:36] LABS: ALBUMIN 2.2 g/dL (3.4-5.0); ANION GAP 25.2 mmol/L (8-16); CARBON DIOXIDE 14.9 mmol/L (21.0-32.0); POTASSIUM - SERUM 4.1 mmol/L (3.5-5.1); PROTEIN - SERUM 4.4 g/dL (6.4-8.2)
[2019-11-19 08:37] LABS: MAGNESIUM - SERUM 0.9 mg/dL (1.8-2.4)
[2019-11-19 08:38] LABS: CALCIUM 5.7 mg/dL (8.5-10.1)
[2019-11-19 09:13] LABS: CKMB 28.9 U/L (0.0-3.6)
[2019-11-19 09:17] LABS: CREATINE KINASE 2079 UL (21-215)
--- NOTE | 2019-11-19 09:42 | NUR ---
0942 STARTED LEVOPHED AT 5MCG/MIN AND BEGAN TO TITRATE SEE IV FLOW SHEET INITIATED FREQUENT VITAL SIGNS PER PROTOCOL
--- NOTE | 2019-11-19 10:28 | NUR ---
Nutrition follow-up: Pt now in ICU s/p rapid response Pt NPO per surgery Labs reviewed Pt has had poor po intake RDN following.
--- NOTE | 2019-11-19 11:31 | NUR ---
1131 DR COE PLACED TRIALYSIS TO RIGHT IJ ORDERED STAT CXR FOR PLACEMENT. DR COE LOOKED AT CXR AND STATED OK TO USE
--- NOTE | 2019-11-19 11:45 | NUR ---
1145 STARTED 1ST UNIT PRBC FOR HGB OF 7.0
--- NOTE | 2019-11-19 14:40 | NUR ---
1440 STARTED 2ND OF 2 UNITS PRBC INFUSING TO TRIALYSIS CATH
--- NOTE | 2019-11-19 19:00 | NUR ---
PT ASSESSMENT COMEPLETED AT THIS TIME, NO CHANEGS NOTED FROM NURSE REPORT. PT ON LEVOPHED DRIP AND B/P REMAINING STABLE AT THIS TIME, WILL MONITOR AND TITRATE NEEDED
--- NOTE | 2019-11-19 19:27 | NUR ---
1755 SMALL LIQUID STOOL SPECIMEN SENT TO LAB FOR TESTING
--- NOTE | 2019-11-19 21:03 | NUR ---
FSBS 185 AT THIS TIME AND TREATED PER SS, VSS WILL MONITOR FOR CHANGES
--- NOTE | 2019-11-19 23:48 | NUR ---
PT REASSESSMENT COMPLETED AT THIS TIME, NO CHANGES NOTED FROM PREVIOUS EXAM, VSS ON LEVOPHED DRIP, WILL MONITOR AND TITRATE NEEDED
[2019-11-20] VITALS (36 sets, daily range): BP systolic 114–151; BP diastolic 63–105
--- NOTE | 2019-11-20 01:00 | NUR ---
PT MOVING LEFT ARM UP AND DOWN, VSS, MONITORING B/P AND TITRATING LEVOPHED NEEDED
--- NOTE | 2019-11-20 03:00 | NUR ---
PT REASSESSMENT COMPLETED AT THIS TIME, NO CHANGES NOTED FROM PREVIOUS EXAM, WILL MONITOR FOR CHANGES
[2019-11-20 05:12] LABS: BASOPHILS 0.2 % (0-2); EOSINOPHILS 0.1 % (0-7); IMMATURE GRANULOCYTES 0.8 % (0-5); LYMPHOCYTES 2.4 % (15-50); MCH 29.2 pg (26.0-34.0); MCHC 33.4 g/dL (31.0-37.0); MEAN PLATELET VOLUME 11.7 fL (7.4-10.4); MONOCYTES 6.1 % (2-11); NEUTROPHILS 90.4 % (40-80); PLATELET COUNT 275 10x3/uL (130-400); RDW 16.2 % (11.5-14.5); WBC 16.5 10x3/uL (4.8-10.8)
[2019-11-20 05:22] LABS: BILIRUBIN - TOTAL 2.36 mg/dL (0.2-1.3); CREATININE - SERUM 4.2 mg/dL (0.6-1.3); MAGNESIUM - SERUM 1.9 mg/dL (1.8-2.4); PROTEIN - SERUM 4.9 g/dL (6.4-8.2)
[2019-11-20 05:27] LABS: HEMOGLOBIN 10.6 g/dL (12-16); RBC 3.63 10x6/uL (4.00-5.40)
[2019-11-20 05:28] LABS: HEMATOCRIT 31.7 % (36.0-48.0); MCV 87.3 fL (80.0-100.0)
--- NOTE | 2019-11-20 05:30 | NUR ---
PT GIVEN CHG BATH WITH COMPLETE LINEN CHANGES AT THIS TIME
[2019-11-20 06:24] LABS: ANION GAP 17.4 mmol/L (8-16); CARBON DIOXIDE 24.8 mmol/L (21.0-32.0); POTASSIUM - SERUM 3.2 mmol/L (3.5-5.1)
[2019-11-20 06:27] LABS: CALCIUM 5.8 mg/dL (8.5-10.1)
--- NOTE | 2019-11-20 08:49 | NUR ---
0700 BEDSIDE REPORT RECEIVED FROM OUTGOING NURSE ASSESSMENT COMPLETE ORAL AND DACIAL CARE PROVIDED NEW ORDER FOR C-DIFF STOOL NOTED COLLECTED SPECIMEN AND SENT TO LAB REPOSITIONED ON RIGHT SIDE USING PILLOW SUPPORT
--- NOTE | 2019-11-20 10:18 | NUR ---
0900 REPOSITIONED IN BED PATIENT LIFTED HER LEFT ARM TO HER FACE PT WOULD NOT MOVE AGAIN WHEN ASKED
--- NOTE | 2019-11-20 11:00 | NUR ---
1100 PATIENT REMAINED STILL WHILE RN SHAVING HIM APPEARED TO RELAX AND COOPERATE ANESTHESIA REVIEWING CHART
--- NOTE | 2019-11-20 13:09 | EC ---
PATIENT:HEMANTH DUMONT DATE OF SERVICE: 11/17/19 SEX: F MEDICAL RECORD: [id number] DATE OF : 54 LOCATION:D.[facility] D.230 AGE OF PATIENT: 69 ADMISSION DATE: 11/17/19 REFERRING PHYSICIAN: INTERPRETING PHYSICIAN: RYAN FRAGA MD ECHOCARDIOGRAM REPORT ECHO CHARGES 5 ECHO LIMITED Date: 11/19/19 1 DOPPLER ECHO COLOR FLOW 2 DOPPLER ECHO PULSE CLINICAL DIAGNOSIS: WEAKNESS/FEVER H/O HTN/COPD/SEPSIS ECHOCARDIOGRAPHIC MEASUREMENTS (adult normal given) AC root (d.<3.7cm) 0 cm LV Septum d (<1.2 cm> 0 cm Valve Excursion 0 cm LV Septum (systole) 0 cm Left Atria (s.<4.0cm> 0 cm LVPW d(<1.2cm) 0 cm RV (d.<2.3cm) 0 cm LVPW (sytole) 0 cm LV diastole(<5.6CM) 0 cm MV E-F(>70mm/sec) 0 cm LV systole 0 cm LVOT Diameter 0 cm MV exc.(>10mm) 0 cm Est.ejection fraction (50-75%) % DOPPLER: LVIT 0 cm/sec A 0 cm/sec E 0 cm/sec LA 0 cm/sec RVSP 51.0 mmHg LVOT 0 cm/sec AOP1/2T 0 m/s Asc. Ao 0 cm/sec RVOT 0 cm/sec RA 0 cm/sec PA 0 cm/sec AV Gradient Peak 0 mmHg AV Mean 0 mmHg AV Area 0 cm MV Gradient Peak 0 mmHg MV Mean 0 mmHg MV Area 0 cm COMMENTS: LIMITED STUDY (2-D,COLOR,DOPPLER) COMPLETE ECHO DONE ON 09/18/19 Assembler Insulator: 1 STEVE CALLE Shirt Marker: 3 Dr. Sanford TAPE# PACS Pericardial Effusion N DATE OF SERVICE: This is a limited study includes 2D echo, color flow, and Doppler. Grossly LVH appears present. LV internal dimension appears normal. LV is mildly globally hypokinetic. The EF minimally reduced at 40% to 45%. Aortic valve is tricuspid. No significant stenosis by Doppler interrogation. Left atrium appears normal grossly. Mitral valve shows good excursion. Mild MR. Right-sided chambers appear upper limits of normal mildly dilated. Moderate to severe TR. Pulmonary artery pressure is estimated greater than or equal to 51 ECHOCARDIOGRAM REPORT [id number] TIMHEMANTH mmHg via the continuity equation. TRANSINT:[id number] Voice Confirmation ID: [id number] DOCUMENT ID: [id number] RYAN FRAGA MD at 1309 CC: [id number] DICTATION DATE: 11/19/19 1313 POOL SERVICER: 11/19/19 1429 ADM IN [place] [id number] [place] [id number]
--- NOTE | 2019-11-20 16:11 | NUR ---
1100 REPOSITIONED ON BACK APPLIED HEEL PROTECTORS TO NEAL FEET BRUISING NOTED TO BOTH HEELS
--- NOTE | 2019-11-20 16:13 | NUR ---
1300 REPOSITIONED TO RIGHT SIDE NOT FOLLOWING INSTRUCTIONS . DOES RANDOMLY REACH TO FACE WITH HER LEFT HAND NO MOVEMENT TO RIGHT ARM NOW BLE
--- NOTE | 2019-11-20 16:17 | NUR ---
1500 UPDATED ARTIE, GRANDDAUGHTER ON PTS PROGRESS COSISTING OF BABY STEPS IN THE RIGHT DIRECTION
--- NOTE | 2019-11-20 17:45 | MORECARE ---
CASE MANAGEMENT DISCHARGE SUMMARY PATIENT: HEMANTH DUMONT UNIT: [id number] ADM DATE: 11/17/19 AGE: 69 : 52 SEX: F ROOM/BED: D.2307 AUTHOR: TALYA BLACK PHYSICIAN: REFERRING PHYSICIAN: TAMI WISDOM MD DATE OF SERVICE: 11/20/19 Discharge Plan Patient Name: HEMANTH DUMONT [facility] [facility] 1950 Planned Disposition: Anticipated Discharge Date: Discharge Date: Expected LOS: Initial Reviewer: [email or web address] Initial Review Date: 11/20/2019 Generated: 11/20/19 6:44 pm DCPIA - Discharge Planning Initial Assessment Updated by [email or web address]: Natalya Melgar on 11/20/19 5:43 pm * Is the patient Alert and Oriented? No * PCP SAXENA * Pharmacy [facility] * Preadmission Environment Home Alone * ADLs Independent * Equipment Rolling Walker Shower Chair * List name and contact numbers for known caregivers / representatives who currently or will assist patient after discharge: NicoletteMASSIMO Salazar [facility] - [phone] ?? * Verbal permission to speak to the caregivers and representatives has been obtained from the patient. Yes * Community resources currently utilized Home Health * Please name any agencies selected above. [facility] * Additional services required to return to the preadmission environment? No * Can the patient safely return to the preadmission environment? Yes * Has this patient been hospitalized within the prior 30 days at any hospital? Yes Patient Name: HEMANTH DUMONT Page [id number] at 1746 All edits/amendments must be made on the electronic document DICTATION DATE: 11/20/191743 SEAMLESS TUBE DRAWER: JERSON 11/20/191743 RPT#: [id number] DC DATE: STATUS: ADM IN [facility] [address] [place] [address] END OF REPORT
--- NOTE | 2019-11-20 18:05 | MORECARE ---
CASE MANAGEMENT DISCHARGE SUMMARY PATIENT: HEMANTH DUMONT UNIT: [id number] ADM DATE: 11/17/19 AGE: 69 : 52 SEX: F ROOM/BED: D.2307 AUTHOR: SOFIA,DOC PHYSICIAN: REFERRING PHYSICIAN: TAMI WISDOM MD DATE OF SERVICE: 11/20/19 Discharge Plan Patient Name: HEMANTH DUMONT Facility: [facility]:[place] : 1950 Planned Disposition: Anticipated Discharge Date: Discharge Date: Expected LOS: Initial Reviewer: [email or web address] Initial Review Date: 11/20/2019 Generated: 11/20/19 7:04 pm Comments DCP- Discharge Planning Updated by [email or web address]: Natalya Melgar on 11/20/19 5:[address] Patient Name: HEMANTH DUMONT Admission Status: ER Accout number: [id number] Admission Date: 11-17-2019 : 1950 Admission Diagnosis:DIARRHEA, UNSPECIFIED Attending: TAMI WISDOM Current LOS: 3 Anticipated DC Date: Planned Disposition: Primary Insurance: MEDICARE A & B Discharge Planning Comments: Patient is lethargic and unable to answer any of CM discharge planning questions. CM attempted to call ruth Hunter but the number is disconnected. CM looked back at previous admission and patient has a walker and shower chair and lived with her son's mother n law. She was set up with [facility] last admission this month. CM can see that she was trying to get meals on wheels set up. CM will get CARLITOS for once able to contact family or patient is more oriented. CM will continue to follow and assist as needed with discharge planning / needs. Test Manager: Natalya Melgar DCPIA - Discharge Planning Initial Assessment Updated by [id number]: Natalya Melgar on 11/20/19 5:43 pm * Is the patient Alert and Oriented? No * PCP SAXENA * Pharmacy [facility] * Preadmission Environment Home Alone * ADLs Independent * Equipment Rolling Walker Shower Chair * List name and contact numbers for known caregivers / representatives who currently or will assist patient after discharge: ANA GÉNESIS - RUTH - [phone] ?? * Verbal permission to speak to the caregivers and representatives has been obtained from the patient. Yes * Community resources currently utilized Home Health * Please name any agencies selected above. [facility] * Additional services required to return to the preadmission environment? No * Can the patient safely return to the preadmission environment? Yes * Has this patient been hospitalized within the prior 30 days at any hospital? Yes Last DP export: 11/20/19 4:45 p Patient Name: HEMANTH DUMONT Page [phone] at 1805 All edits/amendments must be made on the electronic document DICTATION DATE: 11/20/191803 DIRECTOR OF HOTEL: JERSON 11/20/191803 RPT#: [id number] DC DATE: STATUS: ADM IN [facility] [address] [place] [address] END OF REPORT
--- NOTE | 2019-11-20 18:28 | NUR ---
1700 OPENS EYES TO VOICE WILL NOT FOLLOW INSTRUCTIONS
--- NOTE | 2019-11-20 19:27 | NUR ---
SUPINE IN ROOM. BRIEF EYE OPENING UPON CONTINUED VERBAL STIMULATION. VS STABLE. NO NEEDS VOICED AT THIS TIME, CTM.
--- NOTE | 2019-11-20 22:30 | NUR ---
ARM BANDS TO RIGHT WRIST APPEAR TIGHT AND SURROUNDING SKIN IS BRUISED. REAPPLIED ARM BAND TO LEFT WRIST LOOSELY, NEW BLOOD BAND ORDERED AND APPLIED TO LEFT WRIST LOOSELY. . 22G IV TO LEFT FOREARM HAS NO BLOOD RETURNE AND IS DIFFICULT TO FLUSH. DCd WITH CATH INTACT. PT TURNED TO BACK. VS STABLE, CTM.
[2019-11-21] VITALS (29 sets, daily range): BP systolic 82–161; BP diastolic 57–130
--- NOTE | 2019-11-21 00:30 | NUR ---
REASSESSMENT OF TEMP AFTER REMOVAL OF COVERS AND ADJUSTMENT OF THERMOSTAT. 99.1F AXILLARY. CTM.
[2019-11-21 04:07] LABS: HEMATOCRIT 35.5 % (36.0-48.0); HEMOGLOBIN 11.6 g/dL (12-16); MCH 28.9 pg (26.0-34.0); MCHC 32.7 g/dL (31.0-37.0); MCV 88.5 fL (80.0-100.0); MEAN PLATELET VOLUME 11.7 fL (7.4-10.4); PLATELET COUNT 211 10x3/uL (130-400); RBC 4.01 10x6/uL (4.00-5.40); RDW 16.5 % (11.5-14.5); WBC 25.2 10x3/uL (4.8-10.8)
[2019-11-21 04:15] LABS: ALBUMIN 1.8 g/dL (3.4-5.0); BILIRUBIN - TOTAL 1.33 mg/dL (0.2-1.3); CARBON DIOXIDE 27.9 mmol/L (21.0-32.0); CREATININE - SERUM 3.6 mg/dL (0.6-1.3); MAGNESIUM - SERUM 1.8 mg/dL (1.8-2.4); POTASSIUM - SERUM 3.9 mmol/L (3.5-5.1)
[2019-11-21 04:23] LABS: CALCIUM 6.1 mg/dL (8.5-10.1)
[2019-11-21 04:30] LABS: LYMPHOCYTES 7 % (15-50); MONOCYTES 1 % (2-11); NEUTROPHILS 77 % (40-80); PLATELET ESTIMATE NORMAL
--- NOTE | 2019-11-21 06:32 | NUR ---
I have reviewed this patient and I concur with the Shift Assessment completed by the Licensed Practical Nurse today this shift.
--- NOTE | 2019-11-21 07:00 | NUR ---
REC'D REPORT AND RESUMED CARE, GRIMACES TO TACTILE STIMULI, VSS, O2 VIA NC AT 3L, RIGHT IJ WITH NS WITH 20CL INFUSING AT 75 CC/HR, NAJERA TO GRAVITY WITH DARK CONCENTRATED DRAINAGE TO BAG, ASSESSMENT COMPLETED PER FLOWSHEET, REPOSTIONED TO LEFT SIDE
--- NOTE | 2019-11-21 07:30 | NUR ---
PC FROM MADELYN IN LAB, + FOR ESBL IN URINE, CONTACT ISOLATION INITIATED
--- NOTE | 2019-11-21 08:09 | NUR ---
DR BRAVO AT BEDSIDE, NEW ORDER FOR GIVEN TO DC IVF, RESTART LEVAPHED, AND GIVENDIURETIC AT NOON
--- NOTE | 2019-11-21 09:11 | NUR ---
Nutrition follow-up: Pt unresponsive Consistent CHO diet ordered; however, pt is not eating. Labs reviewed Wt: 185# Recommend starting TF of Osmolite 1.0 surinder @ 25 ml/hr with increase to goal rate of 50 mlo/hr if medically feasible to place NGT. RDN following.
[2019-11-21 09:19] LABS: CREATINE KINASE 762 UL (21-215)
--- NOTE | 2019-11-21 16:00 | NUR ---
REPOSITIONED FOR COMFORT, NO NEEDS NOTED,
--- NOTE | 2019-11-21 18:12 | NUR ---
REPOSITIONED FOR COMFORT, NO OTHER NEEDS NOTED, WILL CON'T TO MONITOR
--- NOTE | 2019-11-21 20:00 | NUR ---
PT LABORED BREATHING NOTED. PT UNRESPONSIVE TO STIMULI. O2 SAT DECREASING. DR WISDOM AND FRANCO PAGED MULTIPLE TIMES. PT LUNGS COURSE AND CRACKLES NOTED. BREATHING BECOMING MORE AND MORE LABORED. DAUGHTER, BROOKE, CALLED AND NOTIFIED OF SITUATION. KIRK HYATT CALLED AT 0810. SEE CODE BLUE SHEET. 7.5 ETT NOTED 24 AT THE LIP. RESPITORY DEEP SUCTION AND LARGE MUCUS PLUG NOTED. O2 SAT INCREASE TO 99%. HEART RATE DECREASE FROM 130 TO 105. STILL IN AFIB. 0820 DR WISDOM CALLED BACK. ORDERS RECIEVED TO GIVE SCHEDUALED DIG NOW, 2.5 OF BUMEX. GIVE LOPRESSOR, VENT BUNDLE AND CONSULT DR RODRIGUEZ. DR RODRIGUEZ PAGED MULTIPLE TIMES WITH NO RESPONSE. VITAL STABLE AT THIS TIME. PT REMAINS UNRESPONSIVE. WILL CONT POC.
--- NOTE | 2019-11-21 23:19 | NUR ---
PT AROUSES TO VERBAL STIMULI BY OPENING HER EYES. PT NOT FOLLOWING SIMPLE COMMANDS SUCH SQUEEZING MY HAND WHENEVER PROMPTED. WILL CONT POC.
[2019-11-22] VITALS (23 sets, daily range): BP systolic 90–175; BP diastolic 61–115
[2019-11-22 05:34] LABS: ALBUMIN 1.8 g/dL (3.4-5.0); ALKALINE PHOSPHATASE 168 U/L (30-120); ALT (SGPT) 75 U/L (10-68); BILIRUBIN - TOTAL 0.98 mg/dL (0.2-1.3); CALC OSMOLALITY 308 mosm/kg (275-300); CARBON DIOXIDE 27.7 mmol/L (21.0-32.0); CHLORIDE - SERUM 100 mmol/L (98-107); CKMB 1.5 U/L (0.0-3.6); CREATINE KINASE 215 UL (21-215); CREATININE - SERUM 3.1 mg/dL (0.6-1.3); GLUCOSE 262 mg/dL (74-106); MAGNESIUM - SERUM 2.3 mg/dL (1.8-2.4); POTASSIUM - SERUM 3.4 mmol/L (3.5-5.1); PROTEIN - SERUM 5.1 g/dL (6.4-8.2); SODIUM 142 mmol/L (136-145); UREA NITROGEN 60 mg/dL (7-18); eGFR NON AFRICAN AMERICAN 16 mL/min (90-120)
[2019-11-22 05:36] LABS: BASOPHILS 0.2 % (0-2); EOSINOPHILS 0 % (0-7); HEMATOCRIT 35.8 % (36.0-48.0); HEMOGLOBIN 11.9 g/dL (12-16); IMMATURE GRANULOCYTES 1.9 % (0-5); LYMPHOCYTES 5.5 % (15-50); MCH 29.1 pg (26.0-34.0); MCHC 33.2 g/dL (31.0-37.0); MCV 87.5 fL (80.0-100.0); MEAN PLATELET VOLUME 11.6 fL (7.4-10.4); MONOCYTES 6.2 % (2-11); NEUTROPHILS 86.2 % (40-80); PLATELET COUNT 138 10x3/uL (130-400); RBC 4.09 10x6/uL (4.00-5.40); RDW 16.6 % (11.5-14.5); WBC 23.8 10x3/uL (4.8-10.8)
--- NOTE | 2019-11-22 06:37 | NUR ---
PT CALM AND COOPERATIVE. PT NOW ABLE TO ANSWER YES AND NO QUESTIONS. VSS. WILL CONT POC.
--- NOTE | 2019-11-22 19:00 | NUR ---
REPORT REC'D FROM DAY RN, PT'S CARE ASSUMED. ASSESSMENT COMPLETED PER FLOWHSEETS. PT SEDATED ON VENT AROUSES WITH VOICES, CONT SEDATION PER ORDER. AFIB CONT ON MONITOR WITH HR AT 83, LUNG SOUNDS DIMINSHED TO LLB, UNLABORED. PPP. REPOSITIONED FOR COMFORT. HOB UP. SIDE RAILS UP. WAGES IN USE FOR SUPPORT. WILL CONT TO MONITOR.
--- NOTE | 2019-11-22 21:00 | NUR ---
FSBS 216, COVERED WITH HUMOLOG PER S/S PER ORDER. CPOC.
--- NOTE | 2019-11-22 23:00 | NUR ---
REASSESSMENT COMPLETED. SEE FLOWSHEETS FOR ALL FINDIGNS. PT SEDATED ON VENT, WITHOUT SIGNS OF DISTRESS. VSS. NO ACUTE CHANGES NOTED. CPOC.
[2019-11-23] VITALS (23 sets, daily range): BP systolic 106–164; BP diastolic 62–109
--- NOTE | 2019-11-23 03:00 | NUR ---
REASSESSMENT COMPLETED. SEE FLOWSHEETS FOR ALL FINDINGS. PT INCONTINENT OF LARGE LOOSE STOOL. COMPLETED CHG BATH. SKIN CARE PROVIDED. LINEN AND GOWN CHANGED. VSS. CPOC.
--- NOTE | 2019-11-23 03:00 | NUR ---
REASSESSMENT COMPLETED. SEE FLOWSHEETS FOR ALL FINDINGS. PT RESTING WITHOUT SIGNS OF DISTRESS, WITH SUDDENLY AWAKES START SCREAMING AND USING VERBALY ABUSSIVE WORDS, THEN GOES TO SLEEP./ SITTER REMAINS AT BEDSIDE. CPOC.
[2019-11-23 05:31] LABS: BASOPHILS 0.2 % (0-2); EOSINOPHILS 0 % (0-7); HEMATOCRIT 33.3 % (36.0-48.0); HEMOGLOBIN 10.6 g/dL (12-16); IMMATURE GRANULOCYTES 3.2 % (0-5); LYMPHOCYTES 6.3 % (15-50); MCH 28.6 pg (26.0-34.0); MCHC 31.8 g/dL (31.0-37.0); MONOCYTES 6.6 % (2-11); NEUTROPHILS 83.7 % (40-80); RBC 3.71 10x6/uL (4.00-5.40); RDW 16.7 % (11.5-14.5); WBC 18.6 10x3/uL (4.8-10.8)
[2019-11-23 05:34] LABS: MCV 89.8 fL (80.0-100.0); PLATELET COUNT 106 10x3/uL (130-400)
[2019-11-23 05:38] LABS: CALCIUM 7.8 mg/dL (8.5-10.1); CARBON DIOXIDE 32.5 mmol/L (21.0-32.0); CREATININE - SERUM 2.6 mg/dL (0.6-1.3)
[2019-11-23 05:43] LABS: POTASSIUM - SERUM 2.5 mmol/L (3.5-5.1)
--- NOTE | 2019-11-23 05:47 | NUR ---
K LEVEL 2.5, 20MEG ORAL SOLU GIVEN PER OGT PER ELECTROLYTE PROTOCOL, FOLLOWED FOR 2 DOSES Q2HR. CPOC.
--- NOTE | 2019-11-23 12:31 | NUR ---
Nutrition Consult/Follow-up: Pt intubated/sedated. Received consult to begin TF. Wt: 173# (11/22); 185.1# (11/20); 145.5# (11/17); noted I/Os (-3672 mL on 11/21) Last BM: 11/22 Labs noted: K+ 2.5, Glu 250, Ca 7.8 Meds noted: Protonix, Solumedrol, Diprivan, Albumin, Levophed, KCl, Humalog -Start Pulmocare @ 15 mL/hr and increase by 10 mL/hr q 6 hrs to goal rate of 40 mL/hr + H2O flushes 25 mL q hr. -RD following. Thanks for the consult!
--- NOTE | 2019-11-23 21:20 | NUR ---
PT DAUGHTER CALLED, PASSWORD PROVIDED, UPDATE GIVEN AND ALL QUESTIONS ANSWERED.
[2019-11-24] VITALS (23 sets, daily range): BP systolic 114–183; BP diastolic 63–113
--- NOTE | 2019-11-24 01:16 | NUR ---
PT INCONTINENT OF MODERATE AMT OF LIQUID BROWN STOOL. COMPLETE CHG BATH AND LINEN CHANGE DONE, VSS.
--- NOTE | 2019-11-24 03:15 | NUR ---
REASSESSMENT PER FLOWSHEET, NO ACUTE CHANGES NOTED AT THIS TIME. PT POSITIONED FOR COMFORT, ORAL CARE AND SUCTIONING PROVIDED. VSS
--- NOTE | 2019-11-24 04:47 | NUR ---
POTASSIUM NOTED ON AM ABG'S, WAITING ON SERUM LABS. DECREASED TO 30% FIO2 PER RT.
[2019-11-24 06:46] LABS: HEMATOCRIT 32.1 % (36.0-48.0); MCH 28.7 pg (26.0-34.0); MCHC 31.2 g/dL (31.0-37.0); PLATELET COUNT 80 10x3/uL (130-400); RBC 3.49 10x6/uL (4.00-5.40); RDW 17.2 % (11.5-14.5)
[2019-11-24 07:00] LABS: BILIRUBIN - TOTAL 1.17 mg/dL (0.2-1.3); CARBON DIOXIDE 31.3 mmol/L (21.0-32.0); CREATININE - SERUM 1.9 mg/dL (0.6-1.3)
[2019-11-24 07:01] LABS: ALBUMIN 2.3 g/dL (3.4-5.0); ANION GAP 13.6 mmol/L (8-16); POTASSIUM - SERUM 2.9 mmol/L (3.5-5.1)
[2019-11-24 07:02] LABS: LYMPHOCYTES 13 % (15-50); NEUTROPHILS 87 % (40-80)
[2019-11-24 07:03] LABS: PLATELET ESTIMATE DECREASED
--- NOTE | 2019-11-24 08:17 | NUR ---
LYING IN BED ON VENT AT THIS TIME. VSS. NO ACUTE DISTRESS NOTED. PT OPENS EYES WHEN SPOKEN TO AND WITHDRAWS TO DISCOMFORT. TURNED Q2H, ORAL CARE PROVIDED Q2H. WILL CONTINUE PLAN OF CARE.
--- NOTE | 2019-11-24 09:00 | NUR ---
ISABELLA DURONN FOR RENAL, NOTIFIED OF LOW POTASSIUM LEVEL OF 2.9, SHE STATED TO TREAT PER ELECTROLYTE PROTOCOL. ALSO NOTED PTS BLOOD SUGAR WAS 303 AND HAD BEEN TRENDING 200-300, ORDER RECIEVED TO INCREASE SLIDING SCALE RESISTANCE TO INTERMEDIATE Q6H. VSS. WILL CONTINUE PLAN OF CARE.
--- NOTE | 2019-11-24 09:42 | NUR ---
PT PLACED ON SPONTANEOUS MODE PS10 PEEP [address] RODRIGUEZ NO SOB NOTED SPO2 98%
[2019-11-24 11:08] LABS: ACID FAST SMEAR Negative (()); AFB SPECIMEN PROCESSING Concentration (())
--- NOTE | 2019-11-24 11:45 | NUR ---
TOLERATING CPAP TRIAL ON VENT AT THIS TIME. PT CALM. VSS. NO ACUTE DISTRESS NOTED. TURNED Q2H. ORAL CARE PROVIDED Q2H. WILL CONTINUE PLAN OF CARE.
--- NOTE | 2019-11-24 12:46 | NUR ---
DR RODRIGUEZ NOTIFIED OF ABG RESULTS.
--- NOTE | 2019-11-24 13:18 | NUR ---
PER TELEPHONE ORDER DR RODRIGUEZ EXTCAROLTE TO DC
--- NOTE | 2019-11-24 14:38 | NUR ---
CHG BATH PROVIDED AT THIS TIME. TOTAL LINEN CHANGE PROVIDED. PT NOTED WEAK AT THIS TIME, ABLE TO MUMBLE REQUESTS FOR WATER. PT NOTIFIED THAT WHEN SHE WAKES UP MORE SHE WILL BE ABLE TO TRY A FEW ICE CHIPS. TURNED Q2H. ORAL CARE PROVIDED. WILL CONTINUE PLAN OF CARE.
--- NOTE | 2019-11-24 14:57 | NUR ---
PT NOTED PULLING OFF OXYGEN AND PULLING OFF PULSE OX AND CARDIAC MONITORS. ITEMS REPLACED BY NURSE. PT EDUCATED TO NOT PULL AT LINES OR TUBES. PT NOTED CURRENTLY CONFUSED TO SITUATION AND TIME. REORIENTATION PROVIDED. VSS. WILL CONTINUE PLAN OF CARE.
--- NOTE | 2019-11-24 15:01 | NUR ---
CALLED PTS DAUGHTER AT THIS TIME (EMERGENCY CONTACT) UPDATES PROVIDED. PT CURRENTLY PULLING AT LINES AT TUBES, INCLUDING TAKING OXYGEN OFF AND PULLING EKG MONITORING EQUIPMENT AND O2 SAT MONITOR. TEACHING PERFORMED FOR HER TO NOT PULL AT LINES OR TUBES. PT CONTINUES TO PULL OXYGEN OFF. CURRENT OXYGEN SATURATION 98% ON ROOM AIR. ENCOURAGED TO TURN, COUGH, AND DEEP BREATHE. VSS. WILL CONTINUE PLAN OF CARE.
--- NOTE | 2019-11-24 15:19 | NUR ---
PT NOTED ATTEMPTING TO PULL AT TRIALYSIS LINE, CARDIAC MONITORS, PULSE OX, AND OXYGEN. BILATERAL SOFT WRIST RESTRAINTS PLACED. EDUCATION PROVIDED. VSS. WILL CONTINUE PLAN OF CARE.
--- NOTE | 2019-11-24 16:21 | NUR ---
PTS SBP TRENDING 170-180S DR WISDOM NOTIFIED OF THIS, STATED TO RESTART PTS HOME BETAPACE 80MG BID. ORDERS PLACED.
--- NOTE | 2019-11-24 18:11 | NUR ---
BP STILL TRENDING HIGH AFTER RECIEVING BETAPACE, DR WISDOM NOTIFIED OF THIS, ORDER RECIEVED FOR 10 HYDRALAZINE IV Q3H PRN FOR SBP OVER 160. ALSO NOTIFIED PHYSICIAN OF LOW POTASSIUM LEVELS WHICH ARE BEING COVERED PER ELECTROLYTE PROTOCOL, NO NEW ORDERS RECIEVED REGARDING THIS. WILL CONTINUE PLAN OF CARE.
--- NOTE | 2019-11-24 19:00 | NUR ---
ASSESSMENT COMPLETED. CONFUSION TO SITUATION ONLY. GARBLED SPEECH. REPOSITIONED.
--- NOTE | 2019-11-24 21:00 | NUR ---
REPOSITIONED. ORAL CARE PROVIDED. PATIENT CONFUSED, STATING SHE IS LEAVING TO GO HOME TONIGHT
--- NOTE | 2019-11-24 23:00 | NUR ---
RE-ASSESSMENT COMPLETED. NO CHANGES SINCE LAST ASSESSMENT. REPOSITIONED
[2019-11-25] VITALS (27 sets, daily range): BP systolic 120–180; BP diastolic 64–102
--- NOTE | 2019-11-25 01:00 | NUR ---
REPOSITIONED AND ORAL CARE PROVIDED.
--- NOTE | 2019-11-25 03:00 | NUR ---
RE-ASSESSMENT COMPLETED. NO CHANGES SINCE LAST ASSESSMENT. PATIENT YELLING "HEY." WHEN NURSE ASK WHAT IS WRONG, PATIENT JUST KEEPS YELLING "HEY."
[2019-11-25 04:44] LABS: ALBUMIN 2.9 g/dL (3.4-5.0); ANION GAP 8.5 mmol/L (8-16); BILIRUBIN - TOTAL 2.05 mg/dL (0.2-1.3); CALCIUM 8.4 mg/dL (8.5-10.1); CARBON DIOXIDE 37.5 mmol/L (21.0-32.0); CREATININE - SERUM 1.3 mg/dL (0.6-1.3); MAGNESIUM - SERUM 1.4 mg/dL (1.8-2.4); PHOSPHOROUS 2.1 mg/dL (2.5-4.9); PROTEIN - SERUM 5.7 g/dL (6.4-8.2)
--- NOTE | 2019-11-25 05:00 | NUR ---
REPOSITIONED. ORAL CARE PROVIDED. PT CONT TO ESPINOZA "JERI."
--- NOTE | 2019-11-25 06:00 | NUR ---
PT O2 SAT TRENDING DOWN TO LOW 90'S INCREASED NC O2 TO 8LPM.
[2019-11-25 08:07] LABS: HEMATOCRIT 38.6 % (36.0-48.0); HEMOGLOBIN 11.7 g/dL (12-16); MCH 28.7 pg (26.0-34.0); MCHC 30.3 g/dL (31.0-37.0); MCV 94.6 fL (80.0-100.0); PLATELET COUNT 50 10x3/uL (130-400); RBC 4.08 10x6/uL (4.00-5.40); RDW 18.3 % (11.5-14.5); WBC 27.1 10x3/uL (4.8-10.8)
--- NOTE | 2019-11-25 08:21 | NUR ---
PT UP IN BED AT THIS TIME AWAKE. PT NOTED TO HAVE SOME CONFUSION TO SITUATION. WAS ABLE TO STATE NAME, LOCATION, AND YEAR, BUT WAS UNABLE TO RECALL RECENT EVENTS SUCH THAT SHE WAS ON THE VENTILATOR YESTERDAY, AND DID NOT REMEMBER WHY SHE WAS IN THE HOSPITAL. REORIENTATION PROVIDED. VSS. WILL CONTINUE PLAN OF CARE.
[2019-11-25 08:36] LABS: LYMPHOCYTES 4 % (15-50); NEUTROPHILS 96 % (40-80); PLATELET ESTIMATE DECREASED
--- NOTE | 2019-11-25 09:25 | NUR ---
DR RODRIGUEZ NOTIFIED OF PTS LUNG SOUNDS HAVING INSPIRATORY AND EXPIRATORY WHEEZING AND CRACKLES. ORDER RECEIVED FOR ABG. PHYSICIAN IN ROOM TO SEE PT. WILL CONTINUE PLAN OF CARE.
--- NOTE | 2019-11-25 10:01 | NUR ---
AWAKE, CONFUSED YELLING "HELP" WHEN ASKED PT WHAT SHE NEEDED HELP WITH SHE WOULD ONLY REPEAT THE WORD "I WANT SOME WATER." ATTEMPTED TO GIVE PT A SIP OF WATER, AND NOTED SHE WAS UNABLE TO SUCK THE STRAW TO ATTEMPT TO DRINK, DR RODRIGUEZ HERE, NOTIFIED OF THIS.
--- NOTE | 2019-11-25 10:55 | NUR ---
K RECHECK LEVEL IS 3.6.
--- NOTE | 2019-11-25 11:05 | NUR ---
AXILLARY TEMP 94.7. BEAR HUGGER PLACED.
--- NOTE | 2019-11-25 11:25 | NUR ---
PER DR RODRIGUEZ, SPEECH CONSULT TO HAVE THEM EVALUATE PT.
--- NOTE | 2019-11-25 12:10 | NUR ---
PT NOTED REPEATING "HELP, HELP, HELP ME." NURSE AT BEDSIDE DURING THIS TIME, ASKED PT WHAT SHE NEEDED, PT RESPONDED "HELP...I NEED WATER." EXPLAINED TO PT THAT SHE RECENTLY TRIED TO DRINK WATER BUT WAS NOT STRONG ENOUGH TO SUCK THE STRAW AND WE WERE WAITING FOR SPEECH THERAPY TO SEE PT AND EVALUATE, PT WOULD STATE "HELP." REASSESSED PTS ORIENTATION: SHE WAS ABLE TO STATE HER NAME "BRAD," THE LOCATION "[place]," THE YEAR "2019." WHEN ASKED PT IF SHE KNEW WHY SHE WAS IN THE HOSPITAL, SHE STATED "I DON'T KNOW." PT THEN BEGAN REPEATING HERSELF STATING "TRUMP, TRUMP, TRUMP." PT STILL ATTEMPTING TO PULL AT LINES AND TUBES WELL TRYING TO PULL BEAR HUGGER OFF, RESTRAINTS STILL IN PLACE FOR PT SAFETY. TEACHING PROVIDED TO PT REGARDING BEAR HUGGER, PT STILL CONFUSED. WILL CONTINUE TO ATTEMPT TO PROVIDE ORIENTATION. WILL CONTINUE TO CLOSELY OBSERVE.
--- NOTE | 2019-11-25 12:36 | NUR ---
PER SPEECH THERAPIST: STRICT NPO.
--- NOTE | 2019-11-25 13:02 | NUR ---
WAITING FOR VANC TROUGH RESULTS TO COME IN BEFORE ADMIN VANC.
--- NOTE | 2019-11-25 13:33 | NUR ---
ASKED DR WISDOM IF HE WANTED A HEAD CT ON PT SINCE SHE HAS BEEN CONFUSED TODAY. PT ABLE TO ANSWER CERTAIN QUESTIONS APPROPIATELY SUCH PERSON, TIME, AND LOCATION, BUT CONFUSED TO SITUATION, STILL ATTEMPTING TO PULL AT LINES AND TUBES, AND CALLS OUT "HELP" FREQUENTLY BUT UNABLE TO TELL STAFF WHAT SHE WANTS HELP WITH. DR WISDOM STATED HEAD CT IS NOT NEEDED AT THIS TIME, BUT HE WILL REVIEW THE EMAR.
--- NOTE | 2019-11-25 13:46 | NUR ---
AUXILLARY TEMP 97.4. BEAR HUGGER TURNED OFF.
--- NOTE | 2019-11-25 15:29 | NUR ---
PTS BLOOD PRESSURE 180/98, PRN HYDRALAZINE ADMIN.
--- NOTE | 2019-11-25 17:21 | NUR ---
NOTIFIED DR WISDOM THAT PT CONTINUES TO BE CONFUSED AND CONTINUES TO CALL FOR HELP WITH NO ANSWER BUT "HELP" WHEN STAFF ASK PT WHAT SHE NEEDS HELP WITH. PHYSICIAN ORDERED A HEAD CT.
--- NOTE | 2019-11-25 17:30 | NUR ---
PTS FAMILY UPDATED, CALLED EMERGENCY CONTACT.
--- NOTE | 2019-11-25 18:06 | NUR ---
HEAD CT RESULTS CALLED TO DR WISDOM, NO NEW ORDERS RECIEVED.
--- NOTE | 2019-11-25 20:00 | NUR ---
REPORT RECEIVED ASSESSMENT COMPLETE. PT AWAKE ANSWERS QUESTION OF WHERE SHE IS BY SAYING [employer], STATES ITS 2020 AND ROSIO IS PRESIDENT. SQUEEZES LEFT HAND AND MOVES LEFT LOWER EXTREMITY. NO MOVEMENT WITH RIGHT UPPER OR LOWER EXTREMITIES DWORKIN AWARE PER DAYSHIFT NURSE PT HAD CT THIS AFTERNOON. PUPILS 5 JESUS. CM READING SR WITHOUT ECTOPY ALARMS ON AND AUDIBLE. BED LOW POSITION SIDE RAILS UP X 3 FOR SAFETY PT DOES HAVE RESTRAINTS REMOVED RIGHT SIDE SINCE UNABLE TO MOVE RIGHT SIDE. PT DOES REACH UP TO TRIALYSIS IN RIGHT IJ WITH LEFT HAND. RESP SHALLOW AND PT GETS SOB WITH ACTIVITY AND TALKING O2 SAT 94% ON 5LPM HFNC. WILL CONTINUE TO MONITOR
--- NOTE | 2019-11-25 20:01 | NUR ---
PER REPORT FROM BUNNY RN WHEN RESULTS OF CT CALLED TO [facility] WISDOM STATED SHE HAD STROKE NO FURTHER ORDERS WERE GIVEN
--- NOTE | 2019-11-25 23:00 | NUR ---
REASSESSMENT COMPLETE NO CHANGES CPOC
[2019-11-26] VITALS (17 sets, daily range): BP systolic 78–147; BP diastolic 45–80
--- NOTE | 2019-11-26 03:00 | NUR ---
RESTRAINT D/C CPOC REASSESSMENT COMPLETE
--- NOTE | 2019-11-26 06:00 | NUR ---
PT O2 SAT TRENDING DOWN LOW 90'S HFNC INCREASED TO 8LPM
--- NOTE | 2019-11-26 06:17 | NUR ---
CALLED ARTIS INFORMED OF PT DECLINE IN NEURO STATUS DROP IN PRESSURE AND INCREASED RR. NEW ORDERS NOTED.
[2019-11-26 06:19] LABS: MAGNESIUM - SERUM 1.5 mg/dL (1.8-2.4); POTASSIUM - SERUM 3.4 mmol/L (3.5-5.1)
[2019-11-26 06:20] LABS: PHOSPHOROUS 2.8 mg/dL (2.5-4.9)
--- NOTE | 2019-11-26 07:15 | NUR ---
REPORT RECEIVED.A SSESSMENT COMPLETE PER FLOW SHEET. VSS. PT RESTING COMFORTABLY WILL CONTINUET O MONITOR
--- NOTE | 2019-11-26 07:25 | NUR ---
PT DAUGHTER, BROOKE CALLED AND NOTIFIED REGARDING PT DECLINING STATUS/POSSIBLE REINTUBATION. STATES SHE WILL CALL HER BROTHER AND CALL THE UNIT BACK.
--- NOTE | 2019-11-26 07:37 | NUR ---
PT DAUGHTER, BROOKE CAPPS RETURNED CALL AND CODE STATUS CHANGED PER FAMILY WISHES.
[2019-11-26 10:08] LABS: FUNGUS STAIN Final report (())
--- NOTE | 2019-11-26 11:40 | MORECARE ---
CASE MANAGEMENT DISCHARGE SUMMARY PATIENT: HEMANTH DUMONT UNIT: [id number] ADM DATE: 11/17/19 AGE: 69 : 52 SEX: F ROOM/BED: D.2307 AUTHOR: SOFIA,DOC PHYSICIAN: REFERRING PHYSICIAN: TAMI WISDOM MD DATE OF SERVICE: 11/26/19 Discharge Plan Patient Name: HEMANTH DUMONT Facility: [facility]:[place] : 1950 Planned Disposition: Anticipated Discharge Date: Discharge Date: Expected LOS: Initial Reviewer: [email or web address] Initial Review Date: 11/20/2019 Generated: 11/26/19 12:39 pm DCP- Discharge Planning Updated by [email or web address]: Natalya Melgar on 11/20/19 5:[address] Patient Name: HEMANTH DUMONT Admission Status: ER Accout number: [id number] Admission Date: 11-17-2019 : 1950 Admission Diagnosis:DIARRHEA, UNSPECIFIED Attending: TAMI WISDOM Current LOS: 3 Anticipated DC Date: Planned Disposition: Primary Insurance: MEDICARE A & B Discharge Planning Comments: Patient is lethargic and unable to answer any of CM discharge planning questions. CM attempted to call ruth Hunter but the number is disconnected. CM looked back at previous admission and patient has a walker and shower chair and lived with her son's mother n law. She was set up with [facility] last admission this month. CM can see that she was trying to get meals on wheels set up. CM will get CARLITOS for once able to contact family or patient is more oriented. CM will continue to follow and assist as needed with discharge planning / needs. Deputy Jailer: Natalya Melgar DCPIA - Discharge Planning Initial Assessment Updated by [email or web address]: Natalya Melgar on 11/20/19 5:43 pm * Is the patient Alert and Oriented? No * PCP [facility] * Pharmacy [facility] * Preadmission Environment Home Alone * ADLs Independent * Equipment Rolling Walker Shower Chair * List name and contact numbers for known caregivers / representatives who currently or will assist patient after discharge: ANA GÉNESIS - RUTH - [phone] ?? * Verbal permission to speak to the caregivers and representatives has been obtained from the patient. Yes * Community resources currently utilized Home Health * Please name any agencies selected above. [facility] * Additional services required to return to the preadmission environment? No * Can the patient safely return to the preadmission environment? Yes * Has this patient been hospitalized within the prior 30 days at any hospital? Yes External Providers External Provider[facility] [facility] Next Contact Date: Service Request Date: Service Type: Resolution: Reviewer: Comments: Last DP export: 11/20/19 5:05 p Patient Name: HEMANTH DUMONT Page [id number] at 1140 All edits/amendments must be made on the electronic document DICTATION DATE: 11/26/191138 DEVELOPER PROGRAMMER: JERSON 11/26/19 113 RPT#: [id number] DC DATE: STATUS: ADM IN [facility] [address] [place] [address] END OF REPORT
--- NOTE | 2019-11-27 08:06 | MORECARE ---
CASE MANAGEMENT DISCHARGE SUMMARY PATIENT: HEMANTH DUMONT UNIT: [id number] ADM DATE: 11/17/19 AGE: 69 : 54 SEX: F ROOM/BED: D.2307 AUTHOR: SOFIA,DOC PHYSICIAN: REFERRING PHYSICIAN: TAMI WISDOM MD DATE OF SERVICE: 11/27/19 Discharge Plan Patient Name: HEMANTH DUMONT Facility: [facility]:[place] : 1950 Planned Disposition: Anticipated Discharge Date: Discharge Date: 11/26/2019 Expected LOS: Initial Reviewer: [email or web address] Initial Review Date: 11/20/2019 Generated: 11/27/19 9:05 am DCP- Discharge Planning Updated by [email or web address]: Natalya Melgar on 11/20/19 5:[address] Patient Name: HEMANTH DUMONT Admission Status: ER Accout number: [id number] Admission Date: 11-17-2019 : 1950 Admission Diagnosis:DIARRHEA, UNSPECIFIED Attending: TAMI WISDOM Current LOS: 3 Anticipated DC Date: Planned Disposition: Primary Insurance: MEDICARE A & B Discharge Planning Comments: Patient is lethargic and unable to answer any of CM discharge planning questions. CM attempted to call ruth Hunter but the number is disconnected. CM looked back at previous admission and patient has a walker and shower chair and lived with her son's mother n law. [facility] this [facility]. CM can see that she was trying to get meals on wheels set up. CM will get CARLITOS for once able to contact family or patient is more oriented. CM will continue to follow and assist as needed with discharge planning / needs. Body And Fender Worker: Natalya Melgar DCPIA - Discharge Planning Initial Assessment Updated by [email or web address]: Natalya Melgar on 11/20/19 5:43 pm * Is the patient Alert and Oriented? No * PCP HEMANTH * Pharmacy [facility] * Preadmission Environment Home Alone * ADLs Independent * Equipment Rolling Walker Shower Chair * List name and contact numbers for known caregivers / representatives who currently or will assist patient after discharge: ANA CAPPS - RUTH - [phone] ?? * Verbal permission to speak to the caregivers and representatives has been obtained from the patient. Yes * Community resources currently utilized Home Health * Please name any agencies selected above. [facility] * Additional services required to return to the preadmission environment? No * Can the patient safely return to the preadmission environment? Yes * Has this patient been hospitalized within the prior 30 days at any hospital? Yes Last DP export: 11/26/19 10:40 a Patient Name: HEMANTH DUMONT Page 30095 at 0806 All edits/amendments must be made on the electronic document DICTATION DATE: 11/27/19804 LEAD LEVEL DESIGNER: JERSON 11/27/19804 RPT#: [id number] DC DATE:11/26/19 STATUS: DIS IN [facility] [address] [place] [address] END OF REPORT
== END 2019-11-26 18:16 | disposition hospice, inpatient (51) | DRG 853 ==
LOC: D.ER 14:45 → D.ICU 18:02 → D.M2 18:02 → D.ICU 11-18 20:25
PROVIDERS: Family Medicine; Internal Medicine Nephrology; Internal Medicine Pulmonary Disease; ADMIT Internal Medicine Nephrology; ATTEND Internal Medicine Nephrology
PROC: 05HM33Z Insertion of Infusion Device into Right Internal Jugular Vein, Percutaneous Approach (ICD-10-PCS; 2019-11-19)
PROC: B543ZZA Ultrasonography of Right Jugular Veins, Guidance (ICD-10-PCS; 2019-11-19)
PROC: 0BH17EZ Insertion of Endotracheal Airway into Trachea, Via Natural or Artificial Opening (ICD-10-PCS; 2019-11-21)
PROC: 5A1945Z Respiratory Ventilation, 24-96 Consecutive Hours (ICD-10-PCS; 2019-11-21)
PROC: 0BBF8ZX Excision of Right Lower Lung Lobe, Via Natural or Artificial Opening Endoscopic, Diagnostic (ICD-10-PCS; principal; 2019-11-23)
PROC: 0B9J8ZX Drainage of Left Lower Lung Lobe, Via Natural or Artificial Opening Endoscopic, Diagnostic (ICD-10-PCS; 2019-11-23)
DX: A41.50 Gram-negative sepsis, unspecified (principal); N17.0 Acute kidney failure with tubular necrosis; G92 Toxic encephalopathy; K72.00 Acute and subacute hepatic failure without coma; R65.21 Severe sepsis with septic shock; R57.1 Hypovolemic shock; I63.9 Cerebral infarction, unspecified; J96.01 Acute respiratory failure with hypoxia; N39.0 Urinary tract infection, site not specified; E87.1 Hypo-osmolality and hyponatremia; J44.0 Chronic obstructive pulmonary disease with (acute) lower respiratory infection; E87.5 Hyperkalemia; D64.9 Anemia, unspecified; M06.9 Rheumatoid arthritis, unspecified; I10 Essential (primary) hypertension; E78.5 Hyperlipidemia, unspecified; E11.9 Type 2 diabetes mellitus without complications; F41.8 Other specified anxiety disorders; K21.9 Gastro-esophageal reflux disease without esophagitis; R91.8 Other nonspecific abnormal finding of lung field; B96.20 Unspecified Escherichia coli [E. coli] as the cause of diseases classified elsewhere; E87.6 Hypokalemia; J20.9 Acute bronchitis, unspecified

== ENCOUNTER 2019-11-26 18:17 | Inpatient (IN) | payer OTHER ==
[~2019-11-26] VITALS: Ht 162.6 cm; Wt 71.1 kg
[2019-11-26 18:27] VITALS: BP 86/54; BMI 26.9
--- NOTE | 2019-11-26 18:45 | NUR ---
PT RECEIVED IN HOSPICE CARE AT THIS TIME. REFER TO ASSESSMENT FLOW SHEET FOR FINDINGS. PT STABLE FAMILY AT BEDSIDE
[2019-11-26 19:00] VITALS: BP 92/57
[2019-11-26 23:00] VITALS: BP 86/54
[2019-11-27 03:00] VITALS: BP 78/49
--- NOTE | 2019-11-27 06:49 | NUR ---
1900 - REPORT RECEIVED, ASSESSMENT COMPLETED, SEE FLOWSHEET. 2100 - NO CHANGES IN STATUS. 2300 - NO CHANGES IN STATUS. 0100 - REPOSITIONED FOR COMFORT. 0300 - NO CHANGES IN STATUS. 0500 - REPOSITIONED FOR COMFORT. CHG BATH GIVEN.
[2019-11-27 07:00] VITALS: BP 74/43
--- NOTE | 2019-11-27 07:03 | NUR ---
REPORT RECEIVED. ASSESSMNT COMPLETE PER FLOW SHEET. VSS. PT RESTING COMFORTABLY REPOSITIONED FOR COMFORT. SHERMAN TRICOT KNITTING MACHINE OPERATOR AT BEDSIDE NO FAMILY PRESENT NO NEW ORDERS RECIEVED.
--- NOTE | 2019-11-27 08:06 | MORECARE ---
CASE MANAGEMENT DISCHARGE SUMMARY PATIENT: HEMANTH DUMONT UNIT: [id number] ADM DATE: 11/26/19 AGE: 69 : 52 SEX: F ROOM/BED: D.2307 AUTHOR: TALYA BLACK PHYSICIAN: REFERRING PHYSICIAN: AMANDA SANCHEZ MD DATE OF SERVICE: 11/27/19 Discharge Plan Patient Name: HEMANTH DUMONT [facility] [facility] 1950 Planned Disposition: Anticipated Discharge Date: 11/28/19 Discharge Date: Expected LOS: 2 Initial Reviewer: [email or web address] Initial Review Date: 11/27/2019 Generated: 11/27/19 9:06 am Patient Name: HEMANTH DUMONT Page 23621 at 0806 All edits/amendments must be made on the electronic document DICTATION DATE: 11/27/19805 PRODUCTION ENGINE REPAIRER: JERSON 11/27/19 08 RPT#: [id number] DC DATE: STATUS: ADM IN [facility] [address] [place] [address] END OF REPORT
--- NOTE | 2019-11-27 08:10 | NUR ---
KAM DAUGHTER CALLED GIVEN UPDATE REGUARDING PT STATED STATED WOULD CALL ARTIE TO COME BE WITH HEMANTH DUMONT. STEPHANIE CALLED GIVEN UDPATE STATED WOULD TRY TO COME UP. STATED OKAY.
[2019-11-27 08:29] VITALS: Ht 162.6 cm; Wt 71.1 kg
--- NOTE | 2019-11-27 09:27 | NUR ---
NO HR NOTED. STEPHANIE SON AT BEDSIDE GIVEN UPDATE. HOSPICE CALLED GIVEN UPDATE STATED WOULD SEND NURSE TO [facility]. SOL RUBBER DOWN CALLED GIVEN UPDATE.
--- NOTE | 2019-11-27 10:48 | NUR ---
ISABEL CALLED GIVEN UPDATE. PT RULED OUT.
--- NOTE | 2019-11-27 12:59 | NUR ---
HOME HERE FOR PT
--- NOTE | 2019-11-27 13:21 | MORECARE ---
CASE MANAGEMENT DISCHARGE SUMMARY PATIENT: HEMANTH DUMONT UNIT: [id number] ADM DATE: 11/26/19 AGE: 69 : 54 SEX: F ROOM/BED: D.2307 AUTHOR: TALYA BLACK PHYSICIAN: REFERRING PHYSICIAN: AMANDA SANCHEZ MD DATE OF SERVICE: 11/27/19 Discharge Plan Patient Name: HEMANTH DUMONT [facility] [facility] 1950 Planned Disposition: Anticipated Discharge Date: 11/28/19 Discharge Date: 11/27/2019 Expected LOS: 2 Initial Reviewer: [email or web address] Initial Review Date: 11/27/2019 Generated: 11/27/19 2:21 pm Last DP export: 11/27/19 7:06 a Patient Name: HEMANTH DUMONT Page 45319 at 1321 All edits/amendments must be made on the electronic document DICTATION DATE: 11/27/19 1321 EXTRUSION FORMER: JERSON 11/27/19 1321 RPT#: [id number] DC DATE:11/27/19 STATUS: DIS IN [facility] [address] [place] [address] END OF REPORT
== END 2019-11-27 09:10 | DRG 951 ==
LOC: D.ICU 18:17
PROVIDERS: ADMIT Legal Medicine; ATTEND Legal Medicine
DX: Z51.5 Encounter for palliative care (principal)